=== PATIENT | female | born 1980 | race Caucasian/White ===

== ENCOUNTER 2019-05-17 14:50 | Inpatient (IN) | payer OTHER ==
[2019-05-17] MEDS ORDERED: SODIUM CHLORIDE 0.9% 1,000 ML IV STA ×2 (15:38)
[2019-05-17] MEDS ORDERED: LORazepam 2 MG/ML INJ IV STA (15:39)
--- NOTE | 2019-05-17 15:59 | ED ---
General Adult HPI <Francisco Sotelo - Last Filed: 05/17/19 19:35> - General Source: patient, RN notes reviewed, old records reviewed Mode of arrival: ambulatory Limitations: no limitations <Claudia Sargentily - Last Filed: 05/17/19 19:48> - General Chief complaint: Chest Pain Stated complaint: Chest pain & pressure Time Seen by Provider: 05/17/19 15:26 - History of Present Illness Initial comments: 39-year-old female presents today for evaluation for concern for chest discomfort. Symptoms starting last night. She felt a sharp ball-like symptom in her chest, complaining of tightness feeling. She states that her heart rate seems to be high and fluttering. Patient states that she's been having symptoms off and on for a few months worsewith exertion, She reports it seemed like it would eventually would cause her to come to the hospital. She has not seen a primary care doctor ever been evaluated for this before. He states sometimes she feels dizzy and near syncopal. (Jodie Sargent) - Related Data Home Medications Medication Instructions Recorded Confirmed Calcium Carbonate [Tums] 500 mg PO QID PRN 05/17/19 05/17/19 Allergies Allergy/AdvReac Type Severity Reaction Status Date / Time No Known Allergies Allergy Verified 05/17/19 18:44 Review of Systems ROS Other: All systems not noted in ROS Statement are negative. <Francisco Sotelo - Last Filed: 05/17/19 19:35> ROS Other: All systems not noted in ROS Statement are negative. <Jodie Sargent - Last Filed: 05/17/19 19:48> ROS Statement: Those systems with pertinent positive or pertinent negative responses have been documented in the HPI. Past Medical History Past Medical History: No Reported History History of Any Multi-Drug Resistant Organisms: None Reported Additional Past Surgical History / Comment(s): tubal ligation Past Psychological History: No Psychological Hx Reported Smoking Status: Never smoker Past Alcohol Use History: Occasional Past Drug Use History: None Reported <Jodie Sargent - Last Filed: 05/17/19 19:48> General Exam Limitations: no limitations Head exam: Present: atraumatic, normocephalic, normal inspection Eye exam: Present: normal appearance, PERRL, EOMI. Absent: scleral icterus, conjunctival injection, periorbital swelling ENT exam: Present: normal exam, mucous membranes moist Neck exam: Present: normal inspection. Absent: tenderness, meningismus, lymphadenopathy Respiratory exam: Present: normal lung sounds bilaterally. Absent: respiratory distress, wheezes, rales, rhonchi, stridor Cardiovascular Exam: Present: normal rhythm, tachycardia (120 bpm), normal heart sounds. Absent: regular rate, systolic murmur, diastolic murmur, rubs, gallop, clicks GI/Abdominal exam: Present: soft, normal bowel sounds. Absent: distended, tenderness, guarding, rebound, rigid Back exam: Present: normal inspection Neurological exam: Present: alert, oriented X3, CN II-XII intact Psychiatric exam: Present: normal affect, normal mood <Jodie Sargent - Last Filed: 05/17/19 19:48> - General Exam Comments Initial Comments: 1-year-old female. Alert and oriented 3 (Jodie Sargent) Course Vital Signs 05/17/19 05/17/19 05/17/19 14:54 15:25 15:27 Temperature 99 F Pulse Rate 127 H Pulse Rate [ 120 H Tromper ] Respiratory 16 43 H Rate Blood Pressure 158/125 O2 Sat by Pulse 98 Oximetry 05/17/19 05/17/19 05/17/19 15:30 16:00 16:30 Temperature Pulse Rate 128 H 104 H 104 H Pulse Rate [ Tromper ] Respiratory 20 16 16 Rate Blood Pressure 164/132 160/119 144/107 O2 Sat by Pulse Oximetry 05/17/19 05/17/19 05/17/19 17:00 17:30 18:00 Temperature Pulse Rate 100 100 100 Pulse Rate [ Tromper ] Respiratory 19 16 18 Rate Blood Pressure 133/93 134/107 136/99 O2 Sat by Pulse Oximetry 05/17/19 19:08 Temperature Pulse Rate Pulse Rate [ Tromper ] Respiratory Rate Blood Pressure 132/93 O2 Sat by Pulse Oximetry Medical Decision Making - Lab Data Result diagrams: 05/17/19 15:30 05/17/19 15:30 <Francisco Sotelo - Last Filed: 05/17/19 19:35> - Lab Data Result diagrams: 05/17/19 15:30 05/17/19 15:30 <Jodie Sargent - Last Filed: 05/17/19 19:48> - Medical Decision Making 39-year-old female presents today for evaluation for concerns for chest pain. S ubsternal nature. Some near syncopal episodes. No significant history. She reports she's been having some history of palpitations. She arrived with heart rates in 1:30 but sinus tachycardia. She states it feels that there is a pressure on her chest. Patient's initial troponin was negative. Patient's vital signs have improved after Ativan, was still complains of some chest pressure reading in a 6 out of 10. Morphine and aspirin were given. Patient that at this time for serial troponins. Discussed case with Dr. Leal. (Jodie Sargent) - Lab Data Lab Results 05/17/19 05/17/19 05/17/19 Range/Units 15:30 15:30 15:30 WBC 8.7 (3.8-10.6) k/uL RBC 4.73 (3.80-5.40) m/uL Hgb 15.5 (11.4-16.0) gm/dL Hct 47.3 H (34.0-46.0) % MCV 99.9 (80.0-100.0) fL MCH 32.7 (25.0-35.0) pg MCHC 32.7 (31.0-37.0) g/dL RDW 12.3 (11.5-15.5) % Plt Count 338 (150-450) k/uL Neutrophils % 73 % Lymphocytes % 16 % Monocytes % 5 % Eosinophils % 1 % Basophils % 2 % Neutrophils # 6.4 (1.3-7.7) k/uL Lymphocytes # 1.4 (1.0-4.8) k/uL Monocytes # 0.4 (0-1.0) k/uL Eosinophils # 0.1 (0-0.7) k/uL Basophils # 0.2 (0-0.2) k/uL PT 10.1 (9.0-12.0) sec INR 0.9 (<1.2) APTT 21.9 L (22.0-30.0) sec D-Dimer 0.38 (<0.60) mg/L FEU Sodium 138 (137-145) mmol/L Potassium 4.3 (3.5-5.1) mmol/L Chloride 103 (98-107) mmol/L Carbon Dioxide 20 L (22-30) mmol/L Anion Gap 15 mmol/L BUN 10 (7-17) mg/dL Creatinine 0.82 (0.52-1.04) mg/dL Est GFR (CKD-EPI)AfAm >90 (>60 ml/min/1.73 sqM) Est GFR (CKD-EPI)NonAf 89 (>60 ml/min/1.73 sqM) Glucose 81 (74-99) mg/dL Calcium 10.7 H (8.4-10.2) mg/dL Magnesium 1.7 (1.6-2.3) mg/dL Total Bilirubin 1.2 (0.2-1.3) mg/dL AST 119 H (14-36) U/L ALT 130 H (4-34) U/L Alkaline Phosphatase 118 (38-126) U/L Troponin I (0.000-0.034) ng/mL NT-Pro-B Natriuret Pep pg/mL Total Protein 8.4 H (6.3-8.2) g/dL Albumin 5.1 H (3.5-5.0) g/dL Amylase 43 (30-110) U/L Lipase 86 (23-300) U/L 05/17/19 05/17/19 05/17/19 Range/Units 15:30 15:30 19:08 WBC (3.8-10.6) k/uL RBC (3.80-5.40) m/uL Hgb (11.4-16.0) gm/dL Hct (34.0-46.0) % MCV (80.0-100.0) fL MCH (25.0-35.0) pg MCHC (31.0-37.0) g/dL RDW (11.5-15.5) % Plt Count (150-450) k/uL Neutrophils % % Lymphocytes % % Monocytes % % Eosinophils % % Basophils % % Neutrophils # (1.3-7.7) k/uL Lymphocytes # (1.0-4.8) k/uL Monocytes # (0-1.0) k/uL Eosinophils # (0-0.7) k/uL Basophils # (0-0.2) k/uL PT (9.0-12.0) sec INR (<1.2) APTT (22.0-30.0) sec D-Dimer (<0.60) mg/L FEU Sodium (137-145) mmol/L Potassium (3.5-5.1) mmol/L Chloride (98-107) mmol/L Carbon Dioxide (22-30) mmol/L Anion Gap mmol/L BUN (7-17) mg/dL Creatinine (0.52-1.04) mg/dL Est GFR (CKD-EPI)AfAm (>60 ml/min/1.73 sqM) Est GFR (CKD-EPI)NonAf (>60 ml/min/1.73 sqM) Glucose (74-99) mg/dL Calcium (8.4-10.2) mg/dL Magnesium (1.6-2.3) mg/dL Total Bilirubin (0.2-1.3) mg/dL AST (14-36) U/L ALT (4-34) U/L Alkaline Phosphatase (38-126) U/L Troponin I <0.012 <0.012 (0.000-0.034) ng/mL NT-Pro-B Natriuret Pep 156 pg/mL Total Protein (6.3-8.2) g/dL Albumin (3.5-5.0) g/dL Amylase (30-110) U/L Lipase (23-300) U/L Disposition <Francisco Sotelo - Last Filed: 05/17/19 19:35> Time of Disposition: 19:48 <Jodie Sargent - Last Filed: 05/17/19 19:48> Clinical Impression: Atypical chest pain, Chest pain Disposition: [facility] Condition: Undetermined Instructions (If sedation given, give patient instructions): Chest Pain (ED) Referrals: None,Stated [Primary Care Provider] - 1-2 days
[2019-05-17 16:13] LABS: Basophils # (A) 0.2 k/uL (0-0.2); Basophils % (A) 2 %; Eosinophils # (A) 0.1 k/uL (0-0.7); Eosinophils % (A) 1 %; HCT 47.3 % (34.0-46.0); HGB 15.5 gm/dL (11.4-16.0); Lymphocytes # (A) 1.4 k/uL (1.0-4.8); Lymphocytes % (A) 16 %; MCH 32.7 pg (25.0-35.0); MCHC 32.7 g/dL (31.0-37.0); MCV 99.9 fL (80.0-100.0); Mean Platelet Volume 8.3; Monocytes # (A) 0.4 k/uL (0-1.0); Monocytes % (A) 5 %; Neutrophils # (A) 6.4 k/uL (1.3-7.7); Neutrophils % (A) 73 %; Platelet Count 338 k/uL (150-450); RBC 4.73 m/uL (3.80-5.40); RDW 12.3 % (11.5-15.5); WBC 8.7 k/uL (3.8-10.6)
[2019-05-17 16:25] LABS: ALT 130 U/L (4-34); AST 119 U/L (14-36); African American GFR (CKD) >90 (>60 ml/min/1.73 sqM); Albumin 5.1 g/dL (3.5-5.0); Alkaline Phosphatase 118 U/L (38-126); Amylase 43 U/L (30-110); Anion Gap 15 mmol/L; Blood Urea Nitrogen 10 mg/dL (7-17); Calcium 10.7 mg/dL (8.4-10.2); Carbon Dioxide 20 mmol/L (22-30); Chloride 103 mmol/L (98-107); Glucose 81 mg/dL (74-99); Magnesium 1.7 mg/dL (1.6-2.3); Non-African American GFR(CKD) 89 (>60 ml/min/1.73 sqM); Potassium 4.3 mmol/L (3.5-5.1); Sodium 138 mmol/L (137-145); Total Bilirubin 1.2 mg/dL (0.2-1.3); Total Protein 8.4 g/dL (6.3-8.2)
--- NOTE | 2019-05-17 16:28 | XR ---
EXAMINATION TYPE: XR chest 2V DATE OF EXAM: 05/17/2019 COMPARISON: None INDICATION: Chest pain TECHNIQUE: Frontal and lateral views of the chest are obtained. FINDINGS: The heart size is normal. The pulmonary vasculature is normal. The lungs are clear. IMPRESSION: 1. No acute pulmonary process.
[2019-05-17 16:42] LABS: D-Dimer 0.38 mg/L FEU (<0.60); INR 0.9 (<1.2); Prothrombin Time 10.1 sec (9.0-12.0)
[2019-05-17 16:58] LABS: Partial Thromboplastin Time 21.9 sec (22.0-30.0)
[2019-05-17] MEDS ORDERED: MORPHINE SULFATE 4 MG/ML SYRINGE IVP STA (17:30)
[2019-05-17] MEDS ORDERED: ASPIRIN 325 MG TAB PO STA (17:30)
[2019-05-17] MEDS ORDERED: NITROGLYCERIN SL TABS 0.4 MG TAB SUBLINGUAL PRN (19:34)
[2019-05-17] MEDS ORDERED: ACETAMINOPHEN TAB 325 MG TAB PO PRN (19:37)
[2019-05-17] MEDS ORDERED: MAG HYDROX/AL HYDROX/SIMETH 30 ML, HYOSCYAMINE ELIXIR 10 ML, LIDOCAINE VISCOUS 2% 10 ML PO ONE ×3 (20:22)
--- NOTE | 2019-05-17 20:48 | P.HPIM ---
History of Present Illness H&P Date: 05/17/19 Chief Complaint: Epigastric pain The patient is a 39-year-old female with a past medical history of acid reflux on Tums who presents to the ER with chief complaint of epigastric pain. Apparently the patient has been having intermittent episodes of midepigastric pain was associated nausea. The patient complains of feeling like food is stuck in her throat and describes a golf ball sensation, she also reports episodes of ongoing burning, belching and bloating and early satiety after eating, she reports decreased by mouth intake since Thursday. She denies any radiation, she denies any alcohol use. She does state that she has been taking NSAIDs specifically ibuprofen over the last few weeks every other day secondary to toothache. She reports episodes of palpitations lightheadedness since Thursday, she denies any history of hypertension, she denies any focal weakness or slurred speech. She denies any history of smoking, denies any premature heart disease in her family. In the ER the patient had a comprehensive workup her CBC was within normal limits, d-dimer negative at 0.38, serum bicarb 20, calcium 10.7, AST ALT 119/130, troponin was less than 0.012, chest x-ray showed no acute pulmonary process. On presentation the patient was apparently tachycardic 130 antihypertensive diastolically up to 103. The patient is recommended for admission to rule out ACS Review of Systems Pertinent positives per HPI all other review of systems are otherwise negative Past Medical History Past Medical History: No Reported History History of Any Multi-Drug Resistant Organisms: None Reported Additional Past Surgical History / Comment(s): tubal ligation Past Psychological History: No Psychological Hx Reported Smoking Status: Never smoker Past Alcohol Use History: Occasional Past Drug Use History: None Reported Medications and Allergies Home Medications Medication Instructions Recorded Confirmed Type Calcium Carbonate [Tums] 500 mg PO QID PRN 05/17/19 05/17/19 History Allergies Allergy/AdvReac Type Severity Reaction Status Date / Time No Known Allergies Allergy Verified 05/17/19 18:44 Physical Exam Vitals: Vital Signs Temp Pulse Pulse Resp BP Pulse Ox 05/17/19 20:16 99.9 F H 95 15 141/103 96 05/17/19 19:08 132/93 05/17/19 18:00 100 18 136/99 05/17/19 17:30 100 16 134/107 05/17/19 17:00 100 19 133/93 05/17/19 16:30 104 H 16 144/107 05/17/19 16:00 104 H 16 160/119 05/17/19 15:30 128 H 20 164/132 05/17/19 15:27 120 H 05/17/19 15:25 43 H 05/17/19 14:54 99 F 127 H 16 158/125 98 Intake and Output 05/17/19 05/17/19 05/17/19 06:59 14:59 22:59 Other: Weight 88.178 kg Constitutional: No acute distress, conversant, pleasant Eyes: Anicteric sclerae, moist conjunctiva, no lid-lag, PERRLA ENMT: NC/AT,Oropharynx clear, no erythema, exudates Neck:Supple, FROM, no masses, or JVD, No carotid bruits; No thyromegaly Lungs: Clear to auscultation, Clear to percussion, Normal respiratory effort, no accessory muscle use Cardiovascular: Heart regular in rate and rhythm, No murmurs, gallops, or rubs no peripheral edema Abdominal: Soft Nontender, nom distended, no guarding, no rebound or rigidity, Normoactive bowel sounds No hepatomegaly, No splenomegaly, No palpable mass No abdominal wall hernia noted Skin: Normal temperature, tone, texture, turgor, No induration No subcutaneous nodules, No rash, lesions, No ulcers Extremities:No digital cyanosis No clubbing, Pedal pulses intact and symmetrical Radial pulses intact and symmetrical Normal gait and station, No calf tenderness Psychiatric: Alert and oriented to person, place and time, Appropriate affect Intact judgement Neuro: Muscles Strength 5/5 in all 4 extremities, Sensation to light touch grossly present throughout, Cranial nerves II-XII grossly intact. No focal sensory deficits Results CBC & Chem 7: 05/17/19 15:30 05/17/19 15:30 Labs: Abnormal Lab Results - Last 24 Hours (Table) 05/17/19 05/17/19 05/17/19 Range/Units 15:30 15:30 15:30 Hct 47.3 H (34.0-46.0) % APTT 21.9 L (22.0-30.0) sec Carbon Dioxide 20 L (22-30) mmol/L Calcium 10.7 H (8.4-10.2) mg/dL AST 119 H (14-36) U/L ALT 130 H (4-34) U/L Total Protein 8.4 H (6.3-8.2) g/dL Albumin 5.1 H (3.5-5.0) g/dL Assessment and Plan Assessment: Atypical chest pain Midepigastric pain Transaminitis Elevated blood pressure without diagnosis of hypertension GERD Plan: The patient is placed in observation anticipated less than 2 midnight stay with atypical chest pain/mid epigastric discomfort with need to rule out ACS. Her history the patient's symptoms appear to be more GI related secondary to reflux versus peptic ulcer disease given history of ibuprofen use and low likelihood of cardiac etiology. We'll however continue to trend her troponins and order echocardiogram. We'll order a GI cocktail and institute PPI therapy with GI consultation to evaluate for dysphagia, will order right upper quadrant ultrasound Evaluate her transaminitis, of note her lipase level was negative AT 86. We'll continue to follow the patient's clinical course and follow-up consultants recommendations CODE STATUS: Full code Discussed plan of care with: Patient and her Anticipated discharge place: Home Prophylaxis: PPIs SCDs and heparin
[2019-05-17] MEDS: METOPROLOL TARTRATE 25 MG TAB PO SCH (21:13)
--- NOTE | 2019-05-17 21:24 | US ---
EXAMINATION TYPE: US abdomen limited DATE OF EXAM: 05/17/2019 COMPARISON: CT 2009 CLINICAL HISTORY: transaminitis. Transaminitis. EXAM MEASUREMENTS: Liver Length: 14.6 cm Gallbladder Wall: 0.14 cm CBD: Not visualized Right Kidney: 9.1 x 5.0 x 5.4 cm *Limited due to body habitus and gas. Pancreas: Not well visualized Liver: Appears to have an increased echogenicity. Limited. Gallbladder: Artifact vs. minimal internal echoes seen posteriorly. Evidence for sonographic Syed's sign: No CBD: Not visualized Right Kidney: No hydronephrosis or masses seen IMPRESSION: No gallstones or dilated ducts. There is probably some fatty infiltration of the liver.
[2019-05-18] MEDS: HEPARIN SODIUM,PORCINE 5,000 UNIT/ML 1 ML VIAL SQ SCH ×4 (02:23→23:45)
[2019-05-18 03:36] LABS: Cholesterol 211 mg/dL (<200); HDL Cholesterol 97 mg/dL (40-60); LDL Cholesterol,Calculated 98 mg/dL (0-99); Triglycerides 79 mg/dL (<150)
[2019-05-18] MEDS ORDERED: PANTOPRAZOLE 40 MG TABLET PO SCH (07:30)
[2019-05-18] MEDS: METOPROLOL TARTRATE 25 MG TAB PO SCH ×2 (10:44→19:44)
[2019-05-18] MEDS: ASPIRIN 325 MG TAB PO SCH (10:44)
[2019-05-18] MEDS: PANTOPRAZOLE 40 MG TABLET PO SCH ×2 (10:44→17:31)
[2019-05-18] MEDS: ATORVASTATIN 80 MG TAB PO SCH (10:44)
--- NOTE | 2019-05-18 12:52 | ECHOF ---
Referral Reason:chest pain MEASUREMENTS -------- HEIGHT: 165.1 cm WEIGHT: 88.0 kg BP: RVIDd: 2.4 cm (< 3.3) IVSd: 1.0 cm (0.6 - 1.1) LVIDd: 3.8 cm (3.9 - 5.3) LVPWd: 1.2 cm (0.6 - 1.1) IVSs: 1.5 cm LVIDs: 2.1 cm LVPWs: 2.1 cm LAESV Index (A-L): 25.80 ml/m Ao Diam: 3.3 cm (2.0 - 3.7) AV Cusp: 2.4 cm (1.5 - 2.6) LA Diam: 2.6 cm (2.7 - 3.8) MV EXCURSION: 15.271 mm (> 18.000) MV EF SLOPE: 113 mm/s (70 - 150) EPSS: 0.7 cm MV E Guillermo: 0.56 m/s MV DecT: 165 ms MV A Guillermo: 0.61 m/s MV E/A Ratio: 0.92 RAP: 5.00 mmHg RVSP: 24.14 mmHg FINDINGS -------- Sinus rhythm. This was a technically difficult study with suboptimal views. The left ventricular size is normal. There is borderline concentric left ventricular hypertrophy. Overall left ventricular systolic function is normal with, an EF between 55 - 60 %. The diastolic filling pattern is normal for the age of the patient 6.40. The right ventricle is normal in size. The left atrial size is normal. Normal LA size by volume 22+/-6 ml/m2. The right atrial size is normal. 5.0mg of Lumason was utilized for enhancement of images The aortic valve is trileaflet and appears structurally normal. Normal appearing mitral valve. The mitral valve is normal. There is trace mitral regurgitation. The tricuspid valve appears structurally normal. Trace tricuspid regurgitation present. Right dio tricular systolic pressure is normal at < 35 mmHg. There is no pulmonic regurgitation present. The aortic root size is normal. Normal inferior vena cava with normal inspiratory collapse consistent with estimated right atrial pre ssure of 5 mmHg. IVC Not well visulized. There is no pericardial effusion. CONCLUSIONS -------- 1. Sinus rhythm. 2. This was a technically difficult study with suboptimal views. 3. The left ventricular size is normal. 4. There is borderline concentric left ventricular hypertrophy. 5. Overall left ventricular systolic function is normal with, an EF between 55 - 60 %. 6. The diastolic filling pattern is normal for the age of the patient 6.40 7. The right ventricle is normal in size. 8. The left atrial size is normal. 9. Normal LA size by volume 22+/-6 ml/m2. 10. The right atrial size is normal. 11. 5.0mg of Lumason was utilized for enhancement of images 12. The aortic valve is trileaflet and appears structurally normal. 13. Normal appearing mitral valve. 14. The mitral valve is normal. 15. There is trace mitral regurgitation. 16. The tricuspid valve appears structurally normal. 17. Trace tricuspid regurgitation present. 18. Right ventricular systolic pressure is normal at < 35 mmHg. 19. There is no pulmonic regurgitation present. 20. The aortic root size is normal. 21. Normal inferior vena cava with normal inspiratory collapse consistent with estimated right atrial pressure of 5 mmHg. 22. IVC Not well visulized. 23. There is no pericardial effusion. TELETYPESETTER MONITOR: Rosetta Gutierrez RDCS
[2019-05-18] MEDS ORDERED: INFLUENZA VACCINE (6 MOS+) 60 MCG/0.5 ML SYRINGE IM ONE (13:40)
[2019-05-18] MEDS ORDERED: MELATONIN 5 MG TABLET PO PRN (18:25)
--- NOTE | 2019-05-18 23:52 | CONS ---
CONSULTATION DATE OF DICTATION: 05/18/2019 REASON FOR CONSULTATION: Dysphagia and epigastric pain. HISTORY OF PRESENT ILLNESS: The patient is a 39-year-old pleasant white female with history of gastroesophageal reflux disease, on no maintenance medications, who presented to the emergency room complaining of severe epigastric pain and chest pain that started yesterday evening. The pain is mostly in the epigastric area and in the mid sternal area. She has been having severe dysphagia. She has a globus-like sensation in her throat area and also a fullness feeling in the mid sternal area; in fact, to an extent that she has not eaten any solid food since yesterday. She has some nausea but no emesis. She never had these symptoms in the past. She also was complaining of some palpitations and chest pain and was evaluated by Cardiology. Troponins were normal. In the emergency room, she was noted to have elevated LFTs with AST of 119 and ALT of 130, normal T-bilirubin and alkaline phosphatase. She did have an ultrasound of the gallbladder done that did not show any evidence of gallstones. She had a similar episode about 3 months ago that lasted for a few hours and then subsided. PAST MEDICAL HISTORY: GERD. PAST SURGICAL HISTORY: Tubal ligation. MEDICATIONS AT HOME: Occasional Tums. ALLERGIES: NO KNOWN DRUG ALLERGIES. SOCIAL HISTORY: No smoking. No alcohol use. FAMILY HISTORY: Unremarkable. REVIEW OF SYSTEMS: CARDIOPULMONARY: No chest pain or shortness of breath. GENITOURINARY: No dysuria or hematuria. MUSCULOSKELETAL: Unremarkable. SKIN: Unremarkable. ENDOCRINE: Unremarkable. PSYCHIATRIC: Unremarkable. NEUROLOGY: Unremarkable. ENT/VISION: Unremarkable. CONSTITUTIONAL: No recent weight loss. No fever, chills, night sweats. PHYSICAL EXAMINATION: She appears comfortable. No apparent distress. Vital signs are stable. Blood pressure is 145/88, pulse rate 101, temperature 97.8. HEENT examination unremarkable. Conjunctivae pink. Sclerae anicteric. Oral cavity no lesions. NECK: No JVD or lymph node enlargement. CHEST: Clear to auscultation. HEART: Regular rate and rhythm. ABDOMEN: Soft. There was very minimal tenderness in the epigastric area. Bowel sounds are positive. No organomegaly. EXTREMITIES: No pedal edema. SKIN: No rashes. NEUROLOGIC: Alert and oriented x3. No focal deficits. LABS/IMAGING: Labs done at the time of admission to the hospital showed WBC 8.7, hemoglobin 15.5. Platelets are normal. Basic metabolic panel is within normal limits. AST 119, ALT 130. T-bilirubin and alkaline phosphatase are within normal. Amylase and lipase are normal. Ultrasound of the abdomen done in the ER showed no evidence of gallstones or biliary ductal dilation. Evidence of fatty liver noted. IMPRESSION: 1. This is a patient who presented to the hospital with epigastric pain and midsternal chest pain associated with severe dysphagia and some painful swallowing that started yesterday evening. She was noted to have mild elevation of serum transaminases, but ultrasound of the abdomen did not show any evidence of gallstones. Some of her symptoms could be explained on the basis of severe gastroesophageal reflux disease, but possibility of peptic ulcer disease needs to be excluded. 2. Elevated liver function tests. Ultrasound of the abdomen did not show any evidence of gallstones. With an acute onset of abdominal pain, the possibility of CBD stone cannot be entirely excluded, though unlikely, given the normal bilirubin and alkaline phosphatase. RECOMMENDATIONS: 1. Clear liquid diet. 2. IV Protonix. 3. Will proceed with an upper endoscopy tomorrow. 4. Repeat LFTs in the morning. 5. If the LFTs continue to increase, will consider proceeding with an MRCP also. Thank you for this consultation. The plan was discussed with the patient. She is agreeable to it. MMODL / IJN: [id number] /
[2019-05-19 06:26] LABS: ALT 95 U/L (4-34); AST 86 U/L (14-36); African American GFR (CKD) >90 (>60 ml/min/1.73 sqM); Albumin 3.6 g/dL (3.5-5.0); Alkaline Phosphatase 69 U/L (38-126); Anion Gap 5 mmol/L; Blood Urea Nitrogen 7 mg/dL (7-17); Calcium 8.9 mg/dL (8.4-10.2); Carbon Dioxide 27 mmol/L (22-30); Chloride 107 mmol/L (98-107); Glucose 85 mg/dL (74-99); Non-African American GFR(CKD) 82 (>60 ml/min/1.73 sqM); Potassium 4.5 mmol/L (3.5-5.1); Sodium 139 mmol/L (137-145); Total Bilirubin 0.7 mg/dL (0.2-1.3); Total Protein 6.4 g/dL (6.3-8.2)
[2019-05-19 08:09] VITALS: RESP 16
[2019-05-19] MEDS: METOPROLOL TARTRATE 25 MG TAB PO SCH (08:41)
[2019-05-19] MEDS: PANTOPRAZOLE 40 MG TABLET PO SCH (08:41)
[2019-05-19] MEDS: HEPARIN SODIUM,PORCINE 5,000 UNIT/ML 1 ML VIAL SQ SCH (08:41)
[2019-05-19] MEDS: ASPIRIN 325 MG TAB PO SCH (08:41)
[2019-05-19] MEDS: ATORVASTATIN 80 MG TAB PO SCH (08:41)
[2019-05-19] MEDS ORDERED: PROPOFOL 10 MG/ML 20 ML VIAL IV ONE (11:31)
[2019-05-19] MEDS ORDERED: LIDOCAINE 1% INJ 10MG/ML (20 ML MDV) ONE (11:31)
[2019-05-19] MEDS ORDERED: MIDAZOLAM 2 MG/2 ML VIAL ONE (11:31)
[2019-05-19] MEDS ORDERED: LACTATED RINGERS 1,000 ML IV ONE (11:35)
--- NOTE | 2019-05-19 11:57 | P.PCN ---
Date of Procedure: 05/19/19 Description of Procedure: BRIEF HISTORY: 39-year-old female who presents to the hospital with complaints of epigastric pain and midsternal chest pain associated with severe dysphagia and some painful swallowing. Symptoms started 2 days ago. She was also noted to have mild elevation in serum transaminases but ultrasound of the abdomen did not show any gallstones. Plan is for EGD for further evaluation. PROCEDURE PERFORMED: Esophagogastroduodenoscopy with biopsy. PREOPERATIVE DIAGNOSIS: Esophageal dysphagia, GERD. ESTIMATED BLOOD LOSS: Minimal. IV sedation per anesthesia. PROCEDURE: After informed consent was obtained, the patient was brought into the endoscopy unit. IV sedation was administered by Anesthesia under continuous monitoring. Initially the Olympus GIF-190 video endoscope was inserted into the mouth. Esophagus intubated without any difficulty. It was gradually advanced into the stomach and duodenum and carefully examined. The bulb and the second part of the duodenum appeared normal, with biopsies taken. The scope at this time was withdrawn to the stomach, adequately insufflated with air, and upon careful examination, mucosa of the antrum, body, cardia and the fundus appeared normal, except for some mild erythema in a linear fashion in the antrum and body suggestive of gastritis with biopsies of antrum and body taken. The scope was then withdrawn into the esophagus. The GE junction was located at 37 cm from the incisors. The esophagus appeared grossly normal except for some erythema and superficial erosions in the distal esophagus consistent with LA grade C esophagitis with biopsies of the distal esophagus taken. The patient tolerated the procedure well. IMPRESSION: 1. Mild gastritis antrum and body, biopsied. 2. LA grade B distal esophagitis, biopsied. 3. Duodenal biopsies. RECOMMENDATIONS: The findings of this examination were discussed with the patient and her ex- . Okay to resume diet. Okay to resume medications. Would recommend continuing Protonix 40 mg twice daily for symptomatic relief of heartburn. Aw ait pathology from biopsies. Okay for discharge from GI standpoint.
[2019-05-19 12:08] VITALS: TEMP 98.8
[2019-05-19 12:49] VITALS: BP 124/94; PULSE 91
--- NOTE | 2019-05-19 12:53 | P.PN ---
Subjective Progress Note Date: 05/18/19 Patient is a 39-year-old female with a PMH of GERD who presented to the Ed w/ complaints of epigastric pain with nausea. The patient endorsed dysphagia along with episodes of burning, belching, and often early satiety. The patient denied SOB, palpitations, diaphoresis, or dizziness. The patient reported using NSAIDs recently due to a tooth ache. The patient also denied history of premature CAD in her family. She underwent an extensive evaluation in the ED w/ EKG showing sinus tachycardia @ 115 bpm with Troponin < 0.012, AST 119, ALT 130. She was admitted for further management. She underwent an echocardiogram which was unremarkable. Troponins were negative x 3. GI was consulted and recommended EGD which the patient is scheduled for on 05/19. She was seen at the bedside on 05/18. She was in good spirits and noted that her pain had resolved. She denied chest pain, epigastric pain, SOB, nausea, vomiting, diarrhea, palpitations, or dizziness. She endorsed continued dsphagia. Objective - Vital Signs Vital signs: Vital Signs Temp 98.3 F 05/18/19 15:23 Pulse 92 05/18/19 16:00 Resp 18 05/18/19 16:00 BP 156/108 05/18/19 15:23 Pulse Ox 98 05/18/19 15:23 Intake & Output 05/17/19 05/18/19 05/18/19 18:59 06:59 18:59 Weight 88.178 kg 88.178 kg Other: Voiding Method Toilet - Exam General: Non-toxic, in no acute distress, appears stated age, normal weight HEENT: NC/AT, anicteric sclerae, moist conjunctiva, no lid-lag, PERRLA Cardiovascular: S1/S2 wnl, no murmurs, rubs, or gallops Lungs: Clear to auscultation, normal respiratory effort, no accessory muscle use Abdominal: Soft, mild epigastric tenderness, non-distended, no guarding, rebound, or rigidity Skin: Warm, dry Extremities: No edema or contractures Psychiatric: Alert and oriented to person, place and time, appropriate affect Neuro: CN II-XII grossly intact, Strength 5/5 in all 4 extremities, Speech intact, Sensation to light touch grossly intact throughout - Labs CBC & Chem 7: 05/17/19 15:30 05/19/19 05:45 Labs: Abnormal Lab Results - Last 24 Hours (Table) 05/18/19 Range/Units 03:11 Cholesterol 211 H (<200) mg/dL HDL Cholesterol 97 H (40-60) mg/dL Assessment and Plan Plan: Epigastric abdominal pain, likely GERD -ACS ruled out, troponin neg x 3 -Echocardiogram unremarkable -Scheduled for EGD on 05/19 Abnormal LFTs -Monitor for now Elevated blood pressure, without diagnoses of HTN -Monitor for now -May start antihypertensives as warranted
--- NOTE | 2019-05-19 13:44 | P.DS ---
Providers Date of admission: 05/19/19 09:32 Expected date of discharge: 05/19/19 Attending physician: Prince Honeycutt MD Consults: 05/17/19 20:36 Consult Physician Routine Consulting Provider: Gerard Rodrigues Consult Reason/Comments: dysphagia Do you want consulting provider notified?: Yes Primary care physician: Stated None Hospital Course: Patient is a 39-year-old female with a PMH of GERD who presented to the ED w/ complaints of epigastric pain with nausea. The patient endorsed dysphagia along with episodes of burning, belching, and often early satiety. The patient denied SOB, palpitations, diaphoresis, or dizziness. The patient reported using NSAIDs recently due to a tooth ache. The patient also denied history of premature CAD in her family. She underwent an extensive evaluation in the ED w/ EKG showing sinus tachycardia @ 115 bpm with Troponin < 0.012, AST 119, ALT 130. She was admitted for further management. She underwent an echocardiogram which was unremarkable. Troponins were negative x 3. GI was consulted and recommended EGD which the patient underwent on 05/19, revealing mild gastritis and esophagitis. The patient was advised to continue taking Protonix 40 mg twice daily for symptomatic control. She was seen and evaluated at the bedside on 05/19. She reported feeling well and denied active complaints. Noted that she felt back to her baseline, though continued having mild dysphagia. Denied chest pain, SOB, nausea, vomiting, diaphoresis, palpitations, or dizziness. She was advised to continue with the protonix and follow-up with Dr Ayala and her PCP. Physical Examination General: Non-toxic, in no acute distress, appears stated age, normal weight HEENT: NC/AT, anicteric sclerae, moist conjunctiva, no lid-lag, PERRLA Cardiovascular: S1/S2 wnl, no murmurs, rubs, or gallops Lungs: Clear to auscultation, normal respiratory effort, no accessory muscle use Abdominal: Soft, non-tender, non-distended, no guarding, rebound, or rigidity Skin: Warm, dry Extremities: No edema or contractures Psychiatric: Alert and oriented to person, place and time, appropriate affect Neuro: CN II-XII grossly intact, Strength 5/5 in all 4 extremities, Speech intact, Sensation to light touch grossly intact throughout Discharge diagnosis:Gastritis; esophagitis; Abnormal LFTs; mild fatty inf iltration of liver A total of 40 minutes of time were spent preparing this complex discharge summary. Patient Condition at Discharge: Stable Plan - Discharge Summary Discharge Rx Participant: No New Discharge Prescriptions: New Pantoprazole [Protonix] 40 mg PO AC-BID #60 tablet. Continue Calcium Carbonate [Tums] 500 mg PO QID PRN PRN Reason: Gi Upset Discharge Medication List Calcium Carbonate [Tums] 500 mg PO QID PRN 05/17/19 [History] Pantoprazole [Protonix] 40 mg PO AC-BID #60 tablet. 05/19/19 [Rx] Follow up Appointment(s)/Referral(s): Libby Ayala MD [STAFF PHYSICIAN] - 06/13/19 10:00 am (Call office before appointment. Take drivers license, medication list and insurance cards to appointment.) None,Stated [Primary Care Provider] - 1-2 days Patient Instructions/Handouts: Chest Pain (ED), Gastritis (DC), Esophagitis (DC) Discharge Disposition: HOME SELF-CARE
== END 2019-05-19 13:46 | disposition home or self-care (01) | DRG 392 ==
LOC: EC 14:50 → 1SOBS 19:34 → OBSVTOIN 05-19 09:32
PROVIDERS: ADMIT Family Medicine; ATTEND Family Medicine
PROC: 0DB78ZX Excision of Stomach, Pylorus, Via Natural or Artificial Opening Endoscopic, Diagnostic (ICD-10-PCS; principal; 2019-05-19 07:50)
PROC: 0DB58ZX Excision of Esophagus, Via Natural or Artificial Opening Endoscopic, Diagnostic (ICD-10-PCS; principal; 2019-05-19 07:50)
DX: K29.70 Gastritis, unspecified, without bleeding (principal); K21.0 Gastro-esophageal reflux disease with esophagitis; K76.0 Fatty (change of) liver, not elsewhere classified; R13.14 Dysphagia, pharyngoesophageal phase; Z98.51 Tubal ligation status
CPT/HCPCS: 36415; 43239; 71046; 76705; 80053; 80061; 81025; 82150; 83690; 83735; 83880; 84484; 85025; 85379; 85610; 85730; 88305; 88342; 90686; 93005; 93306; 96361; 96372; 96374; 96375; 99285

== ENCOUNTER 2020-01-19 13:40 | Emergency (ER) | payer OTHER ==
[2020-01-19 13:49] VITALS: RESP 18; TEMP 98.7
--- NOTE | 2020-01-19 14:04 | ED ---
General Adult HPI - General Chief complaint: Recheck/Abnormal Lab/Rx Stated complaint: High BP Time Seen by Provider: 01/19/20 13:50 Source: patient, RN notes reviewed Mode of arrival: wheelchair Limitations: no limitations - History of Present Illness Initial comments: This is a 39-year-old female with a necessity benign history other than a workup for chest pain the past who presents today with complaints of tachycardia and elevated blood pressure. She states she was somewhat feeling anxious to her children starting school again she took her blood pressure at a neighbor's house today numbers were 184/118, 171/113, and 160/118. She feels somewhat anxious and shaky has some dizziness. This didn't feel right all day. She denies any fevers chills nausea vomiting sweats no other symptoms reported at this time. No other modifying factors there is a family history of thyroid disease but no known history of hypertension at this time. Patient states she does not take any caffeinated products. No drugs or alcohol. - Related Data Home Medications Medication Instructions Recorded Confirmed Omeprazole Magnesium [PriLOSEC OTC] 20 mg PO DAILY 01/19/20 01/19/20 Previous Rx's Medication Instructions Recorded Magnesium 200 mg PO AC-BID #14 tablet 01/19/20 chlordiazePOXIDE HCl [Librium] 5 mg PO TID 3 Days #9 cap 01/19/20 chlordiazePOXIDE HCl [Librium] 10 mg PO TID 3 Days #9 capsule 01/19/20 chlordiazePOXIDE HCl [Librium] 20 mg PO TID 3 Days #18 capsule 01/19/20 chlordiazePOXIDE HCl [Librium] 25 mg PO TID 3 Days #9 capsule 01/19/20 cloNIDine HCL [Catapres] 0.1 mg PO BID #14 tab 01/19/20 Allergies Allergy/AdvReac Type Severity Reaction Status Date / Time No Known Allergies Allergy Verified 01/19/20 14:59 Review of Systems ROS Statement: Those systems with pertinent positive or pertinent negative responses have been documented in the HPI. ROS Other: All systems not noted in ROS Statement are negative. Past Medical History Past Medical History: Hypertension History of Any Multi-Drug Resistant Organisms: None Reported Past Surgical History: Tubal Ligation Additional Past Surgical History / Comment(s): tubal ligation Past Anesthesia/Blood Transfusion Reactions: No Reported Reaction Past Psychological History: No Psychological Hx Reported Smoking Status: Former smoker Past Alcohol Use History: Occasional Past Drug Use History: None Reported - Past Family History Father Family Medical History: Cancer Additional Family Medical History / Comment(s): Father of lung cancer. He was a [place] . Mother Family Medical History: No Reported History Additional Family Medical History / Comment(s): Mother is healthy General Exam - General Exam Comments Initial Comments: This is a well-developed well-nourished awake alert oriented 3 female Limitations: no limitations General appearance: alert, anxious Head exam: Present: atraumatic, normocephalic, normal inspection Eye exam: Present: normal appearance, PERRL, EOMI. Absent: scleral icterus, conjunctival injection, periorbital swelling ENT exam: Present: normal exam, mucous membranes moist Neck exam: Present: normal inspection, full ROM, other. Absent: tenderness, meningismus, lymphadenopathy Respiratory exam: Present: normal lung sounds bilaterally. Absent: respiratory distress, wheezes, rales, rhonchi, stridor Cardiovascular Exam: Present: normal rhythm, tachycardia, normal heart sounds. Absent: systolic murmur, diastolic murmur, rubs, gallop, clicks GI/Abdominal exam: Present: soft, normal bowel sounds. Absent: distended, tenderness, guarding, rebound, rigid Extremities exam: Present: normal inspection, full ROM, normal capillary refill. Absent: tenderness, pedal edema, joint swelling, calf tenderness Back exam: Present: normal inspection Neurological exam: Present: alert, oriented X3, CN II-XII intact Psychiatric exam: Present: normal affect, normal mood Skin exam: Present: warm, dry, intact, normal color. Absent: rash Course Vital Signs 01/19/20 01/19/20 01/19/20 13:45 14:30 15:00 Temperature 98.7 F Pulse Rate 111 H Respiratory 18 18 Rate Blood Pressure 184/143 149/127 142/108 O2 Sat by Pulse 97 96 Oximetry 01/19/20 01/19/20 01/19/20 15:30 16:00 16:30 Temperature Pulse Rate 114 H 108 H Respiratory 18 18 Rate Blood Pressure 148/117 158/123 151/106 O2 Sat by Pulse 97 96 Oximetry 01/19/20 17:00 Temperature Pulse Rate Respiratory Rate Blood Pressure 149/110 O2 Sat by Pulse 97 Oximetry - Reevaluation(s) Reevaluation #1: 01/19/20 18:39 I did reevaluate patient several occasions she continued to be tachycardic with elevated blood pressure she did respond to IV fluids IV magnesium and later to benzodiazepine. She did later admit that she's been drinking up to a pint of vodka per day. She has voices desire to stop. EKG Findings - EKG Results: EKG: interpreted by KATYA, sinus rhythm (Normal sinus rhythm a 102 NJ interval 1:30 QRS duration 84 QT since QTC 352/458 tachycardia noted no definite acute ST-T wave changes.) Medical Decision Making - Medical Decision Making I did a long discussion with the patient and her regarding the findings patient presented initially with complaints of elevated blood pressure. She was noted be tachycardic was later learned that she had been drinking as much the plane of vodka per day. She clinically appear to be in some withdrawal. Not having hallucinations no nausea no vomiting. I do long discussion patient like to be discharged she is agreed to outpatient medication she does have a follow- up with her family doctor on the of this month which I did suggest she call earlier. She will be discharged she does have prescriptions she will be given. She is return if any problems. The patient will be placed on Catapres 0.1 mg twice a day for a week he Librium taper addition to this magnesium s upplementation. Patient was instructed not to operate machinery or drive motor vehicles while on the medication. - Lab Data Result diagrams: 01/19/20 14:53 01/19/20 14:53 Lab Results 01/19/20 01/19/20 01/19/20 Range/Units 14:53 14:53 14:53 WBC 10.5 (3.8-10.6) k/uL RBC 4.16 (3.80-5.40) m/uL Hgb 13.8 (11.4-16.0) gm/dL Hct 42.6 (34.0-46.0) % MCV 102.3 H (80.0-100.0) fL MCH 33.2 (25.0-35.0) pg MCHC 32.4 (31.0-37.0) g/dL RDW 13.0 (11.5-15.5) % Plt Count 283 (150-450) k/uL Neutrophils % 89 % Lymphocytes % 6 % Monocytes % 3 % Eosinophils % 0 % Basophils % 1 % Neutrophils # 9.3 H (1.3-7.7) k/uL Lymphocytes # 0.6 L (1.0-4.8) k/uL Monocytes # 0.3 (0-1.0) k/uL Eosinophils # 0.0 (0-0.7) k/uL Basophils # 0.1 (0-0.2) k/uL Macrocytosis Slight D-Dimer 1.21 H (<0.60) mg/L FEU Sodium 139 (137-145) mmol/L Potassium 3.9 (3.5-5.1) mmol/L Chloride 104 (98-107) mmol/L Carbon Dioxide 19 L (22-30) mmol/L Anion Gap 16 mmol/L BUN 9 (7-17) mg/dL Creatinine 0.76 (0.52-1.04) mg/dL Est GFR (CKD-EPI)AfAm >90 (>60 ml/min/1.73 sqM) Est GFR (CKD-EPI)NonAf >90 (>60 ml/min/1.73 sqM) Glucose 89 (74-99) mg/dL Calcium 9.4 (8.4-10.2) mg/dL Magnesium 1.4 L (1.6-2.3) mg/dL Total Bilirubin 0.8 (0.2-1.3) mg/dL AST 297 H (14-36) U/L ALT 137 H (4-34) U/L Alkaline Phosphatase 93 (38-126) U/L Creatine Kinase 96 (30-135) U/L Troponin I (0.000-0.034) ng/mL Total Protein 7.5 (6.3-8.2) g/dL Albumin 4.5 (3.5-5.0) g/dL TSH 0.628 (0.465-4.680) mIU/L Urine Color Urine Appearance (Clear) Urine pH (5.0-8.0) Ur Specific Goessel (1.001-1.035) Urine Protein (Negative) Urine Glucose (UA) (Negative) Urine Ketones (Negative) Urine Blood (Negative) Urine Nitrite (Negative) Urine Bilirubin (Negative) Urine Urobilinogen (<2.0) mg/dL Ur Leukocyte Esterase (Negative) Urine RBC (0-5) /hpf Ur Squamous Epith Cells (0-4) /hpf Urine Mucus (None) /hpf Urine HCG, Qual (Not Detectd) 01/19/20 01/19/20 01/19/20 Range/Units 14:53 14:53 14:53 WBC (3.8-10.6) k/uL RBC (3.80-5.40) m/uL Hgb (11.4-16.0) gm/dL Hct (34.0-46.0) % MCV (80.0-100.0) fL MCH (25.0-35.0) pg MCHC (31.0-37.0) g/dL RDW (11.5-15.5) % Plt Count (150-450) k/uL Neutrophils % % Lymphocytes % % Monocytes % % Eosinophils % % Basophils % % Neutrophils # (1.3-7.7) k/uL Lymphocytes # (1.0-4.8) k/uL Monocytes # (0-1.0) k/uL Eosinophils # (0-0.7) k/uL Basophils # (0-0.2) k/uL Macrocytosis D-Dimer (<0.60) mg/L FEU Sodium (137-145) mmol/L Potassium (3.5-5.1) mmol/L Chloride (98-107) mmol/L Carbon Dioxide (22-30) mmol/L Anion Gap mmol/L BUN (7-17) mg/dL Creatinine (0.52-1.04) mg/dL Est GFR (CKD-EPI)AfAm (>60 ml/min/1.73 sqM) Est GFR (CKD-EPI)NonAf (>60 ml/min/1.73 sqM) Glucose (74-99) mg/dL Calcium (8.4-10.2) mg/dL Magnesium (1.6-2.3) mg/dL Total Bilirubin (0.2-1.3) mg/dL AST (14-36) U/L ALT (4-34) U/L Alkaline Phosphatase (38-126) U/L Creatine Kinase (30-135) U/L Troponin I <0.012 (0.000-0.034) ng/mL Total Protein (6.3-8.2) g/dL Albumin (3.5-5.0) g/dL TSH (0.465-4.680) mIU/L Urine Color Yellow Urine Appearance Clear (Clear) Urine pH 5.5 (5.0-8.0) Ur Specific Goessel 1.023 (1.001-1.035) Urine Protein 1+ H (Negative) Urine Glucose (UA) Negative (Negative) Urine Ketones 2+ H (Negative) Urine Blood Negative (Negative) Urine Nitrite Negative (Negative) Urine Bilirubin Negative (Negative) Urine Urobilinogen <2.0 (<2.0) mg/dL Ur Leukocyte Esterase Negative (Negative) Urine RBC 1 (0-5) /hpf Ur Squamous Epith Cells 1 (0-4) /hpf Urine Mucus Few H (None) /hpf Urine HCG, Qual Not Detected (Not Detectd) - Radiology Data Radiology results: report reviewed (I did review the imaging and report no acute findings.), image reviewed Disposition Clinical Impression: Hypertension, Hypomagnesemia, Alcohol abuse, Alcohol withdrawal, Dehydration Disposition: HOME SELF-CARE Condition: Good Instructions (If sedation given, give patient instructions): Heart Healthy Diet (ED), Hypertension (ED), Hypomagnesemia (ED), Alcohol Withdrawal (ED), Dehydration (ED) Prescriptions: cloNIDine HCL [Catapres] 0.1 mg PO BID #14 tab chlordiazePOXIDE HCl [Librium] 20 mg PO TID 3 Days #18 capsule chlordiazePOXIDE HCl [Librium] 10 mg PO TID 3 Days #9 capsule chlordiazePOXIDE HCl [Librium] 25 mg PO TID 3 Days #9 capsule chlordiazePOXIDE HCl [Librium] 5 mg PO TID 3 Days #9 cap Magnesium 200 mg PO AC-BID #14 tablet Is patient prescribed a controlled substance at d/c from ED?: Yes When asked, does pt state using other controlled substances?: No If prescribed controlled substance>3 days was MAPS reviewed?: No Referrals: Woo Lee MD [Primary Care Provider] - 1-2 days
[2020-01-19 15:16] LABS: Basophils # (A) 0.1 k/uL (0-0.2); Basophils % (A) 1 %; Eosinophils % (A) 0 %; HCT 42.6 % (34.0-46.0); HGB 13.8 gm/dL (11.4-16.0); Lymphocytes # (A) 0.6 k/uL (1.0-4.8); Lymphocytes % (A) 6 %; MCH 33.2 pg (25.0-35.0); MCHC 32.4 g/dL (31.0-37.0); MCV 102.3 fL (80.0-100.0); Macrocytosis Slight; Mean Platelet Volume 8.6; Monocytes # (A) 0.3 k/uL (0-1.0); Monocytes % (A) 3 %; Neutrophils # (A) 9.3 k/uL (1.3-7.7); Neutrophils % (A) 89 %; Platelet Count 283 k/uL (150-450); RBC 4.16 m/uL (3.80-5.40); WBC 10.5 k/uL (3.8-10.6)
[2020-01-19 15:17] LABS: Appearance,Urine Clear (Clear); Bilirubin,Urine Negative (Negative); Blood,Urine Negative (Negative); Color,Urine Yellow; Glucose,Urine (UA) Negative (Negative); Ketones,Urine 2+ (Negative); Leukocyte Esterase,Urine Negative (Negative); Mucus,Urine Few /hpf; Nitrite,Urine Negative (Negative); PH, Urine 5.5 (5.0-8.0); Protein,Urine 1+ (Negative); RBC,Urine 1 /hpf (0-5); Specific Gravity,Urine 1.023 (1.001-1.035); Squamous Epithelial Cell,Urine 1 /hpf (0-4); Urobilinogen,Urine <2.0 mg/dL (<2.0)
[2020-01-19 15:27] LABS: ALT 137 U/L (4-34); AST 297 U/L (14-36); African American GFR (CKD) >90 (>60 ml/min/1.73 sqM); Albumin 4.5 g/dL (3.5-5.0); Alkaline Phosphatase 93 U/L (38-126); Anion Gap 16 mmol/L; Blood Urea Nitrogen 9 mg/dL (7-17); Calcium 9.4 mg/dL (8.4-10.2); Carbon Dioxide 19 mmol/L (22-30); Chloride 104 mmol/L (98-107); Creatine Kinase 96 U/L (30-135); Glucose 89 mg/dL (74-99); Magnesium 1.4 mg/dL (1.6-2.3); Non-African American GFR(CKD) >90 (>60 ml/min/1.73 sqM); Potassium 3.9 mmol/L (3.5-5.1); Sodium 139 mmol/L (137-145); Total Bilirubin 0.8 mg/dL (0.2-1.3); Total Protein 7.5 g/dL (6.3-8.2)
--- NOTE | 2020-01-19 15:30 | XR ---
EXAMINATION TYPE: XR chest 2V DATE OF EXAM: 01/19/2020 COMPARISON: Chest x-ray May 17, 2019. HISTORY: History of hypertension presents with tachycardia. TECHNIQUE: Frontal and lateral views of the chest are obtained. FINDINGS: Overlying EKG leads redemonstrated. There is no suspicious new focal air space opacity, pl eural effusion, or pneumothorax seen. The cardiac silhouette size remains within normal limits. Th e osseous structures are intact. IMPRESSION: No acute cardiopulmonary process. No significant change from prior.
[2020-01-19] MEDS ORDERED: MAGNESIUM SULFATE-D5W PMX 1 GM in DEXTROSE/WATER 1 100ML.BAG IVPB ONE (15:34)
[2020-01-19] MEDS ORDERED: SODIUM CHLORIDE 0.9% 1,000 ML IV STA (15:34)
[2020-01-19] MEDS ORDERED: hydrALAZINE HCL 20 MG/ML 1 ML VIAL IVP STA (15:47)
[2020-01-19 17:20] VITALS: PULSE 108
--- NOTE | 2020-01-19 17:32 | CT ---
EXAMINATION TYPE: CT angio chest DATE OF EXAM: 01/19/2020 COMPARISON: None HISTORY: high blood pressure, elevated d-dimer CT DLP: 507.3 mGycm Automated exposure control for dose reduction was used. CONTRAST: Performed with IV Contrast, patient injected with 100 mL of Isovue 370. There are 3-D post processed images. There is some fatty infiltration of the liver. Upper abdominal soft tissues are intact. There is no p leural effusion. There is no pericardial effusion. Heart size is fairly normal. There are no hilar ma sses. There is no mediastinal adenopathy. Thoracic aorta is intact. There is no aneurysm or dissectio n. The lungs are clear of consolidation. There is no evidence of a pulmonary mass. There is normal contrast opacification of the pulmonary arteries. There are no filling defects. The b stephany thorax is intact. IMPRESSION: No evidence of pulmonary embolism. Fatty infiltration of the liver.
[2020-01-19] MEDS ORDERED: LORazepam 2 MG/ML INJ IV STA (17:45)
[2020-01-19] MEDS ORDERED: LORazepam 1 MG TAB PO STA (19:05)
[2020-01-19 19:18] VITALS: BP 140/96
== END 2020-01-19 19:19 | disposition home or self-care (01) ==
LOC: EC 13:40
DX: I10 Essential (primary) hypertension (principal); E83.42 Hypomagnesemia; F10.239 Alcohol dependence with withdrawal, unspecified; E86.0 Dehydration; Z79.899 Other long term (current) drug therapy; Z87.891 Personal history of nicotine dependence
CPT/HCPCS: 36415; 93005; 85379; 80053; 84443; 82550; 83735; 84484; 85025; 81001; 81025; 71046; 71275; 99284; 96365; 96366; 96375 ×2; J2060; J0360; J3475; Q9967

== ENCOUNTER → 2020-04-18 | Outpatient (CLI) | payer OTHER ==
--- NOTE | 2020-04-18 12:49 | P.STRESS ---
- Stress Test Note Stress Test Results/Findings: Exam Performed: stress test Exam Date: 04/18/20 Reason for Exam: PALPITATIONS Height: 5 ft 4 in Weight: 77.111 kg Protocol: MATEO Stage: III Duration of Exercise: 8:22 Resting Heart Rate: 104 Resting Blood Pressure: 129/106 Maximum Achieved Heart Rate: 175 Maximum Achieved Blood Pressure: 160/104 85% PMHR: 151 100% PMHR: 178 METS: 10.1 Technologist Comment: Stress Test Results/Findings: Patient underwent exercise stress EKG with a Mateo protocol treadmill stress test. Patient exercised into Stage 3 for a total of 8 minutes 22 seconds reaching a total of 10.1 METS. Patient's maximum heart rate was 175 which represented 98 % age-predicted maximum heart rate. Stress EKG findings: At baseline patient's EKG showed normal sinus rhythm, normal axis, no significant ST or T wave abnormalities. At peak exercise, EKG showed no significant change from baseline with 1 isolated PVC. Conclusions: 1. Normal EKG response to exercise without evidence of inducible ischemia. 2. Good exercise capacity.
--- NOTE | 2020-04-18 13:00 | ECHOF ---
Referral Reason:Palpitations R00.2 MEASUREMENTS -------- HEIGHT: 162.6 cm WEIGHT: 77.1 kg BP: RVIDd: 2.8 cm (< 3.3) IVSd: 1.0 cm (0.6 - 1.1) LVIDd: 4.1 cm (3.9 - 5.3) LVPWd: 1.0 cm (0.6 - 1.1) IVSs: 1.6 cm LVIDs: 2.6 cm LVPWs: 1.7 cm LA Diam: 3.3 cm (2.7 - 3.8) LAESV Index (A-L): 12.11 ml/m Ao Diam: 3.3 cm (2.0 - 3.7) AV Cusp: 2.2 cm (1.5 - 2.6) MV EXCURSION: 12.451 mm (> 18.000) MV EF SLOPE: 108 mm/s (70 - 150) EPSS: 0.7 cm MV E Guillermo: 0.52 m/s MV DecT: 110 ms MV A Guillermo: 0.77 m/s MV E/A Ratio: 0.68 RAP: 5.00 mmHg RVSP: 21.98 mmHg FINDINGS -------- Sinus rhythm. This was a technically adequate study. The left ventricular size is normal. Left ventricular wall thickness is normal. Overall left vent ricular systolic function is normal with, an EF between 60 - 65 %. The right ventricle is normal in size. Normal LA size by volume 22+/-6 ml/m2. The right atrium is normal in size. Interatrial and interventricular septum intact. The aortic valve is trileaflet and appears structurally normal. There is trace mitral regurgitation. Trace tricuspid regurgitation present. Right ventricular systolic pressure is normal at < 35 mmHg. Trace/mild (physiologic) pulmonic regurgitation. The aortic root size is normal. Normal inferior vena cava with normal inspiratory collapse consistent with estimated right atrial pre ssure of 5 mmHg. There is no pericardial effusion. CONCLUSIONS -------- 1. The left ventricular size is normal. 2. Left ventricular wall thickness is normal. 3. Overall left ventricular systolic function is normal with, an EF between 60 - 65 %. 4. There is trace mitral regurgitation. 5. Trace tricuspid regurgitation present. 6. Trace/mild (physiologic) pulmonic regurgitation. 7. There is no pericardial effusion. ANSWERER: Raegan Sol RDCS
== END | disposition home or self-care (01) ==
LOC: RADNMMAIN 08:32
PROVIDERS: ATTEND Family Medicine
DX: I37.1 Nonrheumatic pulmonary valve insufficiency (principal); R00.2 Palpitations
CPT/HCPCS: 93017; 93306

== ENCOUNTER 2021-03-25 12:20 | Emergency (ER) | payer OTHER ==
[2021-03-25 12:34] VITALS: TEMP 98.9
[2021-03-25 13:06] LABS: Basophils % (A) 1 %; Eosinophils # (A) 0.1 k/uL (0-0.7); Eosinophils % (A) 1 %; HCT 39.5 % (34.0-46.0); HGB 12.9 gm/dL (11.4-16.0); Lymphocytes # (A) 0.8 k/uL (1.0-4.8); Lymphocytes % (A) 17 %; MCH 35.1 pg (25.0-35.0); MCHC 32.7 g/dL (31.0-37.0); MCV 107.5 fL (80.0-100.0); Macrocytosis Moderate; Monocytes # (A) 0.3 k/uL (0-1.0); Monocytes % (A) 7 %; Neutrophils # (A) 3.4 k/uL (1.3-7.7); Neutrophils % (A) 71 %; Platelet Count 188 k/uL (150-450); RBC 3.67 m/uL (3.80-5.40); RDW 14.4 % (11.5-15.5); WBC 4.8 k/uL (3.8-10.6)
[2021-03-25 13:25] LABS: Prothrombin Time 10.5 sec (9.0-12.0)
[2021-03-25 13:26] LABS: ALT 132 U/L (4-34); AST 184 U/L (14-36); African American GFR (CKD) >90 (>60 ml/min/1.73 sqM); Albumin 4.5 g/dL (3.5-5.0); Alkaline Phosphatase 67 U/L (38-126); Anion Gap 14 mmol/L; Blood Urea Nitrogen 8 mg/dL (7-17); Calcium 9.7 mg/dL (8.4-10.2); Carbon Dioxide 20 mmol/L (22-30); Chloride 101 mmol/L (98-107); Glucose 109 mg/dL (74-99); Magnesium 1.5 mg/dL (1.6-2.3); Non-African American GFR(CKD) >90 (>60 ml/min/1.73 sqM); Potassium 4.5 mmol/L (3.5-5.1); Sodium 135 mmol/L (137-145); Total Bilirubin 1.2 mg/dL (0.2-1.3); Total Protein 7.3 g/dL (6.3-8.2)
[2021-03-25 13:27] LABS: Partial Thromboplastin Time 21.5 sec (22.0-30.0)
--- NOTE | 2021-03-25 14:43 | XR ---
EXAMINATION TYPE: XR chest 2V DATE OF EXAM: 03/25/2021 COMPARISON: NONE TECHNIQUE: PA and lateral views submitted. HISTORY: Pain FINDINGS: The lungs are clear and there is no pneumothorax, pleural effusion, or focal pneumonia. Hypertrophi c and degenerative change of the spine. Heart size normal with no overt failure. IMPRESSION: 1. No acute process.
[2021-03-25 16:45] VITALS: RESP 16
[2021-03-25] MEDS ORDERED: MAGNESIUM OXIDE 400 MG TAB PO STA (18:27)
--- NOTE | 2021-03-25 18:29 | ED ---
Chest Pain HPI - General Chief Complaint: Chest Pain Stated Complaint: States high BP and chest pain Time Seen by Provider: 03/25/21 16:15 Source: patient, family Mode of arrival: wheelchair Limitations: no limitations - History of Present Illness Initial Comments: Patient complains of chest pain and paresthesias in the extremities. She has no shortness of breath. She has no nausea or vomiting. She has no lightheadedness or dizziness. Her symptoms began yesterday. Nothing makes her symptoms better or worse. She has taken no medicines for this. She wasn't doing anything when it began. She has no palpitations. She has no lightheadedness. She has no focal weakness. - Related Data Home Medications Medication Instructions Recorded Confirmed Omeprazole Magnesium [PriLOSEC OTC] 20 mg PO DAILY 01/19/20 03/25/21 ALPRAZolam [Xanax] 0.5 mg PO BID PRN 03/25/21 03/25/21 Cholecalciferol [Vitamin D3 (25 50 mcg PO DAILY 03/25/21 03/25/21 Mcg = 1000 Iu)] Magnesium 250 mg PO DAILY 03/25/21 03/25/21 Propranolol HCl [Inderal Xl] 80 mg PO DAILY 03/25/21 03/25/21 Vitamin B Complex 1 tab PO DAILY 03/25/21 03/25/21 Allergies Allergy/AdvReac Type Severity Reaction Status Date / Time No Known Allergies Allergy Verified 03/25/21 17:19 Review of Systems ROS Statement: Those systems with pertinent positive or pertinent negative responses have been documented in the HPI. ROS Other: All systems not noted in ROS Statement are negative. EKG Findings - EKG Comments: EKG Findings:: Twelve-lead EKG shows ventricular rate 70 bpm, normal VA interval and QRS complexes, no ST elevation or depression, interpreted by me as normal sinus rhythm. Past Medical History Past Medical History: Hypertension History of Any Multi-Drug Resistant Organisms: None Reported Past Surgical History: Tubal Ligation Additional Past Surgical History / Comment(s): tubal ligation Past Anesthesia/Blood Transfusion Reactions: No Reported Reaction Past Psychological History: No Psychological Hx Reported Smoking Status: Former smoker Past Alcohol Use History: Occasional Past Drug Use History: None Reported - Past Family History Father Family Medical History: Cancer Additional Family Medical History / Comment(s): Father of lung cancer. He was a [place] . Mother Family Medical History: No Reported History Additional Family Medical History / Comment(s): Mother is healthy General Exam Limitations: no limitations Course Vital Signs 03/25/21 03/25/21 12:31 16:42 Temperature 98.9 F Pulse Rate 77 65 Respiratory 18 16 Rate Blood Pressure 154/111 153/107 O2 Sat by Pulse 96 97 Oximetry Chest Pain MDM - Core Measures AMI Core Measures Followed: Yes - MDM Patient presents with chest pain and paresthesias. Her magnesium is a little low, and transaminases are elevated, however there is no evidence of any acute emergency requiring hospital admission. I gave her an oral dose of magnesium. She feels better and is stable for discharge. Disposition Clinical Impression: Chest pain, Hypomagnesemia Disposition: HOME SELF-CARE Condition: Good Instructions (If sedation given, give patient instructions): Chest Pain (ED) Is patient prescribed a controlled substance at d/c from ED?: No Referrals: Alex Lee MD [Primary Care Provider] - 1-2 days
[2021-03-25 19:03] VITALS: BP 156/114; PULSE 72
== END 2021-03-25 19:07 | disposition home or self-care (01) ==
LOC: EC 12:20
DX: R07.9 Chest pain, unspecified (principal); E83.42 Hypomagnesemia; I10 Essential (primary) hypertension; Z98.51 Tubal ligation status; Z87.891 Personal history of nicotine dependence
CPT/HCPCS: 36415; 71046; 80053; 83735; 84484; 85025; 85610; 85730; 93005; 99285

== ENCOUNTER → 2021-07-26 | Outpatient (CLI) | payer OTHER ==
--- NOTE | 2021-07-26 09:12 | US ---
EXAMINATION TYPE: US abdomen complete DATE OF EXAM: 07/26/2021 COMPARISON: Limited abdominal ultrasound May 17, 2019 CLINICAL HISTORY: R74.01 Elevated liver enzy mes. Abnormal labs. EXAM MEASUREMENTS: Liver Length: 17.3 cm Gallbladder Wall: 0.2 cm CBD: 0.5 cm Spleen: 8.3 x 3.3 cm Right Kidney: 9.7 x 5.9 x 6.1 cm Left Kidney: 8.1 x 4.7 x 5.4 cm Pancreas: Tail obscured by overlying bowel gas Liver: Increased attenuation, decreased visualization of vessels suggestive of fatty infiltrate Gallbladder: Internal echoes seen with gallbladder neck. Evidence for sonographic Syed's sign: No CBD: wnl Spleen: wnl Right Kidney: No hydronephrosis or masses seen Left Kidney: No hydronephrosis or masses seen Upper IVC: wnl Abd Aorta: wnl Probable fatty infiltration of liver, and sludge seen in gallbladder neck. The visualized liver redemonstrated heterogeneously hyperechoic. Evaluation for focal masses suboptim al due to the heterogeneity. No new surrounding ascites. The intrahepatic portion of the IVC and visu alized abdominal aorta are within normal limits. There is no evidence of cholelithiasis. Common ami e duct is unremarkable. The visualized portions of the pancreas are homogenous. The spleen is unrem arkable. Kidneys are symmetric and free of hydronephrosis. No renal lesions are seen. IMPRESSION: Heterogeneous hyperechoic appearance of liver favors diffuse fatty infiltration. Products of underlying hepatocellular disease is not excluded. No significant change from prior ultrasound.
== END | disposition home or self-care (01) ==
LOC: RADUSWWP 07:35
PROVIDERS: ATTEND Internal Medicine Gastroenterology
DX: K76.89 Other specified diseases of liver (principal)
CPT/HCPCS: 76700

== ENCOUNTER → 2021-08-01 | Outpatient (CLI) | payer OTHER ==
[2021-08-01 23:25] LABS: Albumin 4.1 g/dL (3.8-4.9); Albumin/Globulin Ratio 1.86 (1.60-3.17); Bilirubin, Conjugated 0.24 mg/dL (0.20-0.40); Bilirubin,Unconjugated 0.25 mg/dL (0.20-1.00); Globulin 2.2 g/dL (1.6-3.3); Total Bilirubin 0.5 mg/dL (0.30-1.20); Total Protein 6.3 g/dL (6.2-8.2)
[2021-08-01 23:34] LABS: Protein, Total 6.3 g/dL (6.2-8.2)
[2021-08-01 23:41] LABS: Ceruloplasmin 28.3 mg/dL (20.0-60.0); Hepatitis C IgG Antibody Nonreactive (Nonreactive)
[2021-08-01 23:47] LABS: Hepatitis B Surface AB- Quant 3.5 mIU/mL; Hepatitis B Surface Antibody Nonreactive (Nonreactive)
[2021-08-02 13:02] LABS: Albumin 3.73 g/dL (3.80-4.90)
== END | disposition home or self-care (01) ==
LOC: LABWHC1 13:33
PROVIDERS: ATTEND Nurse Practitioner Family
DX: R74.01 Elevation of levels of liver transaminase levels (principal)
CPT/HCPCS: 36415; 80076; 82103; 82390; 83516; 84165; 86038; 86706; 86803

== ENCOUNTER 2022-05-09 15:08 | Inpatient (IN) | payer OTHER ==
[2022-05-09] MEDS ORDERED: SODIUM CHLORIDE 0.9% 1,000 ML IV STA (16:05)
[2022-05-09] MEDS ORDERED: LORazepam 0.5 MG TAB PO PRN (16:29)
[2022-05-09] MEDS ORDERED: LORazepam 1 MG TAB PO PRN (16:29)
[2022-05-09] MEDS ORDERED: 1: MVI, ADULT NO.4 WITH VIT K 10 ML, THIAMINE 100 MG, FOLIC ACID 1 MG in SODIUM CHLORIDE IV SCH ×4 (16:30)
[2022-05-09] MEDS ORDERED: ONDANSETRON 4 MG/2 ML VIAL IVP STA (16:32)
[2022-05-09] MEDS ORDERED: cloNIDine HCL 0.1 MG TAB PO STA (16:32)
[2022-05-09] MEDS ORDERED: SODIUM CHLORIDE 0.9% 1,000 ML with THIAMINE 100 MG, FOLIC ACID 1 MG IV ONE ×3 (17:00)
[2022-05-09] MEDS: LORazepam 1 MG TAB PO PRN ×2 (17:49→20:04)
[2022-05-09 18:11] LABS: ALT 56 U/L (4-34); AST 150 U/L (14-36); African American GFR (CKD) >90 (>60 ml/min/1.73 sqM); Albumin 3.5 g/dL (3.5-5.0); Alcohol <10 mg/dL; Alkaline Phosphatase 72 U/L (38-126); Anion Gap 8 mmol/L; Blood Urea Nitrogen 5 mg/dL (7-17); Calcium 8.1 mg/dL (8.4-10.2); Carbon Dioxide 27 mmol/L (22-30); Chloride 101 mmol/L (98-107); Glucose 98 mg/dL (74-99); Non-African American GFR(CKD) >90 (>60 ml/min/1.73 sqM); Potassium 3.5 mmol/L (3.5-5.1); Sodium 136 mmol/L (137-145); Total Bilirubin 1.4 mg/dL (0.2-1.3); Total Protein 6.2 g/dL (6.3-8.2)
[2022-05-09] MEDS ORDERED: MAGNESIUM SULFATE-D5W PMX 1 GM in DEXTROSE/WATER 1 100ML.BAG IVPB STA (18:15)
[2022-05-09] MEDS ORDERED: MAGNESIUM SULFATE-D5W PMX 1 GM in DEXTROSE/WATER 1 100ML.BAG IVPB ONE (18:15)
[2022-05-09 18:20] LABS: Basophils % (A) 1 %; Eosinophils % (A) 0 %; HCT 30.6 % (34.0-46.0); HGB 10.7 gm/dL (11.4-16.0); Lymphocytes # (A) 0.9 k/uL (1.0-4.8); Lymphocytes % (A) 20 %; MCH 36.6 pg (25.0-35.0); MCHC 35.1 g/dL (31.0-37.0); MCV 104.2 fL (80.0-100.0); Macrocytosis Slight; Mean Platelet Volume 10.4; Monocytes # (A) 0.3 k/uL (0-1.0); Monocytes % (A) 6 %; Neutrophils # (A) 3.2 k/uL (1.3-7.7); Neutrophils % (A) 70 %; Platelet Count 176 k/uL (150-450); RBC 2.94 m/uL (3.80-5.40); RDW 14.3 % (11.5-15.5); WBC 4.6 k/uL (3.8-10.6)
[2022-05-09] MEDS ORDERED: ASPIRIN 325 MG TAB PO STA (19:12)
[2022-05-09] MEDS ORDERED: NALOXONE 0.4 MG/ML 1 ML VIAL IV PRN (19:16)
[2022-05-09] MEDS ORDERED: FLUTICASONE 50MCG/SPRAY NASAL 16GM EA NOSTRIL PRN (19:17)
[2022-05-09] MEDS ORDERED: busPIRone HCl 5 MG TAB PO PRN (19:17)
--- NOTE | 2022-05-09 19:18 | ED ---
Dizziness HPI - General Chief Complaint: Dizziness Stated Complaint: dizziness Time Seen by Provider: 05/09/22 16:08 Source: EMS Mode of arrival: EMS Limitations: no limitations - History of Present Illness Initial Comments: Patient is a 42-year-old female who presents to the emergency department with a chief complaint of chest pain. Patient states pain started at 10 AM today. Describes it as a consistent pressure and intermittent aching in the middle of her chest. Patient cannot quantify how long these episodes last. They are associated with nausea and dizziness as if patient is going to fall over. She denies fever, chills, shortness of breath, palpitations, abdominal pain, vomiting. Does admit to daily alcohol use for the past 2-3 years including a fifth of liquor a day. Last drink was yesterday. Patient is eager to quit. Feels that she is in alcohol withdrawal. She has never had withdrawal hallucinations or seizures. Patient has history of hypertension. She takes lisinopril daily. She took her medication this morning. Denies family history of cardiac disease. Denies tobacco use however admits to vaping. - Related Data Home Medications Medication Instructions Recorded Confirmed ALPRAZolam [Xanax] 0.5 mg PO BID PRN 03/25/21 05/09/22 Fluticasone Nasal [employer] [Flonase 1 spray EA NOSTRIL DAILY PRN 05/09/22 05/09/22 Nasal [employer]] Omeprazole 20 mg PO DAILY 05/09/22 05/09/22 Propranolol HCl [Propranolol HCl 120 mg PO DAILY 05/09/22 05/09/22 ER] busPIRone HCl [Buspar] 5 mg PO BID PRN 05/09/22 05/09/22 Allergies Allergy/AdvReac Type Severity Reaction Status Date / Time No Known Allergies Allergy Verified 03/25/21 17:19 Review of Systems ROS Statement: Those systems with pertinent positive or pertinent negative responses have been documented in the HPI. ROS Other: All systems not noted in ROS Statement are negative. Past Medical History Past Medical History: Hypertension History of Any Multi-Drug Resistant Organisms: None Reported Past Surgical History: Tubal Ligation Additional Past Surgical History / Comment(s): tubal ligation Past Anesthesia/Blood Transfusion Reactions: No Reported Reaction Past Psychological History: No Psychological Hx Reported Smoking Status: Former smoker Past Alcohol Use History: Occasional Past Drug Use History: None Reported - Past Family History Father Family Medical History: Cancer Additional Family Medical History / Comment(s): Father of lung cancer. He was a [place] . Mother Family Medical History: No Reported History Additional Family Medical History / Comment(s): Mother is healthy General Exam Limitations: no limitations General appearance: alert, in no apparent distress Head exam: Present: atraumatic, normocephalic, normal inspection Eye exam: Present: normal appearance, PERRL, EOMI. Absent: scleral icterus, conjunctival injection, periorbital swelling Respiratory exam: Present: normal lung sounds bilaterally. Absent: respiratory distress, wheezes, rales, rhonchi, stridor Cardiovascular Exam: Present: normal rhythm, bradycardia, normal heart sounds. Absent: regular rate, systolic murmur, diastolic murmur, rubs, gallop, clicks Extremities exam: Present: other (Bilateral hand tremors) Neurological exam: Present: alert, oriented X3, CN II-XII intact Psychiatric exam: Present: normal affect, normal mood Skin exam: Present: warm, dry, intact, normal color. Absent: rash Course Vital Signs 05/09/22 05/09/22 05/09/22 15:58 17:42 19:46 Temperature 99.4 F Pulse Rate 76 84 74 Respiratory 16 20 18 Rate Blood Pressure 158/114 146/105 123/93 O2 Sat by Pulse 99 98 96 Oximetry Medical Decision Making - Medical Decision Making Was pt. sent in by a medical professional or institution? No Did you speak to anyone other than the patient for history? No Did you review nursing and triage notes? Yes, and I agree. Symptoms consistent with nursing and triage notes. Were old charts reviewed? Yes, patient had cardiology evaluation a couple years ago where stress test and echocardiogram were normal. Patient states that this time she was experiencing chest pain that resolved on its own. Differential Diagnosis? Stable Angina, Unstable Angina, STEMI, NSTEMI Aortic Dissection, Pneumothorax, Musculoskeletal, Esophageal Spasm GERD, this is not meant to be an all-inclusive list. EKG interpreted by me (3pts min.)? Yes. Sinus bradycardia, T-wave inversion in lead V3 otherwise no ST segment abnormalities. Ventricular rate 55, MN interval 122, QRS duration 90, QTc 470 X-rays interpreted by me (1pt min.)? Yes, chest x-ray negative for acute cardiopulmonary process. CT interpreted by me (1pt min.)? NA U/S interpreted by me (1pt. min.)? NA What testing was considered but not performed? (CT, X-rays, U/S, labs)? Why? NA What meds were considered but not given? Why? NA Did you discuss the management of the patient with other professionals? Yes, I discussed case with Dr. Goddard. Did you reconcile home meds? Yes Was smoking cessation discussed for >3mins.? I discussed smoking cessation for greater than 3 minutes. The risk of smoking were discussed with the patient including but not limited to risks of cancer, stroke, coronary artery disease and COPD. Also discussed with patient were multiple methods of quitting smoking. Lastly we discussed the financial cost of smoking. Was critical care preformed (if so, how long)? No Were there social determinants of health that impacted care today? How? (Homelessness, low income, unemployed, alcoholism, drug addiction, transportation, low edu. Level, literacy, decrease access to med. care, fci, rehab)? Yes, alcoholism Was there de-escalation of care discussed even if they declined? (Discuss DNR or withdrawal of care, Hospice)? No What co-morbidities impacted this encounter? (DM, HTN, Smoking, COPD, CAD, Cancer, CVA, Hep., AIDS, mental health diagnosis, sleep apnea, morbid obesity)? HTN, alcohol use disorder, smoking Was patient admitted / discharged? This is a 42-year-old female admitted with chest pain. Patient is in alcohol withdrawal.Blood pressure 158/114, pulse 76. Cardiac monitoring and CIWA protocol initiated. EKG shows normal sinus rhythm with new T-wave inversions in V3. Troponin within normal limits. Magnesium very low at 1.0. This was replenished. Banana bag and Ativan given. Blood pressure improved after catapress. Patient to be admitted for serial troponins and alcohol withdrawal. Discussed with Dr. Goddard who accepts admission. Undiagnosed new problem with uncertain prognosis? No Drug Therapy requiring intensive monitoring for toxicity (Heparin, Nitro, Insulin, Cardizem)? No Were any procedures done? No Diagnosis/symptom? Chest pain Acute, or Chronic, or Acute on Chronic? Acute Uncomplicated (without systemic symptoms) or Complicated (systemic symptoms)? NA Side effects of treatment? NA Exacerbation, Progression, or Severe Exacerbation] NA Poses a threat to life or bodily function? Yes Diagnosis/symptom? Alcohol withdrawal Acute, or Chronic, or Acute on Chronic? Acute Uncomplicated (without systemic symptoms) or Complicated (systemic symptoms)? Complicated Side effects of treatment? No Exacerbation, Progression, or Severe Exacerbation] NA Poses a threat to life or bodily function? Yes Dr. Spencer is my attending. - Lab Data Result diagrams: 05/09/22 17:38 05/09/22 17:38 Lab Results 05/09/22 05/09/22 05/09/22 Range/Units 17:38 17:38 17:38 WBC 4.6 (3.8-10.6) k/uL RBC 2.94 L (3.80-5.40) m/uL Hgb 10.7 L (11.4-16.0) gm/dL Hct 30.6 L (34.0-46.0) % MCV 104.2 H (80.0-100.0) fL MCH 36.6 H (25.0-35.0) pg MCHC 35.1 (31.0-37.0) g/dL RDW 14.3 (11.5-15.5) % Plt Count 176 (150-450) k/uL MPV 10.4 Neutrophils % 70 % Lymphocytes % 20 % Monocytes % 6 % Eosinophils % 0 % Basophils % 1 % Neutrophils # 3.2 (1.3-7.7) k/uL Lymphocytes # 0.9 L (1.0-4.8) k/uL Monocytes # 0.3 (0-1.0) k/uL Eosinophils # 0.0 (0-0.7) k/uL Basophils # 0.0 (0-0.2) k/uL Macrocytosis Slight Sodium 136 L (137-145) mmol/L Potassium 3.5 (3.5-5.1) mmol/L Chloride 101 (98-107) mmol/L Carbon Dioxide 27 (22-30) mmol/L Anion Gap 8 mmol/L BUN 5 L (7-17) mg/dL Creatinine 0.54 (0.52-1.04) mg/dL Est GFR (CKD-EPI)AfAm >90 (>60 ml/min/1.73 sqM) Est GFR (CKD-EPI)NonAf >90 (>60 ml/min/1.73 sqM) Glucose 98 (74-99) mg/dL Calcium 8.1 L (8.4-10.2) mg/dL Magnesium 1.0 L (1.6-2.3) mg/dL Total Bilirubin 1.4 H (0.2-1.3) mg/dL AST 150 H (14-36) U/L ALT 56 H (4-34) U/L Alkaline Phosphatase 72 (38-126) U/L Troponin I <0.012 (0.000-0.034) ng/mL Total Protein 6.2 L (6.3-8.2) g/dL Albumin 3.5 (3.5-5.0) g/dL Serum Alcohol <10 mg/dL Disposition Clinical Impression: Alcohol withdrawal, Chest pain Disposition: ADMITTED IP TO THIS HOSP Condition: Stable
[2022-05-09] MEDS: SODIUM CHLORIDE 0.9% 1,000 ML IV SCH (19:57)
[2022-05-09] MEDS: PANTOPRAZOLE 40 MG TABLET PO SCH (19:59)
--- NOTE | 2022-05-09 20:22 | XR ---
EXAMINATION TYPE: XR chest 2V DATE OF EXAM: 05/09/2022 7:38 PM COMPARISON: Chest radiographs from 05/25/2020 TECHNIQUE: XR chest 2V Frontal and lateral views of the chest. CLINICAL INDICATION:Female, 42 years old with history of chest pain; FINDINGS: Lungs/Pleura: There is no evidence of pleural effusion, focal consolidation, or pneumothorax. Pulmonary vascularity: Unremarkable. Heart/mediastinum: Cardiomediastinal silhouette is unremarkable. Musculoskeletal: No acute osseous pathology. IMPRESSION: No acute cardiopulmonary disease/process.
--- NOTE | 2022-05-10 00:39 | P.HPIM ---
History of Present Illness H&P Date: 05/09/22 The patient is a 42-year-old female with a PMH of EtOH abuse who presents to the emergency room with complaints of paresthesias, chest pain, and tremors. Patient reports that shortly after COVID-19 lockdown's, the patient started drinking alcohol heavily. He reports drinking a fifth of vodka daily for the past 2-1/2 years. States that she has been experiencing [id number] numbness and tingling over the past several months and that earlier today she developed substernal pressure-like chest discomfort, 6 out of 10, constant, nonradiating, with no alleviating or exacerbating features, which improved after a few hours spontaneously. Patient was pain-free at the time of interview. The pain was nonpleuritic. The patient denied any history of such pain in the past. States that her last drink was roughly 24 hours ago. Denied history of DTs or alcohol withdrawal seizures. The patient is very interested in seeking further help for alcohol cessation. The case was discussed in detail with the ED provider. Laboratory evaluation in the emergency room was remarkable for troponin less than 0.012, serum alcohol level less than 10, AST 150, ALT 56, magnesium 1.0, hemoglobin 10.7, and MCV 104.2. EKG had revealed sinus bradycardia at 55 bpm with T-wave inversion in precordial leads V1 to V3 as reviewed by me. Chest x- ray was unremarkable. Review of systems: Pertinent positives and negatives as discussed in HPI, a complete review of systems was performed and all other systems are negative. Physical examination: General: non toxic, no distress, appears at stated age, normal weight Derm: no unusual rashes/lesions, warm Head: atraumatic, normocephalic, symmetric Eyes: EOMI, no lid lag, anicteric sclera, pupils equal round reactive to light ENT: Nose and ears atraumatic Neck: No cervical lymphadenopathy, trachea midline, supple Mouth: no lip lesion, mucus membranes moist Cardiovascular: S1S2 reg, no murmur, positive dorsalis pedis pulse bilateral, no edema Lungs: CTA bilateral, no rhonchi, no rales, no accessory muscle use Abdominal: soft, nontender to palpation, no guarding Ext: muscle strength 5 out of 5 in all 4 extremities grossly, no gross muscle atrophy, no contractures, Neuro: CN II-XI grossly intact, no gross focal neuro deficits, mild outstretched hand tremor Psych: Alert, oriented, appropriate affect Assessment/plan Chest pain, rule out ACS -Cardiology consulted -Continue cardiac monitoring -Agree with continuing aspirin -Hold off on Statin in setting of abnormal LFTs -Trend troponin Alcohol abuse, impending withdrawal -Strongly advise patient on importance of cessation -CIWA Protocol -Initiate thiamine -Monitor electrolytes and replace as needed -C/w IVFs Severe hypomagnesemia -Will replace and monitor Macrocytosis -Suspect secondary to ongoing EtOH abuse -Check B12 and folate levels DVT prophylaxis -Heparin subcu The patient is admitted with an anticipated greater than 2 midnight stay for evaluation of chest pain. CODE STATUS: Full Code Discussed with: Patient Anticipated discharge date: 05/11/[address]: Home Past Medical History Past Medical History: Hypertension History of Any Multi-Drug Resistant Organisms: None Reported Past Surgical History: Tubal Ligation Additional Past Surgical History / Comment(s): tubal ligation Past Anesthesia/Blood Transfusion Reactions: No Reported Reaction Past Psychological History: No Psychological Hx Reported Smoking Status: Former smoker Past Alcohol Use History: Occasional Past Drug Use History: None Reported - Past Family History Father Family Medical History: Cancer Additional Family Medical History / Comment(s): Father of lung cancer. He was a [place] . Mother Family Medical History: No Reported History Additional Family Medical History / Comment(s): Mother is healthy Medications and Allergies Home Medications Medication Instructions Recorded Confirmed Type ALPRAZolam [Xanax] 0.5 mg PO BID PRN 03/25/21 05/09/22 History Fluticasone Nasal [employer] [Flonase 1 spray EA NOSTRIL DAILY PRN 05/09/22 05/09/22 History Nasal [employer]] Omeprazole 20 mg PO DAILY 05/09/22 05/09/22 History Propranolol HCl [Propranolol HCl 120 mg PO DAILY 05/09/22 05/09/22 History ER] busPIRone HCl [Buspar] 5 mg PO BID PRN 05/09/22 05/09/22 History Allergies Allergy/AdvReac Type Severity Reaction Status Date / Time No Known Allergies Allergy Verified 03/25/21 17:19 Physical Exam Vitals: Vital Signs Temp Pulse Resp BP Pulse Ox 05/09/22 19:46 74 18 123/93 96 05/09/22 17:42 84 20 146/105 98 05/09/22 15:58 99.4 F 76 16 158/114 99 Intake and Output 05/09/22 05/09/22 05/09/22 06:59 14:59 22:59 Other: Weight 68.039 kg Results CBC & Chem 7: 05/09/22 17:38 05/09/22 17:38 Labs: Abnormal Lab Results - Last 24 Hours (Table) 05/09/22 05/09/22 Range/Units 17:38 17:38 RBC 2.94 L (3.80-5.40) m/uL Hgb 10.7 L (11.4-16.0) gm/dL Hct 30.6 L (34.0-46.0) % MCV 104.2 H (80.0-100.0) fL MCH 36.6 H (25.0-35.0) pg Lymphocytes # 0.9 L (1.0-4.8) k/uL Sodium 136 L (137-145) mmol/L BUN 5 L (7-17) mg/dL Calcium 8.1 L (8.4-10.2) mg/dL Magnesium 1.0 L (1.6-2.3) mg/dL Total Bilirubin 1.4 H (0.2-1.3) mg/dL AST 150 H (14-36) U/L ALT 56 H (4-34) U/L Total Protein 6.2 L (6.3-8.2) g/dL
[2022-05-10] MEDS: LORazepam 1 MG TAB PO PRN ×3 (01:05→20:03)
[2022-05-10 03:00] LABS: Appearance,Urine Clear (Clear); Bilirubin,Urine Negative (Negative); Blood,Urine Small (Negative); Color,Urine Yellow; Glucose,Urine (UA) Negative (Negative); Hyaline Casts,Urine 1 /lpf (0-2); Ketones,Urine 1+ (Negative); Leukocyte Esterase,Urine Negative (Negative); Mucus,Urine Few /hpf; Nitrite,Urine Negative (Negative); Protein,Urine Negative (Negative); RBC,Urine 7 /hpf (0-5); Specific Gravity,Urine 1.013 (1.001-1.035); Squamous Epithelial Cell,Urine <1 /hpf (0-4); WBC,Urine 1 /hpf (0-5)
[2022-05-10 03:06] LABS: Amphetamine Screen,Urine Not Detected (NotDetected); Barbiturate Screen,Urine Not Detected (NotDetected); Benzodiazepines Screen,Urine Detected (NotDetected); Cocaine Screen,Urine Not Detected (NotDetected); Methadone Screen, Urine Not Detected (NotDetected); Opiate Screen,Urine Not Detected (NotDetected); Oxycodone Screen, Urine Not Detected (NotDetected); Phencyclidine Screen,Urine Not Detected (NotDetected); Tricyclic Antidepressant,Urine Not Detected (NotDetected); Urn Cannabinoid Scrn Not Detected (NotDetected)
[2022-05-10] MEDS: PANTOPRAZOLE 40 MG TABLET PO SCH (06:14)
[2022-05-10] MEDS: SODIUM CHLORIDE 0.9% 1,000 ML IV SCH ×3 (06:15→20:32)
[2022-05-10] MEDS: HEPARIN SODIUM,PORCINE/PF 5,000 UNIT/0.5 ML SYRINGE SQ SCH ×3 (08:26→23:33)
[2022-05-10] MEDS: THIAMINE 100 MG TAB PO SCH (08:28)
[2022-05-10] MEDS: PROPRANOLOL LA 60 MG CAP.SA.24H PO SCH (09:58)
[2022-05-10 11:17] LABS: HCT 26.5 % (37.2-46.3); HGB 8.7 g/dL (12.0-15.0); MCH 35.1 pg (27.0-32.0); MCHC 32.8 g/dL (32.0-37.0); MCV 106.9 fL (80.0-97.0); Mean Platelet Volume 11.6 fL (9.5-12.2); NRBC Per 100 WBC 0 /100 WBCS (0.0-0.0); Platelet Count 132 X 10*3/uL (140-440); RBC 2.48 X 10*6/uL (4.10-5.20); RDW 14.2 % (11.5-14.5); WBC 3.66 X 10*3/uL (4.50-10.00)
[2022-05-10 11:27] LABS: African American GFR (CKD) 129.2 (60.0-200.0); Anion Gap 13.3 mmol/L (10.00-18.00); BUN/Creat Ratio 8.36 Ratio (12.00-20.00); Blood Urea Nitrogen 4.9 mg/dL (9.0-27.0); Calcium 7.7 mg/dL (8.7-10.3); Carbon Dioxide 26.7 mmol/L (20.0-27.5); Non-African American GFR(CKD) 111.5 (60.0-200.0); Potassium 3.1 mmol/L (3.5-5.5)
[2022-05-10] MEDS ORDERED: CALCIUM CARBONATE 500 MG CHEWABLE PO PRN (17:32)
--- NOTE | 2022-05-10 18:53 | P.PN ---
Subjective Progress Note Date: 05/10/22 Hospital course: Patient is a very pleasant 42-year-old female with a PMH of EtOH abuse who presents to the emergency room with complaints of paresthesias, chest pain, and tremors. Patient reports that shortly after COVID-19 lockdown's, the patient started drinking alcohol heavily. He reports drinking a fifth of vodka daily for the past 2-1/2 years. States that she has been experiencing [id number]-ilc-vrhq numbness and tingling over the past several months and that earlier today she developed substernal pressure-like chest discomfort, 6 out of 10, constant, nonradiating, with no alleviating or exacerbating features, which improved after a few hours spontaneously. Patient was pain-free at the time of interview. The pain was nonpleuritic. The patient denied any history of such pain in the past. States that her last drink was roughly 24 hours ago. Denied history of DTs or alcohol withdrawal seizures but states she has not had one single day free from drinking alcohol in over 2 years.. The patient is very interested in seeking further help for alcohol cessation and is admitted under our services at this time. Physical exam: Patient was seen and fully evaluated at bedside this morning. She has had a total of 5 mg of Ativan overnight. She currently reports feeling mildly anxious but reports previously reported chest pain has completely subsided. She currently denies having any headache, lightheadedness, dizziness, chest pain, palpitations, shortness of breath, or any other complaints at this time. Morning labs reviewed. Patient with pancytopenia with WBC count 3.66, hemoglobin 8.7, and platelet count of 132. Vital signs reviewed and stable. General: Nontoxic, no distress and appears stated age. Derm: Skin warm and dry, normal coloration for ethnicity. Head: Atraumatic, normocephalic and symmetric. Eyes: EOMs intact, no lid lag, and anicteric sclera Mouth: no lip lesions, mucus membranes moist Cardiovascular: regular rate and rhythm with normal S1S2, no murmur, positive posterior tibial pulses bilaterally, and cap refill < 2 seconds. Lungs: Respirations even, regular, and unlabored on room air. Lungs CTA bilaterally, no rhonchi, no rales, no wheezing, and no accessory muscle usage. Abdominal: soft, nontender to palpation, no guarding, no appreciable organomegaly Ext: ROM intact. No gross muscle atrophy, no edema, no contractures Neuro: Speech clear, face symmetrical and CN II-XII grossly intact with no noted focal neuro deficits Psych: Alert and oriented to person, place, time, and situation. Appropriate and pleasant affect. Assessment and plan of care Chest pain, rule out acute coronary event -Cardiology consult, appreciate further recommendations -Telemetry monitoring -Trend troponins -Cardiac diet -Lipid profile with a.m. labs. Alcohol abuse an active alcoholic Transaminitis with hyperbilirubinemia secondary to alcoholic hepatitis Pancytopenia secondary to chronic alcohol abuse -[facility] Protocol with symptom triggered medication management with benzodiazepines. -Banana bag 1 dose followed by continuous IV hydration. -Thiamine 100 mg twice a day -Multivitamin daily -Folate 1 mg daily -Seizure, fall, aspiration, and elopement precautions in place. -Urine drug screen -Continued close monitoring of electrolytes and replace as needed. -Telemetry monitoring. CODE STATUS: Full code DVT prophylaxis: Heparin Discussed with: Patient and RN Anticipated discharge date: Clinical course to determine Anticipated discharge place: Home A total of 33 minutes was spent on the care of this complex patient more than 50% of the time was spent in counseling and care coordination. Objective - Vital Signs Vital signs: Vital Signs Temp 98.9 F 05/10/22 07:19 Pulse 75 05/10/22 07:19 Resp 16 05/10/22 07:19 BP 110/66 05/10/22 07:19 Pulse Ox 96 05/10/22 07:19 FiO2 Intake & Output 05/09/22 05/10/22 05/10/22 18:59 06:59 18:59 Weight 68.039 kg 68.039 kg Other: # Voids 2 1 - Labs CBC & Chem 7: 05/10/22 06:18 05/10/22 06:18 Labs: Abnormal Lab Results - Last 24 Hours (Table) 05/09/22 05/09/22 05/10/22 Range/Units 17:38 17:38 02:32 RBC 2.94 L (3.80-5.40) m/uL Hgb 10.7 L (11.4-16.0) gm/dL Hct 30.6 L (34.0-46.0) % MCV 104.2 H (80.0-100.0) fL MCH 36.6 H (25.0-35.0) pg Lymphocytes # 0.9 L (1.0-4.8) k/uL Sodium 136 L (137-145) mmol/L BUN 5 L (7-17) mg/dL Calcium 8.1 L (8.4-10.2) mg/dL Magnesium 1.0 L (1.6-2.3) mg/dL Total Bilirubin 1.4 H (0.2-1.3) mg/dL AST 150 H (14-36) U/L ALT 56 H (4-34) U/L Total Protein 6.2 L (6.3-8.2) g/dL Urine Ketones 1+ H (Negative) Urine Blood Small H (Negative) Urine RBC 7 H (0-5) /hpf Urine Mucus Few H (None) /hpf U Benzodiazepines Scrn Detected H (NotDetected)
[2022-05-11] MEDS: LORazepam 1 MG TAB PO PRN ×5 (02:05→12:45)
[2022-05-11] MEDS: SODIUM CHLORIDE 0.9% 1,000 ML IV SCH ×3 (05:55→18:08)
[2022-05-11] MEDS: HEPARIN SODIUM,PORCINE/PF 5,000 UNIT/0.5 ML SYRINGE SQ SCH ×3 (07:38→23:48)
[2022-05-11] MEDS: PANTOPRAZOLE 40 MG TABLET PO SCH (08:17)
[2022-05-11] MEDS: THIAMINE 100 MG TAB PO SCH (08:17)
[2022-05-11] MEDS: PROPRANOLOL LA 60 MG CAP.SA.24H PO SCH (08:18)
[2022-05-11] MEDS ORDERED: HALOPERIDOL LACTATE 5 MG/ML 1 ML VIAL IM PRN (12:35)
[2022-05-11] MEDS ORDERED: diphenhydrAMINE 50 MG/ML 1 ML VIAL IM STA (12:35)
[2022-05-11] MEDS ORDERED: LORazepam 2 MG/ML INJ IM STA (12:35)
[2022-05-11] MEDS ORDERED: LORazepam 2 MG/ML INJ IV PRN (13:13)
[2022-05-11] MEDS: LORazepam 2 MG/ML INJ IV PRN ×4 (14:55→16:33)
[2022-05-11 15:17] LABS: HCT 29.4 % (34.0-46.0); MCH 36.1 pg (25.0-35.0); MCHC 33.9 g/dL (31.0-37.0); MCV 106.4 fL (80.0-100.0); Macrocytosis Moderate; Mean Platelet Volume 10.3; Platelet Count 154 k/uL (150-450); RBC 2.76 m/uL (3.80-5.40); RDW 14.2 % (11.5-15.5); WBC 4.7 k/uL (3.8-10.6)
[2022-05-11 15:27] LABS: ALT 39 U/L (4-34); AST 73 U/L (14-36); African American GFR (CKD) >90 (>60 ml/min/1.73 sqM); Albumin 3.6 g/dL (3.5-5.0); Albumin/Globulin Ratio 1.3; Alkaline Phosphatase 65 U/L (38-126); Anion Gap 5 mmol/L; Blood Urea Nitrogen 3 mg/dL (7-17); Calcium 8.1 mg/dL (8.4-10.2); Carbon Dioxide 28 mmol/L (22-30); Chloride 105 mmol/L (98-107); Globulin 2.7 g/dL; Glucose 109 mg/dL (74-99); Magnesium 1.1 mg/dL (1.6-2.3); Non-African American GFR(CKD) >90 (>60 ml/min/1.73 sqM); Potassium 3.2 mmol/L (3.5-5.1); Sodium 138 mmol/L (137-145); Total Bilirubin 0.8 mg/dL (0.2-1.3); Total Protein 6.3 g/dL (6.3-8.2)
[2022-05-11] MEDS ORDERED: POTASSIUM CHLORIDE ER 20 MEQ TAB.ER PO STA (16:09)
[2022-05-11] MEDS ORDERED: diazePAM 5 MG TAB PO SCH (16:15)
--- NOTE | 2022-05-11 17:10 | P.PN ---
Subjective Progress Note Date: 05/11/22 Hospital course: Patient is a very pleasant 42-year-old female with a PMH of EtOH abuse who presents to the emergency room with complaints of paresthesias, chest pain, and tremors. Patient reports that shortly after COVID-19 lockdown's, the patient started drinking alcohol heavily. He reports drinking a fifth of vodka daily for the past 2-1/2 years. States that she has been experiencing [id number] numbness and tingling over the past several months and that earlier today she developed substernal pressure-like chest discomfort, 6 out of 10, constant, nonradiating, with no alleviating or exacerbating features, which improved after a few hours spontaneously. Patient was pain-free at the time of interview. The pain was nonpleuritic. The patient denied any history of such pain in the past. States that her last drink was roughly 24 hours ago. Denied history of DTs or alcohol withdrawal seizures but states she has not had one single day free from drinking alcohol in over 2 years.. The patient is very interested in seeking further help for alcohol cessation and is admitted under our services at this time. Physical exam: Patient was seen and fully evaluated at bedside this morning. She has had a total of 8 mg of Ativan overnight.this morning patient appears more agitated and requiring additional doses of Ativan. Patient having visual hallucinations and is currently attempting to take pictures of animals that she is seeing outside of her hospital window. Morning labs pending.patient given an additional dose of Haldol/Ativan/Benadryl she is currently very agitated and has pulled out her IV. oral meds to be discontinued and patient being started on IV meds and will place order for scheduled valium. Vital signs reviewed and stable. General: Nontoxic, no distress and appears stated age. Derm: Skin warm and dry, normal coloration for ethnicity. Head: Atraumatic, normocephalic and symmetric. Eyes: EOMs intact, no lid lag, and anicteric sclera Mouth: no lip lesions, mucus membranes moist Cardiovascular: regular rate and rhythm with normal S1S2, no murmur, positive posterior tibial pulses bilaterally, and cap refill < 2 seconds. Lungs: Respirations even, regular, and unlabored on room air. Lungs CTA bilaterally, no rhonchi, no rales, no wheezing, and no accessory muscle usage. Abdominal: soft, nontender to palpation, no guarding, no appreciable organomegaly Ext: ROM intact. No gross muscle atrophy, no edema, no contractures Neuro: Speech clear, face symmetrical and CN II-XII grossly intact with no noted focal neuro deficits Psych: Alert and oriented to person, place, time, and situation. Appropriate and pleasant affect. Assessment and plan of care Chest pain, rule out acute coronary event -Cardiology consult, appreciate further recommendations -Telemetry monitoring -Trend troponins -Cardiac diet -Lipid profile with a.m. labs. Alcohol abuse an active alcoholic Transaminitis with hyperbilirubinemia secondary to alcoholic hepatitis Pancytopenia secondary to chronic alcohol abuse Hypomagnesemia Hypokalemia -CIWA Protocol with symptom triggered medication management with benzodiazepines. -Banana bag 1 dose followed by continuous IV hydration. -Thiamine 100 mg twice a day -Multivitamin daily -Folate 1 mg daily -Seizure, fall, aspiration, and elopement precautions in place. -Urine drug screen -Continued close monitoring of electrolytes and replace as needed. -Telemetry monitoring. CODE STATUS: Full code DVT prophylaxis: Heparin Discussed with: Patient and RN Anticipated discharge date: Clinical course to determine Anticipated discharge place: Home A total of 33 minutes was spent on the care of this complex patient more than 50% of the time was spent in counseling and care coordination. Patient seen and examined at bedside. Currently resting comfortably. She required multiple doses of Ativan throughout the day due to worsening CIWA, agitation, hallucinations. She also received Haldol and Benadryl. Case discussed with Dr. Mg. She will be moving to the ICU. Likely would benefit from Precedex drip if she becomes agitated again. Objective - Vital Signs Vital signs: Vital Signs Temp 98.1 F 05/11/22 09:08 Pulse 71 05/11/22 09:08 Resp 17 05/11/22 09:08 BP 146/93 05/11/22 09:08 Pulse Ox 97 05/11/22 09:08 FiO2 Intake & Output 05/10/22 05/11/22 05/11/22 18:59 06:59 18:59 Intake Total 1000 Balance 1000 Intake: Oral 1000 Other: # Voids 3 5 - Labs CBC & Chem 7: 05/11/22 15:01 05/11/22 15:01 Labs: Abnormal Lab Results - Last 24 Hours (Table) 12/31/22 12/31/22 Range/Units 06:18 06:18 WBC 3.66 L (4.50-10.00) X 10*3/uL RBC 2.48 L (4.10-5.20) X 10*6/uL Hgb 8.7 L (12.0-15.0) g/dL Hct 26.5 L (37.2-46.3) % MCV 106.9 H (80.0-97.0) fL MCH 35.1 H (27.0-32.0) pg Plt Count 132 L (140-440) X 10*3/uL Potassium 3.1 L (3.5-5.5) mmol/L BUN 4.9 L (9.0-27.0) mg/dL BUN/Creatinine Ratio 8.36 L (12.00-20.00) Ratio Calcium 7.7 L (8.7-10.3) mg/dL
--- NOTE | 2022-05-11 17:15 | P.PN ---
Progress Note - Text Progress Note Date: 05/11/22 Despite multiple attempts of reorienting patient in controlling alcohol withdrawal with current CIWA protocol along with additional medications, this is not successful. Nursing staff reports patient continues to be agitated. Patient was placed in medical restraints to maintain her safety. Sitter remains at bedside. PT has had a total of 18 mg of Ativan over a 10 hour period and RN reporting CIWA score only increasing. Called and discussed case with Dr. Mg, pt being transferred to ICU at this time. Current CIWA 25.
[2022-05-11 17:51] LABS: Glucose,Whole Blood 98 mg/dL (70-110)
[2022-05-11] MEDS: MAGNESIUM SULFATE-D5W PMX 1 GM in DEXTROSE/WATER 1 100ML.BAG IVPB SCH ×4 (18:07→22:30)
[2022-05-11] MEDS: DEXMEDETOMIDINE/0.9% NACL(PMX) 400 MCG in EMPTY BAG 1 BAG IV SCH (18:31)
[2022-05-11] MEDS ORDERED: Potassium Replacement Protocol 1 EACH MISC MISCELLANE PRN (19:28)
[2022-05-11] MEDS: POTASSIUM CHLORIDE 10 MEQ in WATER FOR INJECTION 1 100ML.BAG IVPB SCH ×3 (21:50→23:51)
[2022-05-12] MEDS: POTASSIUM CHLORIDE 10 MEQ in WATER FOR INJECTION 1 100ML.BAG IVPB SCH (00:55)
[2022-05-12 04:27] LABS: ALT 35 U/L (4-34); AST 64 U/L (14-36); African American GFR (CKD) >90 (>60 ml/min/1.73 sqM); Albumin 2.8 g/dL (3.5-5.0); Alkaline Phosphatase 49 U/L (38-126); Anion Gap 3 mmol/L; Blood Urea Nitrogen <2 mg/dL (7-17); Calcium 7.2 mg/dL (8.4-10.2); Carbon Dioxide 27 mmol/L (22-30); Chloride 105 mmol/L (98-107); Glucose 82 mg/dL (74-99); Magnesium 2.4 mg/dL (1.6-2.3); Non-African American GFR(CKD) >90 (>60 ml/min/1.73 sqM); Sodium 135 mmol/L (137-145); Total Bilirubin 0.6 mg/dL (0.2-1.3); Total Protein 5.1 g/dL (6.3-8.2)
[2022-05-12 04:37] LABS: Basophils % (A) 0 %; Eosinophils # (A) 0.1 k/uL (0-0.7); Eosinophils % (A) 3 %; HCT 27.3 % (34.0-46.0); HGB 9.1 gm/dL (11.4-16.0); Hypochromasia Slight; Lymphocytes # (A) 0.9 k/uL (1.0-4.8); Lymphocytes % (A) 25 %; MCH 36.4 pg (25.0-35.0); MCHC 33.5 g/dL (31.0-37.0); MCV 108.8 fL (80.0-100.0); Macrocytosis Marked; Monocytes # (A) 0.3 k/uL (0-1.0); Monocytes % (A) 8 %; Neutrophils # (A) 2.3 k/uL (1.3-7.7); Neutrophils % (A) 61 %; Platelet Count 131 k/uL (150-450); RBC 2.51 m/uL (3.80-5.40); RDW 13.6 % (11.5-15.5); WBC 3.8 k/uL (3.8-10.6)
[2022-05-12 04:43] LABS: Potassium 2.7 mmol/L (3.5-5.1)
[2022-05-12] MEDS: POTASSIUM BICARBONATE/CIT AC 20 MEQ TABLET.EFF NG-TUBE SCH ×5 (05:11→16:20)
[2022-05-12] MEDS: SODIUM CHLORIDE 0.9% 1,000 ML IV SCH ×3 (05:12→23:36)
[2022-05-12] MEDS: PANTOPRAZOLE 40 MG TABLET PO SCH (07:00)
[2022-05-12] MEDS: HEPARIN SODIUM,PORCINE/PF 5,000 UNIT/0.5 ML SYRINGE SQ SCH ×3 (09:26→23:04)
[2022-05-12] MEDS: FOLIC ACID 1 MG TAB PO SCH (09:26)
[2022-05-12] MEDS: THIAMINE 100 MG TAB PO SCH (09:26)
--- NOTE | 2022-05-12 12:33 | P.CNPUL ---
History of Present Illness Consult date: 05/12/22 Requesting physician: Mamie Amor Reason for consult: other (ICU management) Chief complaint: altered mental status; ETOH withdrawal History of present illness: I'm seeing this patient today on 05/12/22 in the ICU. Patient was originally admitted on 05/09/2022 to general medical floor with a chief complaint of nonradiating chest pressure, tremors, and paresthesias. She is a daily alcohol user of 1/5 of vodka per day for the last 2-3 years. Her last drink was 05/08/2022. She denies hallucinations, seizures, further chest pain. Her only known medical history is primary hypertension which is being treated with lisinopril. the patient was transferred to the ICU yesterday with recurring CIWAs greater than 30. Patient did receive 17 mg of Ativan per CIWA protocol, with Valium 10 mg by mouth 3 times a day, and when necessary Haldol injections. Patient required 4- point restraints to prevent self harming behaviors.currently, however, she is laying comfortably in bed on a Precedex infusion of 0.2 mcgs/kg/hour. she is also receiving vitamin B1. And folic acid supplementation. her mentation appears to be back to baseline, we'll work on weaning off the Precedex. vital signs are stable on 2 L nasal cannula. she has some slight sinus bradycardia with a heart rate in the high 50s. CBC from today was stable with a WBC count 3.8, hemoglobin 9.1, hematocrit 27.3, platelets 131,000. her anemia was microcytic. BMP showed some hypokalemia, that was supplemented per protocol. BMP showed a sodium 135, potassium of 2.7, chloride of 105, serum CO2 27, BUN less than 2, creatinine 0.44, glucose 82. Vitamin B12 was 332.chest x-ray from 05/09/2022 showed no acute pulmonary process. Review of Systems REVIEW OF SYSTEMS: CONSTITUTIONAL: Denies any recent significant weight loss or weight gain. admits tremors. denies hallucinations, deliriums, seizures EYES: Denies change in vision. EARS, NOSE, MOUTH, THROAT: Denies headaches, denies sore throat. CARDIOVASCULAR: Denies chest pain, palpitations or syncopal episodes. RESPIRATORY: Denies shortness of breath, cough, congestion or hemoptysis. GASTROINTESTINAL: Denies change in appetite, denies abdominal pain GENITOURINARY: Denies hematuria, denies infections. MUSKULOSKELETAL: Denies pain, denies swelling. INTEGUMENTARY: Denies rash, denies eczema. NEUROLOGICAL: Denies recent memory loss, no recent seizure activity. PSYCHIATRIC: Denies anxiety, denies depression. HEMATOLOGIC/LYMPHATIC: Denies anemia, denies enlarged lymph nodes. Past Medical History Past Medical History: Hypertension History of Any Multi-Drug Resistant Organisms: None Reported Past Surgical History: Tubal Ligation Additional Past Surgical History / Comment(s): tubal ligation Past Anesthesia/Blood Transfusion Reactions: No Reported Reaction Past Psychological History: No Psychological Hx Reported Smoking Status: Former smoker Past Alcohol Use History: Occasional Past Drug Use History: None Reported - Past Family History Father Family Medical History: Cancer Additional Family Medical History / Comment(s): Father of lung cancer. He was a [place] . Mother Family Medical History: No Reported History Additional Family Medical History / Comment(s): Mother is healthy Medications and Allergies Home Medications Medication Instructions Recorded Confirmed Type ALPRAZolam [Xanax] 0.5 mg PO BID PRN 03/25/21 05/09/22 History Fluticasone Nasal [place] [Flonase 1 spray EA NOSTRIL DAILY PRN 05/09/22 05/09/22 History Nasal [place]] Omeprazole 20 mg PO DAILY 05/09/22 05/09/22 History Propranolol HCl [Propranolol HCl 120 mg PO DAILY 05/09/22 05/09/22 History ER] busPIRone HCl [Buspar] 5 mg PO BID PRN 05/09/22 05/09/22 History Allergies Allergy/AdvReac Type Severity Reaction Status Date / Time No Known Allergies Allergy Verified 03/25/21 17:19 Physical Exam Vitals: Vital Signs Temp Pulse Pulse Resp BP BP Pulse Ox 05/12/22 11:00 59 L 12 114/69 97 05/12/22 10:00 53 L 13 125/70 99 05/12/22 09:00 53 L 13 121/91 99 05/12/22 08:30 57 L 16 123/87 100 05/12/22 08:00 97.8 F 58 L 14 119/85 99 05/12/22 07:30 56 L 13 122/94 98 05/12/22 07:00 65 12 130/94 100 05/12/22 06:30 56 L 10 L 120/88 99 05/12/22 06:00 57 L 8 L 118/80 99 05/12/22 05:30 59 L 9 L 119/82 99 05/12/22 05:00 56 L 12 118/70 99 05/12/22 04:30 56 L 15 118/84 99 05/12/22 04:00 97.7 F 66 12 116/85 99 05/12/22 03:30 56 L 15 124/86 99 05/12/22 03:00 56 L 14 124/87 100 05/12/22 02:30 57 L 15 120/80 99 05/12/22 02:00 59 L 12 121/89 99 05/12/22 01:30 63 15 117/85 99 05/12/22 01:00 61 15 111/86 99 05/12/22 00:30 56 L 9 L 117/82 98 05/12/22 00:00 98 F 59 L 16 118/87 98 05/11/22 23:30 61 15 112/80 98 05/11/22 23:00 64 16 108/76 98 05/11/22 22:30 68 17 115/82 95 05/11/22 22:00 61 16 115/92 96 05/11/22 21:30 68 17 111/80 98 05/11/22 21:00 61 21 114/80 97 05/11/22 20:30 67 16 108/84 97 05/11/22 20:00 98.2 F 64 17 108/84 97 05/11/22 19:30 65 20 112/77 95 05/11/22 19:00 97.8 F 77 10 L 112/77 94 L 05/11/22 18:30 82 05/11/22 18:08 79 05/11/22 14:00 98.8 F 75 18 105/66 95 Intake and Output 05/11/22 05/12/22 05/12/22 22:59 06:59 14:59 Intake Total 500 1340 706.076 Output Total 400 950 Balance 500 940 -243.924 Intake: IV 500 1340 650 Magnesium Sulfate-D5w Pmx 400 1 gm In Dextrose/Water 1 100ml.bag @ 100 mls/hr IVPB Q1H [facility] Rx#: [id number] Potassium Chloride 10 meq 100 300 In Water For Injection 1 100ml.bag @ 100 mls/hr IVPB Q1HR [facility] Rx#: [id number] Sodium Chloride 0.9% 1, 1040 650 000 ml @ 130 mls/hr IV . Q7H42M [facility] Rx#:[id number] Intake, IV Titration 56.076 Amount Dexmedetomidine/0.9% NaCl 56.076 (Pmx) 400 mcg In Empty Bag 1 bag @ 0.2 MCG/KG/HR 3.402 mls/hr IV .Q24H [facility] Rx#:[id number] Output: Urine 400 950 Other: Voiding Method Diaper Bedside Commode # Voids 1 1 Weight 71 kg GENERAL EXAM: Alert, laying in bed, comfortable in no apparent distress. HEAD: Normocephalic. EYES: Normal reaction of pupils, equal size. NOSE: Clear with pink turbinates. THROAT: No erythema or exudates. NECK: No masses, no JVD. CHEST: No chest wall deformity. LUNGS: Equal air entry with no crackles, wheeze, rhonchi or dullness. .on 2 L nasal cannula CVS: S1 and S2 normal with no audible murmur, regular rhythm.sinus bradycardia heart rate 57 bpm ABDOMEN: No hepatosplenomegaly, normal bowel sounds, no guarding or rigidity. SPINE: No scoliosis or deformity SKIN: No rashes CENTRAL NERVOUS SYSTEM: No focal deficits, tone is normal in all 4 extremities.there are some tremors with extension. EXTREMITIES: There is no peripheral edema. No clubbing, no cyanosis. Peripheral pulses are intact. Results - Laboratory Findings CBC and BMP: 05/12/22 03:59 05/12/22 08:48 Abnormal lab findings: Abnormal Labs 05/09/22 05/09/22 05/10/22 17:38 17:38 02:32 WBC RBC 2.94 L Hgb 10.7 L Hct 30.6 L MCV 104.2 H MCH 36.6 H Plt Count Lymphocytes # 0.9 L Macrocytosis Sodium 136 L Potassium BUN 5 L Creatinine BUN/Creatinine Ratio Glucose Calcium 8.1 L Magnesium 1.0 L Total Bilirubin 1.4 H AST 150 H ALT 56 H Total Protein 6.2 L Albumin Urine Ketones 1+ H Urine Blood Small H Urine RBC 7 H Urine Mucus Few H U Benzodiazepines Scrn Detected H 05/10/22 05/10/22 05/11/22 06:18 06:18 15:01 WBC 3.66 L RBC 2.48 L 2.76 L Hgb 8.7 L 10.0 L Hct 26.5 L 29.4 L MCV 106.9 H 106.4 H MCH 35.1 H 36.1 H Plt Count 132 L Lymphocytes # Macrocytosis Sodium Potassium 3.1 L BUN 4.9 L Creatinine BUN/Creatinine Ratio 8.36 L Glucose Calcium 7.7 L Magnesium Total Bilirubin AST ALT Total Protein Albumin Urine Ketones Urine Blood Urine RBC Urine Mucus U Benzodiazepines Scrn 05/11/22 05/12/22 05/12/22 15:01 03:59 03:59 WBC RBC 2.51 L Hgb 9.1 L Hct 27.3 L MCV 108.8 H MCH 36.4 H Plt Count 131 L Lymphocytes # 0.9 L Macrocytosis Marked A Sodium 135 L Potassium 3.2 L 2.7 L* BUN 3 L <2 L Creatinine 0.44 L BUN/Creatinine Ratio Glucose 109 H Calcium 8.1 L 7.2 L Magnesium 1.1 L 2.4 H Total Bilirubin AST 73 H 64 H ALT 39 H 35 H Total Protein 5.1 L Albumin 2.8 L Urine Ketones Urine Blood Urine RBC Urine Mucus U Benzodiazepines Scrn - Diagnostic Findings Chest x-ray: image reviewed Assessment and Plan Assessment: chronic alcoholism Acute alcohol withdrawa lwith delirium tremors Hypokalemia Macrocytic anemia without acute blood loss primary hypertension Plan: patient's medications, labs, x-ray were reviewed continue Precedex infusion, may wean as tolerated Continue CIWA protocol seizure precautions Continue supplemental oxygen to maintain oxygen saturation greater than 92% Replace potassium per protocol we'll continue to follow in ICU I have personally seen and examined the patient, performed the documentation and the assessment and plan as written. Number of minutes spent on the visit: [ 20]. Time with Patient: Greater than 30
[2022-05-12] MEDS ORDERED: Potassium Replacement Protocol 1 EACH MISC MISCELLANE PRN ×2 (12:37→13:38)
[2022-05-12] MEDS ORDERED: POTASSIUM CHLORIDE ER 20 MEQ TAB.ER PO SCH (13:00)
[2022-05-12] MEDS: ACETAMINOPHEN TAB 325 MG TAB PO PRN (13:07)
[2022-05-12] MEDS: PROPRANOLOL LA 60 MG CAP.SA.24H PO SCH (14:37)
--- NOTE | 2022-05-12 15:11 | P.PN ---
Subjective Progress Note Date: 05/12/22 Patient is a very pleasant 42-year-old female with a PMH of EtOH abuse who presents to the emergency room with complaints of paresthesias, chest pain, and tremors. Patient reports that shortly after COVID-19 lockdown's, the patient started drinking alcohol heavily. He reports drinking a fifth of vodka daily for the past 2-1/2 years. States that she has been experiencing [id number] numbness and tingling over the past several months and that earlier today she developed substernal pressure-like chest discomfort, 6 out of 10, constant, nonradiating, with no alleviating or exacerbating features, which improved after a few hours spontaneously. Patient was pain-free at the time of interview. The pain was nonpleuritic. The patient denied any history of such pain in the past. States that her last drink was roughly 24 hours ago. Denied history of DTs or alcohol withdrawal seizures but states she has not had one single day free from drinking alcohol in over 2 years.. The patient is very interested in seeking further help for alcohol cessation and is admitted under our services at this time. Patient was transferred to ICU for worsening withdrawal symptoms and started on a Precedex drip. Patient was seen and examined this morning. No acute events overnight. Patient reports seeing to bees around her drink. She denies any chest pain, shortness breath or palpitations. No nausea or vomiting. No fever or chills. Precedex drip discontinued. Vital signs reviewed and stable. General: Nontoxic, no distress and appears stated age. Derm: Skin warm and dry, normal coloration for ethnicity. Head: Atraumatic, normocephalic and symmetric. Eyes: EOMs intact, no lid lag, and anicteric sclera Mouth: no lip lesions, mucus membranes moist Cardiovascular: regular rate and rhythm with normal S1S2, no murmur Lungs: Lungs CTA bilaterally, no rhonchi, no rales, no wheezing, and no acce ssory muscle usage. Ext: ROM intact. No gross muscle atrophy, no edema, no contractures Neuro: Speech clear, face symmetrical Psych: Alert and oriented to person, place, time, and situation. Appropriate and pleasant affect. #Alcohol abuse an active alcoholic #Transaminitis with hyperbilirubinemia secondary to alcoholic hepatitis #Pancytopenia secondary to chronic alcohol abuse Most recent CIWA 5 CIWA Protocol with symptom triggered medication management with benzodiazepines. Thiamine 100 mg twice a day Multivitamin daily Folate 1 mg daily Seizure, fall, aspiration, and elopement precautions in place Continued close monitoring of electrolytes and replace as needed Telemetry monitoring #Chest pain, rule out acute coronary event Troponins trended ACS ruled out. Likely related to EtOH withdrawal. #Hypokalemia Replaced. Repeat BMP tomorrow morning. Objective - Vital Signs Vital signs: Vital Signs Temp 97.8 F 05/12/22 08:00 Pulse 71 05/12/22 13:00 Resp 18 05/12/22 13:00 BP 113/87 05/12/22 13:00 Pulse Ox 100 05/12/22 13:00 FiO2 Intake & Output 05/11/22 05/12/22 05/12/22 18:59 06:59 18:59 Intake Total 1840 968.202 Output Total 400 950 Balance 1440 18.202 Weight 71 kg Intake: IV 1840 910 Magnesium Sulfate-D5w Pmx 400 1 gm In Dextrose/Water 1 100ml.bag @ 100 mls/hr IVPB Q1H [facility] Rx#: [id number] Potassium Chloride 10 meq 400 In Water For Injection 1 100ml.bag @ 100 mls/hr IVPB Q1HR [facility] Rx#: [id number] Sodium Chloride 0.9% 1, 1040 910 000 ml @ 130 mls/hr IV . Q7H42M [facility] Rx#:[id number] Intake, IV Titration 58.202 Amount Dexmedetomidine/0.9% NaCl 58.202 (Pmx) 400 mcg In Empty Bag 1 bag @ 0.2 MCG/KG/HR 3.402 mls/hr IV .Q24H [facility] Rx#:[id number] Output: Urine 400 950 Other: Voiding Method Bedside Commode # Voids 1 1 - Labs CBC & Chem 7: 05/12/22 03:59 05/12/22 08:48 Labs: Abnormal Lab Results - Last 24 Hours (Table) 05/11/22 05/11/22 05/12/22 Range/Units 15:01 15:01 03:59 RBC 2.76 L 2.51 L (3.80-5.40) m/uL Hgb 10.0 L 9.1 L (11.4-16.0) gm/dL Hct 29.4 L 27.3 L (34.0-46.0) % MCV 106.4 H 108.8 H (80.0-100.0) fL MCH 36.1 H 36.4 H (25.0-35.0) pg Plt Count 131 L (150-450) k/uL Lymphocytes # 0.9 L (1.0-4.8) k/uL Macrocytosis Marked A Sodium (137-145) mmol/L Potassium 3.2 L (3.5-5.1) mmol/L BUN 3 L (7-17) mg/dL Creatinine (0.52-1.04) mg/dL Glucose 109 H (74-99) mg/dL Calcium 8.1 L (8.4-10.2) mg/dL Magnesium 1.1 L (1.6-2.3) mg/dL AST 73 H (14-36) U/L ALT 39 H (4-34) U/L Total Protein (6.3-8.2) g/dL Albumin (3.5-5.0) g/dL 05/12/22 Range/Units 03:59 RBC (3.80-5.40) m/uL Hgb (11.4-16.0) gm/dL Hct (34.0-46.0) % MCV (80.0-100.0) fL MCH (25.0-35.0) pg Plt Count (150-450) k/uL Lymphocytes # (1.0-4.8) k/uL Macrocytosis Sodium 135 L (137-145) mmol/L Potassium 2.7 L* (3.5-5.1) mmol/L BUN <2 L (7-17) mg/dL Creatinine 0.44 L (0.52-1.04) mg/dL Glucose (74-99) mg/dL Calcium 7.2 L (8.4-10.2) mg/dL Magnesium 2.4 H (1.6-2.3) mg/dL AST 64 H (14-36) U/L ALT 35 H (4-34) U/L Total Protein 5.1 L (6.3-8.2) g/dL Albumin 2.8 L (3.5-5.0) g/dL
[2022-05-12] MEDS: LORazepam 2 MG/ML INJ IV PRN (16:17)
[2022-05-12] MEDS: DEXMEDETOMIDINE/0.9% NACL(PMX) 400 MCG in EMPTY BAG 1 BAG IV SCH (21:29)
[2022-05-13] MEDS ORDERED: MELATONIN 5 MG TABLET PO SCH (01:30)
[2022-05-13] MEDS: PANTOPRAZOLE 40 MG TABLET PO SCH (06:44)
[2022-05-13] MEDS: ACETAMINOPHEN TAB 325 MG TAB PO PRN (06:44)
[2022-05-13 07:14] LABS: Basophils % (A) 0 %; Eosinophils # (A) 0.1 k/uL (0-0.7); Eosinophils % (A) 2 %; HCT 27.7 % (34.0-46.0); HGB 9.1 gm/dL (11.4-16.0); Lymphocytes # (A) 1.1 k/uL (1.0-4.8); Lymphocytes % (A) 30 %; MCH 35.8 pg (25.0-35.0); MCHC 32.8 g/dL (31.0-37.0); Macrocytosis Marked; Mean Platelet Volume 10.4; Monocytes # (A) 0.3 k/uL (0-1.0); Monocytes % (A) 8 %; Neutrophils # (A) 2.1 k/uL (1.3-7.7); Neutrophils % (A) 56 %; Platelet Count 160 k/uL (150-450); RBC 2.54 m/uL (3.80-5.40); RDW 14.3 % (11.5-15.5); WBC 3.7 k/uL (3.8-10.6)
[2022-05-13 07:16] LABS: African American GFR (CKD) >90 (>60 ml/min/1.73 sqM); Anion Gap 2 mmol/L; Blood Urea Nitrogen <2 mg/dL (7-17); Calcium 7.5 mg/dL (8.4-10.2); Carbon Dioxide 30 mmol/L (22-30); Chloride 105 mmol/L (98-107); Glucose 78 mg/dL (74-99); Non-African American GFR(CKD) >90 (>60 ml/min/1.73 sqM); Potassium 3.4 mmol/L (3.5-5.1); Sodium 137 mmol/L (137-145)
[2022-05-13] MEDS ORDERED: POTASSIUM CHLORIDE ER 20 MEQ TAB.ER PO SCH ×2 (08:00)
[2022-05-13] MEDS: FOLIC ACID 1 MG TAB PO SCH (08:04)
[2022-05-13] MEDS: HEPARIN SODIUM,PORCINE/PF 5,000 UNIT/0.5 ML SYRINGE SQ SCH (08:04)
[2022-05-13] MEDS: THIAMINE 100 MG TAB PO SCH (08:04)
[2022-05-13] MEDS: PROPRANOLOL LA 60 MG CAP.SA.24H PO SCH (08:04)
[2022-05-13] MEDS ORDERED: POTASSIUM BICARBONATE/CIT AC 20 MEQ TABLET.EFF PO ONE (08:08)
[2022-05-13 08:19] VITALS: TEMP 97.4
[2022-05-13 10:14] VITALS: PULSE 80
--- NOTE | 2022-05-13 12:11 | P.PN ---
Subjective Progress Note Date: 05/13/22 Principal diagnosis: ETOH withdrawal I'm seeing this patient today on 05/12/22 in the ICU. Patient was originally admitted on 05/09/2022 to general medical floor with a chief complaint of nonradiating chest pressure, tremors, and paresthesias. She is a daily alcohol user of 1/5 of vodka per day for the last 2-3 years. Her last drink was 05/08/2022. She denies hallucinations, seizures, further chest pain. Her only known medical history is primary hypertension which is being treated with lisinopril. the patient was transferred to the ICU yesterday with recurring CIWAs greater than 30. Patient did receive 17 mg of Ativan per CIWA protocol, with Valium 10 mg by mouth 3 times a day, and when necessary Haldol injections. Patient required 4- point restraints to prevent self harming behaviors.currently, however, she is laying comfortably in bed on a Precedex infusion of 0.2 mcgs/kg/hour. she is also receiving vitamin B1. And folic acid supplementation. her mentation appears to be back to baseline, we'll work on weaning off the Precedex. vital signs are stable on 2 L nasal cannula. she has some slight sinus bradycardia with a heart rate in the high 50s. CBC from today was stable with a WBC count 3.8, hemoglobin 9.1, hematocrit 27.3, platelets 131,000. her anemia was microcytic. BMP showed some hypokalemia, that was supplemented per protocol. BMP showed a sodium 135, potassium of 2.7, chloride of 105, serum CO2 27, BUN less than 2, creatinine 0.44, glucose 82. Vitamin B12 was 332.chest x-ray from 05/09/2022 showed no acute pulmonary process. I'm reevaluating this patient today on 05/13/2022 in ICU. Patient is resting comfortably in bed, in no acute distress, on room air. Her mentation appears to be back to baseline, and she is only received 2 mg of Ativan in the last 24 hours. Last charted CIWA was 4. She remains on Precedex. No new Chest x-ray to review today. CBC from today continues to show a macrocytic anemia with a hemoglobin of 9.1, hematocrit 27.7, WBC count of 3.7, platelets 160,000. Patient's BMP is stable with a sodium 137 potassium of 3.4, chloride 105, serum CO2 of 30, BUN of 2, creatinine 0.53, glucose of 78.. Patient's potassium is being supplemented per protocol. No IV maintenance fluids infusing. Vital signs remain stable. Objective - Vital Signs Vital signs: Vital Signs Temp 97.4 F L 05/13/22 08:00 Pulse 80 05/13/22 10:00 Resp 20 05/13/22 10:00 BP 147/110 05/13/22 10:00 Pulse Ox 98 05/13/22 09:00 FiO2 Intake & Output 05/12/22 05/13/22 05/13/22 18:59 06:59 18:59 Intake Total 2438.202 500 Output Total 950 500 Balance 1488.202 0 Weight 73.7 kg Intake: IV 1300 Sodium Chloride 0.9% 1, 1300 000 ml @ 130 mls/hr IV . Q7H42M [facility] Rx#:[id number] Intake, IV Titration 58.202 Amount Dexmedetomidine/0.9% NaCl 58.202 (Pmx) 400 mcg In Empty Bag 1 bag @ 0.2 MCG/KG/HR 3.402 mls/hr IV .Q24H [facility] Rx#:[id number] Oral 1080 500 Output: Urine 950 500 Other: Voiding Method Bedside Commode Bedside Commode # Voids 1 1 1 # Bowel Movements 1 - Exam GENERAL EXAM: Alert, laying in bed, comfortable in no apparent distress. HEAD: Normocephalic. EYES: Normal reaction of pupils, equal size. NOSE: Clear with pink turbinates. THROAT: No erythema or exudates. NECK: No masses, no JVD. CHEST: No chest wall deformity. LUNGS: Equal air entry with no crackles, wheeze, rhonchi or dullness. .on room air CVS: S1 and S2 normal with no audible murmur, regular rhythm. normal sinus rhythm with a heart rate of 80 bpm ABDOMEN: No hepatosplenomegaly, normal bowel sounds, no guarding or rigidity. SPINE: No scoliosis or deformity SKIN: No rashes CENTRAL NERVOUS SYSTEM: No focal deficits, tone is normal in all 4 extremities. No tremors at rest. EXTREMITIES: There is no peripheral edema. No clubbing, no cyanosis. Peripheral pulses are intact. - Labs CBC & Chem 7: 05/13/22 06:25 05/13/22 06:25 Labs: Abnormal Lab Results - Last 24 Hours (Table) 05/13/22 05/13/22 Range/Units 06:25 06:25 WBC 3.7 L (3.8-10.6) k/uL RBC 2.54 L (3.80-5.40) m/uL Hgb 9.1 L (11.4-16.0) gm/dL Hct 27.7 L (34.0-46.0) % MCV 109.0 H (80.0-100.0) fL MCH 35.8 H (25.0-35.0) pg Macrocytosis Marked A Potassium 3.4 L (3.5-5.1) mmol/L BUN <2 L (7-17) mg/dL Calcium 7.5 L (8.4-10.2) mg/dL Assessment and Plan Assessment: chronic alcoholism Acute alcohol withdrawal with delirium tremors. Improving Hypokalemia. Being replaced per protocol Macrocytic anemia primary hypertension Plan: patient's medications, labs, x-ray were reviewed Continue CIWA protocol seizure precautions Replace potassium per protocol Patient is agreeable to continued ETOH cessation on discharge May transfer patient to general medical floor with telemetry I have personally seen and examined the patient, performed the documentation and the assessment and plan as written. Number of minutes spent on the visit: [ 10]. Time with Patient: Less than 30
[2022-05-13] MEDS: DEXMEDETOMIDINE/0.9% NACL(PMX) 400 MCG in EMPTY BAG 1 BAG IV SCH (12:18)
[2022-05-13 13:58] VITALS: RESP 16
[2022-05-13] MEDS ORDERED: amLODIPine 5 MG TAB PO SCH (14:00)
[2022-05-13 15:33] VITALS: BP 147/127
--- NOTE | 2022-05-13 15:36 | P.DS ---
Providers Date of admission: 05/09/22 19:17 Expected date of discharge: 05/13/22 Attending physician: Kristin Goddard MD Consults: 05/11/22 18:00 Consult Physician Routine Consulting Provider: Blair Mg Reason/Comments: ICU management Do you want consulting provider notified?: Yes, Notify in am Primary care physician: Alxe Antony [facility] Course: Patient is a very pleasant 42-year-old female with a PMH of EtOH abuse who presents to the emergency room with complaints of paresthesias, chest pain, and tremors. Patient reports that shortly after COVID-19 lockdown's, the patient started drinking alcohol heavily. He reports drinking a fifth of vodka daily for the past 2-1/2 years. States that she has been experiencing [id number] numbness and tingling over the past several months and that earlier today she developed substernal pressure-like chest discomfort, 6 out of 10, constant, nonradiating, with no alleviating or exacerbating features, which improved after a few hours spontaneously. Patient was pain-free at the time of interview. The pain was nonpleuritic. The patient denied any history of such pain in the past. States that her last drink was roughly 24 hours ago. Denied history of DTs or alcohol withdrawal seizures but states she has not had one single day free from drinking alcohol in over 2 years.. The patient is very interested in seeking further help for alcohol cessation and is admitted under our services at this time. Patient was transferred to ICU for worsening withdrawal symptoms and started on a Precedex drip. Precedex drip was discontinued on 05/12/2022. Her mentation considerably improved. Patient seen and examined on 05/13/2021. Patient reported no auditory or visual hallucinations. Patient had no complaints and is requesting to be discharged home. The last time Ativan was given was on May 12 at 5:43 PM. Patient is advised to refrain from drinking alcohol. She would like to follow- up with her PCP for referral to outpatient detox. Her blood pressure is 148/111. Patient reports well-controlled blood pressure at home. She'll be given 5 mg of amlodipine prior to discharge. Patient advised to keep a log of her blood pressure at home and to follow up with her PCP for further titration of medication. Pertinent studies include chest x-ray. Vital signs reviewed and stable. General: Nontoxic, no distress and appears stated age. Derm: Skin warm and dry, normal coloration for ethnicity. Head: Atraumatic, normocephalic and symmetric. Eyes: EOMs intact, no lid lag, and anicteric sclera Mouth: no lip lesions, mucus membranes moist Cardiovascular: regular rate and rhythm with normal S1S2, no murmur Lungs: Lungs CTA bilaterally, no rhonchi, no rales, no wheezing, and no accessory muscle usage. Ext: ROM intact. No gross muscle atrophy, no edema, no contractures Neuro: Speech clear, face symmetrical Psych: Alert and oriented to person, place, time, and situation. Appropriate and pleasant affect. Discharge Diagnosis: #Alcohol abuse an active alcoholic #Transaminitis with hyperbilirubinemia secondary to alcoholic hepatitis #Pancytopenia secondary to chronic alcohol abuse #Hypertension #Chest pain, rule out acute coronary event #Hypokalemia This complex discharge took 35 minutes complete. Patient Condition at Discharge: Stable Plan - Discharge Summary Discharge Rx Participant: Yes New Discharge Prescriptions: New Thiamine [Vitamin B-1] 100 mg PO DAILY tab amLODIPine [Norvasc] 5 mg PO DAILY #30 tab Folic Acid 1 mg PO DAILY tab Continue busPIRone HCl [Buspar] 5 mg PO BID PRN PRN Reason: Anxiety Propranolol HCl [Propranolol HCl ER] 120 mg PO DAILY Omeprazole 20 mg PO DAILY ALPRAZolam [Xanax] 0.5 mg PO BID PRN PRN Reason: Anxiety Fluticasone Nasal [place] [Flonase Nasal [place]] 1 spray EA NOSTRIL DAILY PRN PRN Reason: Allergy Symptoms Discharge Medication List ALPRAZolam [Xanax] 0.5 mg PO BID PRN 03/25/21 [History] Fluticasone Nasal [place] [Flonase Nasal [place]] 1 spray EA NOSTRIL DAILY PRN 05/09/22 [History] Omeprazole 20 mg PO DAILY 05/09/22 [History] Propranolol HCl [Propranolol HCl ER] 120 mg PO DAILY 05/09/22 [History] busPIRone HCl [Buspar] 5 mg PO BID PRN 05/09/22 [History] Folic Acid 1 mg PO DAILY tab 05/13/22 [Rx] Thiamine [Vitamin B-1] 100 mg PO DAILY tab 05/13/22 [Rx] amLODIPine [Norvasc] 5 mg PO DAILY #30 tab 05/13/22 [Rx] Follow up Appointment(s)/Referral(s): Alex Lee MD [Primary Care Provider] - 1-2 days Activity/Diet/Wound Care/Special Instructions: Please refrain from drinking alcohol. Discharge/Stand Alone Forms: AA Meetings [place], [facility], Outpatient Counseling, In Substance Abuse Facilities Discharge Disposition: HOME SELF-CARE
== END 2022-05-13 15:40 | disposition home or self-care (01) | DRG 897 ==
LOC: EC 15:08 → 4SSUR 19:17 → 2SICU 05-11 17:46
PROVIDERS: ADMIT Internal Medicine; ATTEND Internal Medicine
DX: F10.131 Alcohol abuse with withdrawal delirium (principal); D61.818 Other pancytopenia; E80.6 Other disorders of bilirubin metabolism; K70.10 Alcoholic hepatitis without ascites; R74.01 Elevation of levels of liver transaminase levels; I10 Essential (primary) hypertension; F17.290 Nicotine dependence, other tobacco product, uncomplicated; D50.9 Iron deficiency anemia, unspecified; D53.9 Nutritional anemia, unspecified; E87.6 Hypokalemia; R20.0 Anesthesia of skin; R20.2 Paresthesia of skin; R07.89 Other chest pain; R00.1 Bradycardia, unspecified; E83.42 Hypomagnesemia; D75.89 Other specified diseases of blood and blood-forming organs; Z71.41 Alcohol abuse counseling and surveillance of alcoholic; Z79.899 Other long term (current) drug therapy; Z78.1 Physical restraint status; Z71.6 Tobacco abuse counseling; Z28.310 Unvaccinated for COVID-19
CPT/HCPCS: 36415; 71046; 80048; 80053; 80306; 80320; 81001; 82607; 82747; 83735; 84132; 84484; 85025; 85027; 93005; 96365; 96366; 96368; 96375; 99285; 99406

== ENCOUNTER 2022-12-13 11:41 | Inpatient (IN) | payer OTHER ==
--- NOTE | 2022-12-13 12:39 | ED ---
General Adult HPI - General Chief complaint: Back Pain/Injury Stated complaint: back/hip pain Time Seen by Provider: 12/13/22 12:13 Source: patient, RN notes reviewed Mode of arrival: EMS Limitations: physical limitation - History of Present Illness Initial comments: 42-year-old female presents to the emergency department with chief complaint left-sided buttock pain x4 days. She states that her pulled on her leg and she has had pain in her hip since then. She states that it is worse with walking. She is unable to bear weight on the left leg. She was brought in by EMS and was given morphine on the way in. She reports some tingling down the left leg. Denies loss of bowel or bladder function, saddle anesthesia, fever. - Related Data Home Medications Medication Instructions Recorded Confirmed ALPRAZolam [Xanax] 0.5 mg PO BID PRN 03/25/21 12/13/22 Fluticasone Nasal [place] [Flonase 1 spray EA NOSTRIL DAILY PRN 05/09/22 12/13/22 Nasal [place]] Omeprazole 20 mg PO DAILY 05/09/22 12/13/22 Propranolol HCl [Propranolol HCl 120 mg PO DAILY 05/09/22 12/13/22 ER] Cholecalciferol [Vitamin D3 (25 50 mcg PO DAILY 12/13/22 12/13/22 Mcg = 1000 Iu)] Diclofenac Sodium [Voltaren] 25 mg PO BID PRN 12/13/22 12/13/22 Ferrous Sulfate [Feosol] 325 mg PO DAILY 12/13/22 12/13/22 Super B Complex 1 tab PO DAILY 12/13/22 12/13/22 methocarbamoL [Methocarbamol] 750 mg PO Q4H PRN 12/13/22 12/13/22 methylPREDNISolone Dose Pack See Taper PO DIRECTED 12/13/22 12/13/22 [Medrol Dose Pack] Previous Rx's Medication Instructions Recorded amLODIPine [Norvasc] 5 mg PO DAILY #30 tab 05/13/22 Allergies Allergy/AdvReac Type Severity Reaction Status Date / Time No Known Allergies Allergy Verified 12/13/22 17:21 Review of Systems ROS Statement: Those systems with pertinent positive or pertinent negative responses have been documented in the HPI. ROS Other: All systems not noted in ROS Statement are negative. Past Medical History Past Medical History: Hypertension History of Any Multi-Drug Resistant Organisms: None Reported Past Surgical History: Tubal Ligation Additional Past Surgical History / Comment(s): tubal ligation, D and C a blation(2022) Past Anesthesia/Blood Transfusion Reactions: No Reported Reaction Past Psychological History: No Psychological Hx Reported Smoking Status: Former smoker Past Alcohol Use History: None Reported Past Drug Use History: None Reported - Past Family History Father Family Medical History: Cancer Additional Family Medical History / Comment(s): Father of lung cancer. He was a [place] . Mother Family Medical History: No Reported History Additional Family Medical History / Comment(s): Mother is healthy General Exam Limitations: physical limitation General appearance: alert, in no apparent distress Head exam: Present: atraumatic, normocephalic, normal inspection Eye exam: Present: normal appearance, PERRL, EOMI. Absent: scleral icterus, conjunctival injection, periorbital swelling ENT exam: Present: normal exam, mucous membranes moist Neck exam: Present: normal inspection. Absent: tenderness, meningismus, lymphadenopathy Respiratory exam: Present: normal lung sounds bilaterally. Absent: respiratory distress, wheezes, rales, rhonchi, stridor Cardiovascular Exam: Present: regular rate, normal rhythm, normal heart sounds. Absent: systolic murmur, diastolic murmur, rubs, gallop, clicks GI/Abdominal exam: Present: soft, normal bowel sounds. Absent: distended, tend erness, guarding, rebound, rigid Extremities exam: Present: tenderness (left sided pelvis), normal capillary refill. Absent: calf tenderness Back exam: Present: normal inspection Neurological exam: Present: alert, oriented X3 Psychiatric exam: Present: normal affect, normal mood Skin exam: Present: warm, dry, intact, normal color. Absent: rash Course Vital Signs 12/13/22 12/13/22 12/13/22 12:01 13:43 15:29 Temperature 98.1 F Pulse Rate 62 52 L 57 L Respiratory 18 20 18 Rate Blood Pressure 102/69 108/74 97/62 O2 Sat by Pulse 98 100 96 Oximetry 12/13/22 12/13/22 17:28 18:21 Temperature 97.9 F Pulse Rate 64 53 L Respiratory 18 16 Rate Blood Pressure 125/90 105/78 O2 Sat by Pulse 97 95 Oximetry Medical Decision Making - Medical Decision Making Was pt. sent in by a medical professional or institution ([facility], [facility]P, urgent care, hospital, or halfway...) When possible be specific @ -No Did you speak to anyone other than the patient for history (EMS, parent, family, police, friend...)? What history was obtained from this source @ -No Did you review nursing and triage notes (agree or disagree)? Why? @ -I reviewed and agree with nursing and triage notes Were old charts reviewed (outside hosp., previous admission, EMS record, old EKG, old radiological studies, urgent care reports/EKG's, halfway records)? Report findings @ -No old charts were reviewed Differential Diagnosis (chest pain, altered mental status, abdominal pain women, abdominal pain men, vaginal bleeding, weakness, fever, dyspnea, syncope, headache, dizziness, GI bleed, back pain, seizure, CVA, palpatations, mental health, musculoskeletal)? @ -Differential Back Pain: Strain, zoster, cauda equina syndrome, epidural abscess, vertebral oste omyelitis, discitis, fracture, subluxation, disc herniation, DJD, spinal stenosis, dissection, AAA, pancreatitis, peptic ulcer disease, pyelonephritis, kidney stone, this is not meant to be an all-inclusive list. EKG interpreted by me (3pts min.). @ -none X-rays interpreted by me (1pt min.). @ -None done CT interpreted by me (1pt min.). @ -CT pelvis and lumbar spine show no acute fracture U/S interpreted by me (1pt. min.). @ -None done What testing was considered but not performed or refused? (CT, X-rays, U/S, labs)? Why? @ -None What meds were considered but not given or refused? Why? @ -None Did you discuss the management of the patient with other professionals (professionals i.e. [facility], [facility] RE[facility], lab, RT, psych nurse, secondary social studies teacher, gunstock spray unit adjuster, teacher, chief financial officer, behavioral health case manager)? Give summary @ -Management discussed with Dr. Kam with [facility] who is accepting of the admission. Was smoking cessation discussed for >3mins.? @ -No Was critical care preformed (if so, how long)? @ -No Were there social determinants of health that impacted care today? How? (Homelessness, low income, unemployed, alcoholism, drug addiction, knapp sportation, low edu. Level, literacy, decrease access to med. care, prison, rehab)? @ -No Was there de-escalation of care discussed even if they declined (Discuss DNR or withdrawal of care, Hospice)? DNR status @ -No What co-morbidities impacted this encounter? (DM, HTN, Smoking, COPD, CAD, Cancer, CVA, ARF, Chemo, Hep., AIDS, mental health diagnosis, sleep apnea, morbid obesity)? @ -None Was patient admitted / discharged? Hospital course, mention meds given and route, prescriptions, significant lab abnormalities, going to OR and other pertinent info. @ -admitted patient presented to the emergency department for chief complaint of left hip/back pain that started thursday and she was evaluated at urgent care. She has since been on a Medrol Dosepak and muscle relaxers but she states that the feeling is continuing to worsen. CT lumbar spine obtained which showed bulging discs. CT pelvis showed no acute fracture. She received morphine on the ambulance. Patient was given dilaudid and a lidocaine patch. She reported temporary relief. Pain returned and she is unable to bear weight on left leg. Patient will be admitted for pain management and orthopedics evaluation. Case discussed with Dr. Kam who is accepting of the admission. Patient stable at time of admission. Case discussed with my attending, Dr. Porter . Undiagnosed new problem with uncertain prognosis? @ -No Drug Therapy requiring intensive monitoring for toxicity (Heparin, Nitro, Insulin, Cardizem)? @ -No Were any procedures done? @ -No Diagnosis/symptom? @ -back pain Acute, or Chronic, or Acute on Chronic? @ -acute Uncomplicated (without systemic symptoms) or Complicated (systemic symptoms)? @ -uncomplicated Side effects of treatment? @ -No Exacerbation, Progression, or Severe Exacerbation? @ -No Poses a threat to life or bodily function? How? (Chest pain, [place], [place], pneumonia, PE, COPD, DKA, ARF, appy, cholecystitis, CVA, Diverticulitis, Homicidal, Shi icidal, threat to staff... and all critical care pts) @ -No - Lab Data Result diagrams: 12/14/22 05:53 12/14/22 05:53 Lab Results 12/13/22 Range/Units 03:25 Sodium 137 (137-145) mmol/L Potassium 3.9 (3.5-5.1) mmol/L Chloride 105 (98-107) mmol/L Carbon Dioxide 26 (22-30) mmol/L Anion Gap 6 mmol/L BUN 13 (7-17) mg/dL Creatinine 0.59 (0.52-1.04) mg/dL Est GFR (CKD-EPI)AfAm >90 (>60 ml/min/1.73 sqM) Est GFR (CKD-EPI)NonAf >90 (>60 ml/min/1.73 sqM) Glucose 83 (74-99) mg/dL Calcium 8.9 (8.4-10.2) mg/dL Disposition Clinical Impression: Sciatica, Back pain Disposition: ADMITTED IP TO THIS [facility] Condition: Stable
[2022-12-13] MEDS ORDERED: LIDOCAINE 5% PATCH TOPICAL STA (13:40)
[2022-12-13] MEDS ORDERED: HYDROmorphone 0.5 MG/0.5 ML SYRINGE IVP STA ×2 (13:43→16:56)
--- NOTE | 2022-12-13 14:58 | CT ---
EXAMINATION TYPE: CT lumbar spine wo con DATE OF EXAM: 12/13/2022 COMPARISON: None HISTORY: pulling injury, pain. CT DLP: 786.6 mGycm CONTRAST: None TECHNIQUE: CT of the lumbar spine is performed on a spiral scan at 3 mm thick sections. Reconstructed images are performed in the coronal and sagittal planes. FINDINGS: T12-L1: No focal disc herniation or significant disc bulge is evident. No spinal canal stenosis or neural foraminal stenosis is present. L1-L2: No focal disc herniation or significant disc bulge is evident. No spinal canal stenosis or n eural foraminal stenosis is present L2-L3: Mild disc bulge is present with anterior thecal sac contact. No AP spinal canal stenosis is pr esent. Neural foramen are patent. L3-L4: Broad-based disc bulge has moderate anterior thecal sac compression. No AP spinal canal stenos is present. Neural foramen are patent. L4-L5: Broad-based disc bulge has moderate to large degree of anterior thecal sac compression. There is narrowing of the AP spinal canal. Ligamentum flavum laxity and facet hypertrophy contribute to yoan e spinal canal stenosis. Severe right and moderate left foraminal stenosis is present. L5-S1: Broad-based disc bulge has mild to moderate anterior thecal sac compression. Severe right and moderate left foraminal stenosis present. Vertebral alignment appears normal. Disc heights appear preserved. Vertebral body heights are preser emily. IMPRESSION: 1. Disc bulge with facet hypertrophy and ligamentum flavum laxity L4-5 contributing to spinal canal s tenosis. Severe right foraminal stenosis is present. 2. Broad-based disc bulge and mild to moderate anterior thecal sac compression L5-S1. Severe right an d moderate left foraminal stenosis is present. 3. Broad-based disc bulge with moderate anterior thecal sac compression at L3-4. Severe right and mod erate left
--- NOTE | 2022-12-13 16:21 | CT ---
EXAMINATION TYPE: CT pelvis wo con DATE OF EXAM: 12/13/2022 COMPARISON: None HISTORY: pulling injury, pain. CT DLP: 240.5 mGycm Automated exposure control for dose reduction was used. Contrast: None Technique: Axial images 3 mm thick sections. Obstructive images technique coronal and sagittal planes . FINDINGS: Sacroiliac joints appear normal. Femoral heads articulate with the acetabulum. Symphysis pubis appear s normal. No acute osseous abnormalities. Muscular findings appear normal. No inguinal hernias are e vident. The bowel within the abdomen appear normal. The appendix is visualized is normal. Uterus contains an IUD. Adnexal regions are normal. Bladder is unremarkable. No free fluid is within the pelvis. There is a fecal bolus at the level of r ectum. Correlate for fecal impaction. IMPRESSION: 1. CLINICAL CORRELATION RECOMMENDED FOR FECAL IMPACTION OR RETENTION AT THE RECTUM. 2. PELVIS OTHERWISE APPEARS UNREMARKABLE.
[2022-12-13] MEDS ORDERED: ACETAMINOPHEN TAB 500 MG TAB PO STA (16:56)
[2022-12-13] MEDS ORDERED: KETOROLAC 15 MG/ML 1 ML VIAL IVP STA (16:56)
[2022-12-13] MEDS ORDERED: KETOROLAC 15 MG/ML 1 ML VIAL IVP PRN (17:00)
[2022-12-13] MEDS ORDERED: NALOXONE 0.4 MG/ML 1 ML VIAL IV PRN (17:00)
[2022-12-13] MEDS ORDERED: ACETAMINOPHEN TAB 325 MG TAB PO PRN (17:00)
[2022-12-13 17:19] LABS: Basophils % (A) 0 %; Eosinophils # (A) 0.3 k/uL (0-0.7); Eosinophils % (A) 3 %; HCT 40.7 % (34.0-46.0); HGB 14.1 gm/dL (11.4-16.0); Lymphocytes % (A) 22 %; MCH 32.6 pg (25.0-35.0); MCHC 34.7 g/dL (31.0-37.0); MCV 93.8 fL (80.0-100.0); Mean Platelet Volume 8.1; Monocytes # (A) 0.7 k/uL (0-1.0); Monocytes % (A) 5 %; Neutrophils # (A) 9.3 k/uL (1.3-7.7); Neutrophils % (A) 69 %; Platelet Count 295 k/uL (150-450); RBC 4.34 m/uL (3.80-5.40); RDW 12.9 % (11.5-15.5); WBC 13.4 k/uL (3.8-10.6)
[2022-12-13] MEDS: SODIUM CHLORIDE 0.9% 1,000 ML IV SCH (17:19)
[2022-12-13] MEDS ORDERED: MELATONIN 3 MG TABLET PO PRN (17:38)
[2022-12-13 17:46] LABS: African American GFR (CKD) >90 (>60 ml/min/1.73 sqM); Anion Gap 6 mmol/L; Blood Urea Nitrogen 13 mg/dL (7-17); Calcium 8.9 mg/dL (8.4-10.2); Carbon Dioxide 26 mmol/L (22-30); Chloride 105 mmol/L (98-107); Glucose 83 mg/dL (74-99); Non-African American GFR(CKD) >90 (>60 ml/min/1.73 sqM); Potassium 3.9 mmol/L (3.5-5.1); Sodium 137 mmol/L (137-145)
[2022-12-13] MEDS: ONDANSETRON 4 MG/2 ML VIAL IVP PRN (17:55)
--- NOTE | 2022-12-13 18:19 | P.HPIM ---
History of Present Illness H&P Date: 12/13/22 Patient is a 42-year-old female with PMH of hypertension, GERD presents the ED for back pain. She reports that her pulled on her leg in the bedroom 4 days ago which initiated the pain. Pain has been progressively getting worse since then. Pain is left-sided which starts at the buttocks and radiates down the leg. Pain is 10/10 in severity described at knife like. Pain is worsened with ambulation. She denies any bladder or bowel incontinence. She denies any saddle anesthesia. This prompted her to come to the ED. In the ED, her vital signs were stable, briefly bradycardic with heart rate as low as 52. BMP was pending at the time of this note. CT L-spine was done which showed disc bulge L4-L5 contributing to spinal canal stenosis, disc bulge L5-S1 with mild to moderate anterior thecal sac compression, disc bulge L3-L4 with moderate anterior thecal sac compression along with severe foraminal stenosis in those areas. Pelvic CT showed stool impaction. Patient is admitted for intractable back pain with orthopedic surgery on consultation. Pertinent positives and negatives as discussed in HPI, a complete review of systems was performed and all other systems are negative. General: no distress, appears at stated age Derm: warm, dry Head: atraumatic, normocephalic, symmetric Eyes: EOMI, no lid lag, anicteric sclera Cardiovascular: S1S2 reg, no murmur Lungs: CTA bilateral, no rhonchi, no rales , no accessory muscle use Ext: no gross muscle atrophy, no edema, no contractures Neuro: no focal neuro deficits Psych: Alert, oriented, appropriate affect Intractable back pain Sciatica Spinal canal stenosis L4-L5 Foraminal stenosis L4-L5, L5-S1, L3-L4 Stool impaction Chronic conditions: Hypertension, GERD Based on my assessment of this patient, this patient meets a high complexity level of care. Patient has an acute diagnosis of intractable back pain requiring IV narcotics that poses a threat to life or bodily function. Intractable back pain: [place] 5 Q4H PRN and Dilaudid 0.5 mg IV Q3H PRN for pain. Fall precautions. Orthopedic surgery consult. We will hold off on MRI until Orthopedic evaluation. Spinal canal stenosis L4-L5 Foraminal stenosis L4-L5, L5-S1, L3-L4 Stool impaction: Aggressive bowel regimen. Significant other is the decision maker if she can't make decisions for herself. FULL CODE. SCDs for DVT prophylaxis. I have reviewed the following beverage sales consultant notes: I have reviewed the results of the following tests: CT L Spine. Pelvic CT. I have ordered the following tests: CBC and BMP. I have discussed the care of this patient with the following independent historian: I have independently interpreted the following test below: I have discussed the management of this patient with the following physician: Case discussed with the ED provider in detail. Past Medical History Past Medical History: Hypertension History of Any Multi-Drug Resistant Organisms: None Reported Past Surgical History: Tubal Ligation Additional Past Surgical History / Comment(s): tubal ligation, D and C ablation(2022) Past Anesthesia/Blood Transfusion Reactions: No Reported Reaction Past Psychological History: No Psychological Hx Reported Smoking Status: Former smoker Past Alcohol Use History: None Reported Past Drug Use History: None Reported - Past Family History Father Family Medical History: Cancer Additional Family Medical History / Comment(s): Father of lung cancer. He was a [place] . Mother Family Medical History: No Reported History Additional Family Medical History / Comment(s): Mother is healthy Medications and Allergies Home Medications Medication Instructions Recorded Confirmed Type ALPRAZolam [Xanax] 0.5 mg PO BID PRN 03/25/21 12/13/22 History Fluticasone Nasal [place] [Flonase 1 spray EA NOSTRIL DAILY PRN 05/09/22 12/13/22 History Nasal [place]] Omeprazole 20 mg PO DAILY 05/09/22 12/13/22 History Propranolol HCl [Propranolol HCl 120 mg PO DAILY 05/09/22 12/13/22 History ER] amLODIPine [Norvasc] 5 mg PO DAILY #30 tab 05/13/22 12/13/22 Rx Cholecalciferol [Vitamin D3 (25 50 mcg PO DAILY 12/13/22 12/13/22 History Mcg = 1000 Iu)] Diclofenac Sodium [Voltaren] 25 mg PO BID PRN 12/13/22 12/13/22 History Ferrous Sulfate [Feosol] 325 mg PO DAILY 12/13/22 12/13/22 History Super B Complex 1 tab PO DAILY 12/13/22 12/13/22 History methocarbamoL [Methocarbamol] 750 mg PO Q4H PRN 12/13/22 12/13/22 History methylPREDNISolone Dose Pack See Taper PO DIRECTED 12/13/22 12/13/22 History [Medrol Dose Pack] Allergies Allergy/AdvReac Type Severity Reaction Status Date / Time No Known Allergies Allergy Verified 12/13/22 17:21 Physical Exam Vitals: Vital Signs Temp Pulse Resp BP Pulse Ox 12/13/22 17:28 64 18 125/90 97 12/13/22 15:29 57 L 18 97/62 96 12/13/22 13:43 52 L 20 108/74 100 12/13/22 12:01 98.1 F 62 18 102/69 98 Intake and Output 12/13/22 12/13/22 12/13/22 06:59 14:59 22:59 Other: Weight 68.039 kg Results CBC & Chem 7: 12/13/22 17:12 12/13/22 03:25 Labs: Abnormal Lab Results - Last 24 Hours (Table) 12/13/22 Range/Units 17:12 WBC 13.4 H (3.8-10.6) k/uL Neutrophils # 9.3 H (1.3-7.7) k/uL
[2022-12-13] MEDS: methylPREDNISolone SOD SUCCI 40 MG/ML 1 ML VIAL IV SCH (18:36)
[2022-12-13] MEDS: HYDROmorphone 0.5 MG/0.5 ML SYRINGE IVP PRN (21:32)
[2022-12-13] MEDS: HYDROcodone/APAP 5-325MG 1 EACH TAB PO PRN (22:42)
[2022-12-14] MEDS: methylPREDNISolone SOD SUCCI 40 MG/ML 1 ML VIAL IV SCH ×3 (00:06→15:33)
[2022-12-14] MEDS: HYDROcodone/APAP 5-325MG 1 EACH TAB PO PRN ×5 (02:48→22:47)
[2022-12-14] MEDS: SODIUM CHLORIDE 0.9% 1,000 ML IV SCH (06:13)
[2022-12-14] MEDS: PANTOPRAZOLE 40 MG TABLET PO SCH (09:02)
[2022-12-14] MEDS: amLODIPine 5 MG TAB PO SCH (09:03)
[2022-12-14] MEDS: PROPRANOLOL LA 60 MG CAP.SA.24H PO SCH (09:03)
[2022-12-14 09:04] LABS: Basophils # (A) 0.01 X 10*3/uL (0.00-0.10); Basophils % (A) 0.1 %; Eosinophils # (A) 0 X 10*3/uL (0.04-0.35); Eosinophils % (A) 0 %; HGB 13.4 d/dL (12.0-15.0); Lymphocytes # (A) 0.71 X 10*3/uL (0.90-5.00); Lymphocytes % (A) 7.4 %; MCH 30.9 pg (27.0-32.0); MCHC 32.7 d/dL (32.0-37.0); MCV 94.7 FL (80.0-97.0); Mean Platelet Volume 9.8 FL (9.5-12.2); Monocytes # (A) 0.11 X 10*3/uL (0.20-1.00); Monocytes % (A) 1.2 %; NRBC Per 100 WBC 0 X 10*3/uL (0.00-0.01); Neutrophils # (A) 8.68 X 10*3/uL (1.80-7.70); Platelet Count 351 X 10*3/uL (140-440); RBC 4.33 X 10*6/uL (4.10-5.20); RDW 12.4 % (11.5-14.5); WBC 9.54 X 10*3/uL (4.50-10.00)
[2022-12-14 09:14] LABS: Blood Urea Nitrogen 11.9 mg/dL (9.0-27.0); Calcium 9.5 mg/dL (8.7-10.3); Carbon Dioxide 26.2 mmol/L (21.6-31.8); Chloride 104 mmol/L (96-109); Glucose 137 mg/dL (70-110); Potassium 4.7 mmol/L (3.5-5.5); Sodium 139 mmol/L (135-145)
--- NOTE | 2022-12-14 10:01 | P.CNOR ---
History of Present Illness - [facility] Consult date: 12/14/22 Consult reason: low back pain History of present illness: 42-year-old female presents for low back and left lower extremity pain. She states that two days ago she was with her and she asked him to pull on her leg a little bit and this caused more excruciating pain in her but I can down her left lower extremity to her toes. She went to the urgent care at the time who treated her with muscle relaxers and steroids, but her symptoms got worse so she went to the emergency department. Upon evaluation in the emergency department she was having severe low back and LLE extremity pain, unrelenting, and all the way down to her toes. She denies any perineall numbness or tingling or difficulty with urinating or going to the bathroom. She has not had a bowel movement in a couple days but she has also been taking opioids and is in a lot of pain. She denies any fevers, chills, source of breath or chest pain. Any other symptoms at this time. She has had back pain in the past. This is much different than worse. Review of Systems Constitutional: Reports as per HPI Past Medical History Past Medical History: Hypertension History of Any Multi-Drug Resistant Organisms: None Reported Past Surgical History: Tubal Ligation Additional Past Surgical History / Comment(s): tubal ligation, D and C ablation(2022) Past Anesthesia/Blood Transfusion Reactions: No Reported Reaction Smoking Status: Former smoker - Past Family History Father Family Medical History: Cancer Additional Family Medical History / Comment(s): Father of lung cancer. He was a [place] . Mother Family Medical History: No Reported History Additional Family Medical History / Comment(s): Mother is healthy Medications and Allergies Home Medications Medication Instructions Recorded Confirmed Type ALPRAZolam [Xanax] 0.5 mg PO BID PRN 03/25/21 12/13/22 History Fluticasone Nasal [place] [Flonase 1 spray EA NOSTRIL DAILY PRN 05/09/22 12/13/22 History Nasal [place]] Omeprazole 20 mg PO DAILY 05/09/22 12/13/22 History Propranolol HCl [Propranolol HCl 120 mg PO DAILY 05/09/22 12/13/22 History ER] amLODIPine [Norvasc] 5 mg PO DAILY #30 tab 05/13/22 12/13/22 Rx Cholecalciferol [Vitamin D3 (25 50 mcg PO DAILY 12/13/22 12/13/22 History Mcg = 1000 Iu)] Diclofenac Sodium [Voltaren] 25 mg PO BID PRN 12/13/22 12/13/22 History Ferrous Sulfate [Feosol] 325 mg PO DAILY 12/13/22 12/13/22 History Super B Complex 1 tab PO DAILY 12/13/22 12/13/22 History methocarbamoL [Methocarbamol] 750 mg PO Q4H PRN 12/13/22 12/13/22 History methylPREDNISolone Dose Pack See Taper PO DIRECTED 12/13/22 12/13/22 History [Medrol Dose Pack] Allergies Allergy/AdvReac Type Severity Reaction Status Date / Time No Known Allergies Allergy Verified 12/13/22 17:21 Physical Examination Osteopathic Statement: *. No significant issues noted on an osteopathic structural exam other than those noted in the History and Physical/Consult. - Lumbar Spine Back pain: sudden onset Pain modifiers: with flexion, with extension, with rotation right, with rotation left, with bilateral rotation, with lateral flexion right, with lateral flexion left, with bilateral lateral flexion, throughout ROM Nerve symptoms: tingling of leg or foot: left, burning pain in leg or foot: left, buttock pain radiating to inside of leg: left, buttock pain radiating to outside of leg: left, buttock pain radiating to front of leg: left, leg or foot weakness: left Previous treatment: traction: not effective, previous hospitalization: not effective, heat: not effective, ice: not effective, NSAIDs: not effective, pain medication: somewhat effective, muscle relaxant: not effective, surgery: somewhat effective, exercise: not effective Tenderness with palpation: L/S junction, buttock Appearance: normal - L Spine: dermatomal strength & reflexes bilateral Strength: hip flexion: 5/5 Strength: hip extension: 5/5 Strength: knee flexion: 5/5 Strength: knee extension: 5/5 Strength: ankle dorsiflexion: 4/5 Strength: ankle plantar flexion: 4/5 Strength: ankle inversion: 5/5 Strength: ankle eversion: 5/5 Strength: great toe flexion: 5/5 Strength: great toe extension: 5/5 Reflexes: knee reflex: grade 2, ankle reflex: grade 2 Other reflexes: Babinski's: negative, clonus: negative Nerve sensory abnormalities: buttocks/perianal (S3, S4, S5): no, entire leg: no, medial upper thigh: no, inguinal (L1): no, proximal thigh (L2): no, distal thigh (L3): no, knee (L4): yes, lateral leg and first dorsal webspace (L5): yes, posterior leg and plantar foot (S1): yes, posterior thigh (S2): no Nerve tests: straight leg raising tests: positive (all testing causes extreme pain), contralateral straight leg raising tests: positive Results CT of the lumbar spine without contrast is reviewed. This demonstrates some spo ndylosis of L4 through S1. This is worse at L5 S1. There's minor disc bulge at L5 S1. There's question of disc herniation at L4 L5, which is poorly seen on the CT scan and MRI would be a better visualization of this. Symptoms better as well. No fractures dislocations alignment is stable. - Labs Labs: Abnormal Lab Results - Last 24 Hours (Table) 12/13/22 12/14/22 12/14/22 Range/Units 17:12 05:53 05:53 WBC 13.4 H (3.8-10.6) k/uL Neutrophils # 9.3 H 8.68 H (1.3-7.7) k/uL Lymphocytes # 0.71 L (0.90-5.00) X 10*3/uL Monocytes # 0.11 L (0.20-1.00) X 10*3/uL Eosinophils # 0 L (0.04-0.35) X 10*3/uL Glucose 137 H (70-110) mg/dL H & H 12/13/22 12/14/22 Range/Units 17:12 05:53 Hgb 14.1 13.4 (11.4-16.0) gm/dL Hct 40.7 41.0 (34.0-46.0) % Result Diagrams: 12/14/22 05:53 12/14/22 05:53 Assessment and Plan Assessment: 42 yo female low back pain with LLE radiculopathy Left SIJ pain Plan: MRI w/o Lumbar spine recommend pain meds, trial steroids, antiinflammatories, trial Gabapentin for Sx control PT Further recan lending MRI
[2022-12-14] MEDS: KETOROLAC 15 MG/ML 1 ML VIAL IVP SCH ×3 (10:03→19:46)
--- NOTE | 2022-12-14 12:33 | P.PN ---
Subjective Progress Note Date: 12/14/22 Patient is a 42-year-old female with PMH of hypertension, GERD presents the ED for back pain. She reports that her pulled on her leg in the bedroom 4 days ago which initiated the pain. Pain has been progressively getting worse since then. Pain is left-sided which starts at the buttocks and radiates down the leg. Pain is 10/10 in severity described at knife like. Pain is worsened with ambulation. She denies any bladder or bowel incontinence. She denies any saddle anesthesia. This prompted her to come to the ED. In the ED, her vital signs were stable, briefly bradycardic with heart rate as low as 52. BMP was pending at the time of this note. CT L-spine was done which showed disc bulge L4-L5 contributing to spinal canal stenosis, disc bulge L5-S1 with mild to moderate anterior thecal sac compression, disc bulge L3-L4 with moderate anterior thecal sac compression along with severe foraminal stenosis in those areas. Pelvic CT showed stool impaction. Patient is admitted for intractable back pain with orthopedic surgery on consultation. 12/14 Patient was seen and examined. No acute events overnight. She continues to report 10/10 severity back pain with ambulation. Denies any other complaints. Dr. Woodson request MRI lumbar spine. CBC and BMP is unremarkable. General: no distress, appears at stated age Derm: warm, dry Head: atraumatic, normocephalic, symmetric Eyes: EOMI, no lid lag, anicteric sclera Cardiovascular: S1S2 reg, no murmur Lungs: CTA bilateral, no rhonchi, no rales , no accessory muscle use Ext: no gross muscle atrophy, no edema, no contractures Neuro: no focal neuro deficits Psych: Alert, oriented, appropriate affect Intractable back pain Sciatica Spinal canal stenosis L4-L5 Foraminal stenosis L4-L5, L5-S1, L3-L4 Stool impaction Chronic conditions: Hypertension, GERD Based on my assessment of this patient, this patient meets a high complexity level of care. Patient has an acute diagnosis of intractable back pain requiring IV narcotics that poses a threat to life or bodily function. Intractable back pain: [place] 5 Q4H PRN and Dilaudid 0.5 mg IV Q3H PRN for pain. Fall precautions. Orthopedic surgery on board. MRI L spine ordered. Kris layne consulted. Spinal canal stenosis L4-L5 Foraminal stenosis L4-L5, L5-S1, L3-L4 Stool impaction: Aggressive bowel regimen. Significant other is the decision maker if she can't make decisions for herself. FULL CODE. SCDs for DVT prophylaxis. I have reviewed the following microsoft bi consultant notes: Orthopedic surgery note. I have reviewed the results of the following tests: CBC, BMP. I have ordered the following tests: I have discussed the care of this patient with the following independent his demi: I have independently interpreted the following test below: I have discussed the management of this patient with the following physician: Objective - Vital Signs Vital signs: Vital Signs Temp 98.0 F 12/14/22 07:00 Pulse 60 12/14/22 07:00 Resp 16 12/14/22 07:00 BP 93/62 12/14/22 07:00 Pulse Ox 95 12/14/22 07:00 FiO2 Intake & Output 12/13/22 12/14/22 12/14/22 18:59 06:59 18:59 Weight 68.039 kg 68.039 kg Other: Voiding Method Bedside Commode Bedside Commode # Voids 3 - Labs CBC & Chem 7: 12/14/22 05:53 12/14/22 05:53 Labs: Abnormal Lab Results - Last 24 Hours (Table) 12/13/22 12/14/22 12/14/22 Range/Units 17:12 05:53 05:53 WBC 13.4 H (3.8-10.6) k/uL Neutrophils # 9.3 H 8.68 H (1.3-7.7) k/uL Lymphocytes # 0.71 L (0.90-5.00) X 10*3/uL Monocytes # 0.11 L (0.20-1.00) X 10*3/uL Eosinophils # 0 L (0.04-0.35) X 10*3/uL Glucose 137 H (70-110) mg/dL
[2022-12-14] MEDS: HYDROmorphone 0.5 MG/0.5 ML SYRINGE IVP PRN ×2 (19:43→22:18)
[2022-12-14] MEDS: ONDANSETRON 4 MG/2 ML VIAL IVP PRN (19:46)
[2022-12-14] MEDS: ALPRAZolam 0.5 MG TAB PO PRN (22:48)
[2022-12-15] MEDS: methylPREDNISolone SOD SUCCI 40 MG/ML 1 ML VIAL IV SCH ×4 (01:01→21:40)
[2022-12-15] MEDS: HYDROmorphone 0.5 MG/0.5 ML SYRINGE IVP PRN ×3 (01:01→12:10)
[2022-12-15] MEDS: SODIUM CHLORIDE 0.9% 1,000 ML IV SCH ×3 (01:03→23:42)
[2022-12-15] MEDS: ONDANSETRON 4 MG/2 ML VIAL IVP PRN (03:14)
[2022-12-15] MEDS: KETOROLAC 15 MG/ML 1 ML VIAL IVP SCH ×2 (03:15→07:55)
[2022-12-15] MEDS: HYDROcodone/APAP 5-325MG 1 EACH TAB PO PRN ×5 (03:19→21:40)
[2022-12-15] MEDS: amLODIPine 5 MG TAB PO SCH (07:38)
[2022-12-15] MEDS: PROPRANOLOL LA 60 MG CAP.SA.24H PO SCH (07:38)
[2022-12-15] MEDS: PANTOPRAZOLE 40 MG TABLET PO SCH (07:55)
[2022-12-15] MEDS ORDERED: polyethylene glycoL 3350 17 GM POWD.PACK PO ONE (09:00)
--- NOTE | 2022-12-15 10:00 | P.PN ---
Subjective Progress Note Date: 12/15/22 Principal diagnosis: Low back pain Patient seen and examined this morning. Patient is resting comfortably in bed. She states that her pain is managed on current regimen with IV Dilaudid. Patient does report that she feels like her symptoms are worsening. Patient is scheduled for an MRI of the lumbar spine today at 12:15. She has been transferring herself to bedside [facility]. She states that the pain in the left lower extremity has increased with activity. She is finding relief with ice packs and rest. Patient denies any fevers/chills, nausea/vomiting, or chest pain. Objective - Vital Signs Vital signs: Vital Signs Temp 97.8 F 12/15/22 07:00 Pulse 65 12/15/22 07:00 Resp 16 12/15/22 07:00 BP 94/64 12/15/22 07:00 Pulse Ox 97 12/15/22 07:00 FiO2 Intake & Output 12/14/22 12/15/22 12/15/22 18:59 06:59 18:59 Intake Total 335 Balance 335 Intake: Oral 335 Other: [facility] - Exam Physical Examination General: The patient is awake and alert, in no acute distress Skin: Skin is warm and dry with no obvious rashes or lesions. Eye: Pupils are equal, round and reactive to light, extra-ocular movements are intact; there is normal conjunctiva bilaterally. Neck: The neck is supple, there is no tenderness and ROM intact. Cardiovascular: There is a regular rate and rhythm. No murmur, rub or gallop is appreciated. Respiratory: Lungs are clear to auscultation, respirations are non-labored, titus ath sounds are equal. Gastrointestinal: Soft, non-distended, non-tender abdomen. Back: There is mild tenderness to palpation in the midline region. There is no obvious deformity . Musculoskeletal: ROM limited secondary to pain and stiffness from surgical procedure. Muscle strength in all major muscle groups of bilateral upper extremities 5/5, right lower extremities 5/5, left lower extremity 4+/5 Neurological: CN 2-12 intact. There are no obvious motor or sensory deficits. Movement and coordination equal and intact. Sensory exam to light touch intact C5-T1 and intact from L2-S1. Reflexes 2/4 in bilateral upper and lower extremities. Negative Hoffmans, babinski, and clonus signs. Psychiatric: Cooperative, appropriate mood & affect, normal judgment. - Labs CBC & Chem 7: 12/14/22 05:53 12/14/22 05:53 Labs: Abnormal Lab Results - Last 24 Hours (Table) 12/14/22 12/14/22 Range/Units 05:53 05:53 Neutrophils # 8.68 H (1.80-7.70) X 10*3/uL Lymphocytes # 0.71 L (0.90-5.00) X 10*3/uL Monocytes # 0.11 L (0.20-1.00) X 10*3/uL Eosinophils # 0 L (0.04-0.35) X 10*3/uL Glucose 137 H (70-110) mg/dL Assessment and Plan Assessment: Low back pain Left lower extremity radiculopathy Left SIJ pain Plan: Awaiting results from MRI of the lumbar spine 2. Appreciate medical management 3. Pain management - Continue with New [place], IV dilaudid, Toradol and IV steroids. Patient may benefit from a nerve modulator. 4. GI prophylaxis - senna, miralax 5. DVT prophylaxis - scds 6. PT/OT - weightbearing as tolerated with a walker as needed. 7. Appreciate consult
--- NOTE | 2022-12-15 13:26 | MR ---
EXAMINATION TYPE: MR lumbar spine wo con DATE OF EXAM: 12/15/2022 12:46 PM COMPARISON: CT 12/13/2022. CLINICAL INDICATION: Female, 42 years old with history of acute onset radiculopathy and weakness; PHH , Back pain, acute onset radiculopathy and weakness. TECHNIQUE: Multi planar, multi sequence imaging was performed utilizing: T1-weighted, T2-weighted, a nd turbo inversion recovery imaging of the lumbar spine. IV Contrast: cc . None. FINDINGS: Alignment: The lumbar vertebral bodies have preserved heights and alignment. Cord: The conus medullaris and the distal spinal cord appear unremarkable with regards to their signa l intensity and morphology. Bones/Discs: Multilevel disc degeneration changes. There is scattered disc desiccation disc space xavi rowing worse at L4-L5. Facet arthropathy throughout the spine. T12-L1: No evidence of significant spinal canal stenosis or neural foraminal stenosis. L1-L2: No evidence of significant spinal canal stenosis or neural foraminal stenosis. L2-L3: No evidence of significant spinal canal stenosis or neural foraminal stenosis. L3-L4: Disc bulge and facet joint arthropathy result in mild spinal canal and mild bilateral neural f oraminal stenosis. L4-L5: Disc bulge with Left central and subarticular extrusion extending along the anterior left aspe ct of the thecal sac. Inferior migration up to 16 mm. This results in moderate to severe spinal canal stenosis and moderate to severe bilateral neural foraminal stenosis. L5-S1: The disc is rounded posterior morphology without significant spinal canal stenosis. Facet join t arthropathy with moderate to severe bilateral neural foraminal stenosis. No significant spinal canal or neural foraminal stenosis in the remainder of the visualized levels. Other findings: None. IMPRESSION: 1. L4-L5 left central and subarticular disc extrusion with inferior migration of disc material up to 16 mm with marked severe spinal canal and bilateral neural foraminal stenosis. 2. L5-S1 moderate to severe bilateral neural foraminal stenosis
--- NOTE | 2022-12-15 14:18 | P.PN ---
Subjective Progress Note Date: 12/15/22 Patient is a 42-year-old female with PMH of hypertension, GERD presents the ED for back pain. She reports that her pulled on her leg in the bedroom 4 days ago which initiated the pain. Pain has been progressively getting worse since then. Pain is left-sided which starts at the buttocks and radiates down the leg. Pain is 10/10 in severity described at knife like. Pain is worsened with ambulation. She denies any bladder or bowel incontinence. She denies any saddle anesthesia. This prompted her to come to the ED. In the ED, her vital signs were stable, briefly bradycardic with heart rate as low as 52. BMP was pending at the time of this note. CT L-spine was done which showed disc bulge L4-L5 contributing to spinal canal stenosis, disc bulge L5-S1 with mild to moderate anterior thecal sac compression, disc bulge L3-L4 with moderate anterior thecal sac compression along with severe foraminal stenosis in those areas. Pelvic CT showed stool impaction. Patient is admitted for intractable back pain with orthopedic surgery on consultation. 12/14 Patient was seen and examined. No acute events overnight. She continues to report 10/10 severity back pain with ambulation. Denies any other complaints. Dr. Woodson request MRI lumbar spine. CBC and BMP is unremarkable. 12/15 Patient was seen and examined. No acute events overnight. She reports excruciating 10/10 pain which prevents her from moving. MRI L spine shows L4L5 severe spinal canal stenosis and foraminial stenosis (also in L5S1) General: no distress, appears at stated age Derm: warm, dry Head: atraumatic, normocephalic, symmetric Eyes: EOMI, no lid lag, anicteric sclera Cardiovascular: Good distal perfusion in all 4 extremities. Lungs: Breathing comfortably , no accessory muscle use Ext: no gross muscle atrophy, no edema, no contractures Neuro: no focal neuro deficits Psych: Alert, oriented, appropriate affect Intractable back pain Sciatica Spinal canal stenosis L4-L5 Foraminal stenosis L4-L5, L5-S1 Stool impaction Chronic conditions: Hypertension, GERD Based on my assessment of this patient, this patient meets a high complexity level of care. Patient has an acute diagnosis of intractable back pain requiring IV narcotics that poses a threat to life or bodily function. Intractable back pain: [place] 5 Q4H PRN and Dilaudid 0.5 mg IV Q3H PRN for pain. Fall precautions. Orthopedic surgery on board. MRI L spine as above. Pain management consulted. Spinal canal stenosis L4-L5 Foraminal stenosis L4-L5, L5-S1, L3-L4 Stool impaction: Aggressive bowel regimen. Significant other is the decision maker if she can't make decisions for herself. FULL CODE. SCDs for DVT prophylaxis. I have reviewed the following marketing sales consultant notes: Orthopedic surgery note. I have reviewed the results of the following tests: MRI L spine. I have ordered the following tests: I have discussed the care of this patient with the following independent historian: I have independently interpreted the following test below: I have discussed the management of this patient with the following physician: Objective - Vital Signs Vital signs: Vital Signs Temp 97.8 F 12/15/22 07:00 Pulse 65 12/15/22 07:00 Resp 16 12/15/22 07:00 BP 94/64 12/15/22 07:00 Pulse Ox 97 12/15/22 07:00 FiO2 Intake & Output 12/14/22 12/15/22 12/15/22 18:59 06:59 18:59 Intake Total 335 Balance 335 Intake: Oral 335 Other: Voiding Method Bedside Commode Bedside Commode Bedside Commode # Voids 1 - Labs CBC & Chem 7: 12/14/22 05:53 12/14/22 05:53
[2022-12-15] MEDS: GABAPENTIN 300 MG CAP PO SCH ×2 (15:10→21:39)
[2022-12-15] MEDS: ALPRAZolam 0.5 MG TAB PO PRN (23:06)
--- NOTE | 2022-12-16 08:03 | P.PN ---
Subjective Progress Note Date: 12/16/22 Principal diagnosis: Low back pain Patient seen and examined this morning. Patient is resting comfortably in bed. She states that her pain is managed on current regimen with IV Dilaudid and Gabapentin. She has remained NPO since ME. Patient is scheduled for L4-L5 YASSINE performed by Dr. Howell today. She has been transferring herself to bedside commode. Patient denies any fevers/chills, nausea/vomiting, or chest pain. Objective - Vital Signs Vital signs: Vital Signs Temp 98.0 F 12/16/22 07:00 Pulse 61 12/16/22 07:00 Resp 16 12/16/22 07:00 BP 121/78 12/16/22 07:00 Pulse Ox 98 12/16/22 07:00 FiO2 Intake & Output 12/15/22 12/16/22 12/16/22 18:59 06:59 18:59 Other: Voiding Method Bedside Commode Bedside Commode # Voids 2 2 - Exam Physical Examination General: The patient is awake and alert, in no acute distress Skin: Skin is warm and dry with no obvious rashes or lesions. Eye: Pupils are equal, round and reactive to light, extra-ocular movements are intact; there is normal conjunctiva bilaterally. Neck: The neck is supple, there is no tenderness and ROM intact. Cardiovascular: There is a regular rate and rhythm. No murmur, rub or gallop is appreciated. Respiratory: Lungs are clear to auscultation, respirations are non-labored, breath sounds are equal. Gastrointestinal: Soft, non-distended, non-tender abdomen. Back: There is mild tenderness to palpation in the midline region. There is no obvious deformity . Musculoskeletal: ROM limited secondary to pain and stiffness from surgical procedure. Muscle strength in all major muscle groups of bilateral upper extremities 5/5, right lower extremities 5/5, left lower extremity 4+/5 Neurological: CN 2-12 intact. There are no obvious motor or sensory deficits. Movement and coordination equal and intact. Sensory exam to light touch intact C5-T1 and intact from L2-S1. Reflexes 2/4 in bilateral upper and lower extremities. Negative Hoffmans, babinski, and clonus signs. Psychiatric: Cooperative, appropriate mood & affect, normal judgment. - Labs CBC & Chem 7: 12/14/22 05:53 12/14/22 05:53 Assessment and Plan Assessment: Low back pain Left lower extremity radiculopathy Left SIJ pain Plan: Remain NPO for Lumbar YASSINE 2. Appreciate medical management 3. Pain management - Continue with [place], IV dilaudid, Toradol, Gabapentin and IV steroids. 4. GI prophylaxis - senna, miralax 5. DVT prophylaxis - scds 6. PT/OT - weightbearing as tolerated with a walker as needed. 7. Appreciate consult
[2022-12-16] MEDS ORDERED: LACTATED RINGERS 1,000 ML IV ONE (09:28)
[2022-12-16] MEDS ORDERED: methylPREDNISolone ACETATE 80 MG/ML 1 ML VIAL ONE (09:49)
[2022-12-16] MEDS ORDERED: IOPAMIDOL M200 10 ML VIAL ONE (09:49)
--- NOTE | 2022-12-16 09:56 | P.PCN ---
Date of Procedure: 12/16/22 Procedure(s) Performed: PREOPERATIVE DIAGNOSIS: 1- Lumbar Degenerative Disc Diseases 2-Lumbar radiculopathy. 3-lumbar spinal stenosis POSTOPERATIVE DIAGNOSIS: 1-lumbar degenerative disc disease. 2-lumbar radiculopathy. 3-lumbar spinal stenosis. PROCEDURE 1. Lumbar epidural steroid injection under fluoroscopic guidance at the L4-5 level. (Fluoroscopy imaging was available in radiology department) 2. Lumbar epidurogram. ANESTHESIA: Lidocaine 1% 3 and then only. EBL: Minimal PROCEDURE INDICATION: The patient with low back pain and radiculitis symptoms unresponsive to conservative treatment. Fluoroscopy was used to optimize visualization of the needle placement and to maximize safety. PROCEDURE DESCRIPTION / TECHNIQUE: The patient was seen and identified in the preoperative area. Risks, benefits, complications including but not limited to infections ,bleeding ,allergic reaction to the medications ,nerve damage and not complete pain releife , and alternatives were discussed with the patient. The patient agreed to proceed with the procedure and signed the consent, and vital signs were stable. Patient was taken to the OR and time out was completed. The patient was placed in the prone position on procedure table and a pillow was placed under the abdomen to reduce lumbar lordosis. The lumbosacral area was prepped and draped in the usual sterile fashion.ere closely monitored during the procedure. Vital signs was monitered during the entire procedure. Using anterior-posterior fluoroscopy, the L4-5 interlaminar space was identified and the skin over this site was marked and then infiltrated with 1% lidocaine subcutaneously. Subsequently, a 20-gauge Tuohy epidural needle was inserted and advanced toward the epidural space using the ``Loss of resistance technique and guided by AP and lateral fluoroscopy. The correct needle position in the epidu ral space was verified with the injection of 2 mL of the water soluble contrast dye Isovue 200 contrast and observing an excellent epidurogram with the epidural spread of the dye, after negative aspiration for blood and CSF and in the absence of paresthesias. Again after negative aspiration, a 6 ml mixture containing 80 mg of Depo-medrol ( Preservetive Free ), and 2 ml of preservative free Normal Saline, and 2 ml of preservative free lidocaine 1% solution was injected and a washout of epidurogram was seen. Needle was withdrawn intact, skin was cleansed, and bandages were applied. COMPLICATIONS: None DISPOSITION / PLANS: The patient was placed in a supine position and transferred to the recovery area in a stable condition for observation. There was no evidence of lower extremity motor or sensory deficit after the procedure. Patient was discharged from the recovery room after meeting discharge criteria. Home discharge instructions were given to the patient by the staff. The patient was reexamined prior to discharge. The patient will schedule a follow up in the clinic in 2-4 weeks.
--- NOTE | 2022-12-16 10:03 | FL ---
Intraoperative/procedural fluoroscopic services were provided. Total fluoroscopy time is 2.2 seconds with a total of 1 submitted images to PACS. Please see the operative/procedural note for further deta ils. DAP: [id number] mGym2
[2022-12-16] MEDS: HYDROmorphone 0.5 MG/0.5 ML SYRINGE IVP PRN (10:37)
[2022-12-16] MEDS: PROPRANOLOL LA 60 MG CAP.SA.24H PO SCH (10:39)
[2022-12-16] MEDS: GABAPENTIN 300 MG CAP PO SCH (10:39)
[2022-12-16] MEDS: PANTOPRAZOLE 40 MG TABLET PO SCH (10:39)
[2022-12-16] MEDS: amLODIPine 5 MG TAB PO SCH (10:40)
[2022-12-16] MEDS: HYDROcodone/APAP 5-325MG 1 EACH TAB PO PRN (12:06)
--- NOTE | 2022-12-16 13:02 | P.DS ---
Providers Date of admission: 12/13/22 16:56 Expected date of discharge: 12/16/22 Attending physician: Guilherme Kam MD Consults: 12/13/22 18:15 Consult Physician Routine Consulting Provider: Rene Woodson Consult Reason/Comments: Back pain Do you want consulting provider notified?: Yes 12/14/22 08:58 Consult Physician Routine Consulting Provider: Adán Howell Consult Reason/Comments: intractable back pain Do you want consulting provider notified?: Yes 12/15/22 14:15 Consult Physician Urgent Consulting Provider: Adán Howell Consult Reason/Comments: L4-5 YASSINE Do you want consulting provider notified?: Yes Primary care physician: Alex Lee Hospital Course: Discharge Diagnosis: Lumbar stenosis with bulging disks L3 through L5 Acute lower back pain with left-sided sciatica Hypertension GERD Hospital Course: Patient is a pleasant 42-year-old female with a past medical history of hypertension, GERD, and former nicotine use. She presented to the emergency department on 12/13/22 with a chief complaint of back pain. Patient reported pain began approximately 4 days before arrival and is to lower left back radiating into her buttocks and down her left leg described as 10 out of 10 in severity. Patient denied having any neurological deficits including numbness/tingling/weakness. Denied having any saddlebag anesthesias or involuntary loss of bowel or bladder. She underwent full evaluation in the emergency department. CT lumbar spine without contrast was completed revealing disc bulge with facet hypertrophy in ligamentum flavum laxity L4 through L5 contributing to spinal canal stenosis and severe right foraminal stenosis, broad based disc bulge and mild to moderate anterior thecal sac compression L5 through S1 with severe right and moderate left foraminal stenosis present and broad- based disc bulge with moderate anterior thecal sac compression at L3 through L4 with severe right and moderate left foraminal stenosis. Labs were completed and reviewed. CBC revealed mild leukocytosis with WBC count of 13.4 and BMP was unremarkable. Patient was admitted under our services with consultation to orthospine specialist. MRI lumbar spine then completed showing L4 through L5 left central and subarticular disc extrusion with inferior migration of disc material up to 16 mm with marked severe spinal canal and bilateral neural foraminal stenosis. Orthospine specialist recommending epidural injection for initial management and patient to continue with weightbearing as tolerated with use of walker if needed. Anesthesiology was consulted and patient underwent lumbar epidural steroid injection under fluoroscopic guidance at the L4 through L5 level by Dr. Howell. Patient cleared by anesthesiology, orthospine surgery, and medically stable for discharge at this time. Patient discharged home on lidocaine patches, Neurontin, [place], and Robaxin. Patient follow up outpatient with PCP in 1-2 days and orthospine surgery in 1-2 weeks. Physical exam: Patient seen and examined at bedside upon return from L4 through L5 YASSINE. Patient currently reports pain remains to back but continues to deny having any neurological deficits including numbness/tingling/weakness and denies any saddle bag anesthesias or involuntary loss of bowel or bladder. She does report shooting pain down left lateral leg when pain in lower back is severe. Patient was educated we will achieve pain control prior to discharge and that she would be discharged home on pain medication as final injection may take up to 3 days prior to having pain control/improvement. Patient verbalized understanding and denied having any further questions, needs, or concerns at this time. Patient also educated on alternative pain measures including heating pad as needed. Vital signs reviewed and stable. General: Nontoxic, no distress and appears stated age. Derm: Skin warm and dry, normal coloration for ethnicity. Head: Atraumatic, normocephalic and symmetric. Eyes: EOMs intact, no lid lag, and anicteric sclera Mouth: no lip lesions, mucus membranes moist Cardiovascular: regular rate and rhythm with normal S1S2, no murmur, positive posterior tibial pulses bilaterally, and cap refill < 2 seconds. Lungs: Respirations even, regular, and unlabored on room air. Lungs CTA bilaterally, no rhonchi, no rales, no wheezing, and no accessory muscle usage. Abdominal: soft, nontender to palpation, no guarding, no appreciable organomegaly Ext: ROM intact. No gross muscle atrophy, no edema, no contractures Neuro: Speech clear, face symmetrical and CN II-XII grossly intact with no noted focal neuro deficits Psych: Alert and oriented to person, place, time, and situation. Appropriate and pleasant affect. A total of 32 minutes of time were spent preparing this complex discharge summary. Pt was discharged on 12/16/22 at 1 PM Patient was seen independently by Nurse Practitioner. This document was prepared using [employer] dictation software. Please allow for errors in assistant professor of communication while rare they do occur. Patient Condition at Discharge: Stable Plan - Discharge Summary New Discharge Prescriptions: New methocarbamoL [Robaxin-750] 750 mg PO QID PRN #60 tab PRN Reason: Muscle Spasm HYDROcodone/APAP 5-325MG [[place] 5-325] 1 each PO Q4HR PRN #18 tab PRN Reason: Moderate Pain (Scale 4 To 6) Gabapentin 300 mg PO TID #90 cap Lidocaine 5% Patch [Lidoderm 5% Patch] 1 patch TOPICAL DAILY 30 Days #30 patch Continue Propranolol HCl [Propranolol HCl ER] 120 mg PO DAILY Omeprazole 20 mg PO DAILY amLODIPine [Norvasc] 5 mg PO DAILY #30 tab Cholecalciferol [Vitamin D3 (25 Mcg = 1000 Iu)] 50 mcg PO DAILY ALPRAZolam [Xanax] 0.5 mg PO BID PRN PRN Reason: Anxiety Fluticasone Nasal [place] [Flonase Nasal [place]] 1 spray EA NOSTRIL DAILY PRN PRN Reason: Allergy Symptoms Super B Complex 1 tab PO DAILY Ferrous Sulfate [Iron (65 MG Elemental)] 325 mg PO DAILY Diclofenac Sodium [Voltaren] 25 mg PO BID PRN PRN Reason: Pain methocarbamoL [Methocarbamol] 750 mg PO Q4H PRN PRN Reason: Muscle Spasm Discontinued methylPREDNISolone Dose Pack [Medrol Dose Pack] See Taper PO DIRECTED Discharge Medication List ALPRAZolam [Xanax] 0.5 mg PO BID PRN 03/25/21 [History] Fluticasone Nasal [place] [Flonase Nasal [place]] 1 spray EA NOSTRIL DAILY PRN 05/09/22 [History] Omeprazole 20 mg PO DAILY 05/09/22 [History] Propranolol HCl [Propranolol HCl ER] 120 mg PO DAILY 05/09/22 [History] amLODIPine [Norvasc] 5 mg PO DAILY #30 tab 05/13/22 [Rx] Cholecalciferol [Vitamin D3 (25 Mcg = 1000 Iu)] 50 mcg PO DAILY 12/13/22 [History] Diclofenac Sodium [Voltaren] 25 mg PO BID PRN 12/13/22 [History] Ferrous Sulfate [Iron (65 MG Elemental)] 325 mg PO DAILY 12/13/22 [History] Super B Complex 1 tab PO DAILY 12/13/22 [History] methocarbamoL [Methocarbamol] 750 mg PO Q4H PRN 12/13/22 [History] Gabapentin 300 mg PO TID #90 cap 12/16/22 [Rx] HYDROcodone/APAP 5-325MG [[place] 5-325] 1 each PO Q4HR PRN #18 tab 12/16/22 [Rx] Lidocaine 5% Patch [Lidoderm 5% Patch] 1 patch TOPICAL DAILY 30 Days #30 patch 12/16/22 [Rx] methocarbamoL [Robaxin-750] 750 mg PO QID PRN #60 tab 12/16/22 [Rx] Follow up Appointment(s)/Referral(s): Alex Lee MD [Primary Care Provider] - 1-2 days Rene Woodson DO [Doctor of Osteopathic Medicine] - 2 Weeks Patient Instructions/Handouts: Lumbar Nerve Root Injection (DC), Back Pain (GEN), Lower Back Exercises (GEN) Discharge/Stand Alone Forms: Anes Pain/[place] Instructions Discharge Disposition: HOME SELF-CARE
[2022-12-16 14:35] VITALS: BP 112/76; PULSE 64; RESP 16; TEMP 98
== END 2022-12-16 15:36 | disposition home or self-care (01) | DRG 347 ==
LOC: EC 11:41 → 6NMEDSUR 16:56 → OBSVTOIN 16:56 → 6NMEDSUR 18:28
PROVIDERS: ADMIT Family Medicine; ATTEND Family Medicine
PROC: B01B1ZZ Fluoroscopy of Spinal Cord using Low Osmolar Contrast (ICD-10-PCS; 2022-12-16)
PROC: 3E0R33Z Introduction of Anti-inflammatory into Spinal Canal, Percutaneous Approach (ICD-10-PCS; principal; 2022-12-16 14:00)
DX: M48.061 Spinal stenosis, lumbar region without neurogenic claudication (principal); M51.16 Intervertebral disc disorders with radiculopathy, lumbar region; K21.9 Gastro-esophageal reflux disease without esophagitis; I10 Essential (primary) hypertension; K56.41 Fecal impaction; Z79.899 Other long term (current) drug therapy; Z80.1 Family history of malignant neoplasm of trachea, bronchus and lung; Z87.891 Personal history of nicotine dependence
CPT/HCPCS: 36415; 72131; 72148; 72192; 80048; 85025; 96361; 96374; 96375; 96376; 99285

== ENCOUNTER → 2023-01-07 | Outpatient (CLI) | payer OTHER ==
[2023-01-07 12:03] VITALS: BP 132/91; PULSE 93; RESP 16; TEMP 98.7
== END ==
LOC: PNWHC3 09:49
PROVIDERS: ATTEND Anesthesiology
DX: M47.816 Spondylosis without myelopathy or radiculopathy, lumbar region (principal)
CPT/HCPCS: 99211

== ENCOUNTER → 2023-02-18 | Outpatient (CLI) | payer OTHER ==
[2023-02-18 12:32] VITALS: BP 121/89; PULSE 82; RESP 16
--- NOTE | 2023-02-18 14:48 | P.PAINPG ---
PQRS Measure Charge Sheet Comment: HISTORY OF PRESENT ILLNESS: 42 yr old female as a referral from Dr Kam presents today w severe and chronic LBP secondary to DDD, spondylosis and facet arthropathy without myelopathy for evaluation s/p YASSINE L4-L5 #1. Pt states she experienced 50% pain relief x 4 wks s/p procedure. Pt states pain level is provoked at 5/10 in intensity, constant, localized in the lower lumbar spine, sharp in character without shooting pain. Pain is provoked by twisting, bending, lifting. Pain is alleviated slightly by medications, PT x 2 wks which she is currently in, heat, adding pressure, repositioning and rest. Interventional procedures include YASSINE L4-L5 x1 Medications include [place], Tyl, Ibu, Naproxen REVIEW OF ORGAN SYSTEMS: CONSTITUTIONAL: No fevers or chills. No recent weight loss. NEUROLOGICAL: + numbness and tingling along the distal extremities. No seizure disorders or headaches. MUSCULOSKELETAL: + pain PSYCHIATRIC: Denies current depression or suicidal thoughts. Physical Examinations : Constitutional : Cooperative , not in acute distress . Neurologic : Cranial nerve II to XII intact. No focal neurological deficits. Psychiatric : alert & oriented x 3. Matching mood & appropriate affect. Judgment & insight intact. Musculoskeletal : Cervical Spine Motor strength in the deltoid and biceps: Normal right side. Normal Left side Motor strength biceps and the wrist extensors: Normal right side . Normal left side Motor strength in the triceps muscle: Normal right side. Normal left side Deep tendon reflexes: Normal at the biceps. Normal at Brachioradialis. Normal at triceps Vertebral body tenderness to deep palpation over Cervical facet loading test: positive bilaterally Spurling test: positive bilaterally Neck distraction test: positive bilaterally Edilia sign: positive bilaterally Lumbar spine Motor strength lower extremities ,thigh and legs 5/5 Right side , 5/5 Left side Deep tendon reflexes : Normal Knee Jerk. Normal Ankle Jerk Vertebral body tenderness over L4 Garber Test positive Lumbar facet Loading Test: positive Right / positive Left Range of motion of the lumbar spine Flexion 30 degrees, extension 10 degrees Straight Leg Raise test: Left/ Right positive at 35 degrees Kerline test: positive right / positive left. Severe tenderness over the Sacroiliac joint on the Right / Left sides Gaenslen test: positive bilaterally Seated flexion test: positive bilaterally. Sacral spine : Severe tenderness over the Sacroiliac joint: right side / left side Range of motion: Flexion of the lumbar spine <60 degrees Range of motion: Extension of the lumbar spine <20 degrees Gaenslen's Test positive Juan Jose's Test positive Kerline test: positive right side / left side Thigh Thrust Test Sacral Thrust Test Imaging: CT without contrast of the lumbar spine from 12/13/22 reviewed Assessment/ Plan : L4-L5 disc herniation Will follow up w her Neurosurgeon and may RTC on an as needed basis. All questions answered. I have spent greater than 30 minutes on patient care today. Dr Howell was available by phone for the evaluation of this patient. The time was used to review the medical records including relevant urine studies and Prescription history (MAPs), review of the available imaging, evaluation and examination of the patient, coordination of care with the medical staff and if applicable referring physicians, as well as creation of the medical record PQRS Narrative: Smoking Status Never smoker Hx Alcohol Use (MH) No Home Medications: Ambulatory Orders ALPRAZolam [Xanax] 0.5 mg PO BID PRN 03/25/21 Fluticasone Nasal [place] [Flonase Nasal [place]] 1 spray EA NOSTRIL DAILY PRN 05/09/22 Omeprazole 20 mg PO DAILY 05/09/22 Propranolol HCl [Propranolol HCl ER] 120 mg PO DAILY 05/09/22 Cholecalciferol [Vitamin D3 (25 Mcg = 1000 Iu)] 50 mcg PO DAILY 12/13/22 Diclofenac Sodium [Voltaren] 25 mg PO BID PRN 12/13/22 Ferrous Sulfate [Iron (65 MG Elemental)] 325 mg PO DAILY 12/13/22 Super B Complex 1 tab PO DAILY 12/13/22 methocarbamoL 750 mg PO Q4H PRN 12/13/22 Gabapentin 300 mg PO TID #90 cap 12/16/22 HYDROcodone/APAP 5-325MG [[place] 5-325] 1 each PO Q4HR PRN #18 tab 12/16/22 Lidocaine 5% Patch [Lidoderm 5% Patch] 1 patch TOPICAL DAILY 30 Days #30 patch 12/16/22 methocarbamoL [Robaxin-750] 750 mg PO QID PRN #60 tab 12/16/22 Controlled Substance Measures - Controlled Substance Measures Is patient prescribed a controlled substance at discharge?: No
== END ==
LOC: PNWHC3 10:24
PROVIDERS: ATTEND Specialist
DX: M51.26 Other intervertebral disc displacement, lumbar region (principal); M47.816 Spondylosis without myelopathy or radiculopathy, lumbar region
CPT/HCPCS: 99211

== ENCOUNTER → 2023-07-08 | Outpatient (CLI) | payer OTHER ==
--- NOTE | 2023-07-08 22:07 | MM ---
Reason for Exam: Screening (asymptomatic). Last screening mammogram was performed 12 month(s) ago. Patient History: Menarche at age 11. First Full-Term at age 19. Patient has history of breast feeding. Hormonal Contraceptives for 2 months. Paternal grandmother had breast cancer at or over age 50. Risk Values: Kristen 5 year model risk: 0.7%. NCI Lifetime model risk: 8.6%. Prior Study Comparison: 06/10/2016 Bilateral Diagnostic Mammogram, [facility]. 06/25/2022 Bilateral Screening Mammogram, [facility]. Tissue Density: There are scattered fibroglandular densities. Findings: Analyzed By CAD. The pattern is symmetrical. No significant interval change is evident. No suspicious groups of microcalcifications, spiculated or lobular masses, architectural distortion or other secondary signs of malignancy are mammographically apparent. Overall Assessment: Benign, BI-RAD 2 Management: Screening Mammogram of both breasts in 1 year. A negative mammogram report should not preclude additional follow up of suspicious palpable abnormalities. Patient should continue monthly self breast exam. A clinical breast exam by your physician is recommended on an annual basis and results should be correlated with mammographic findings. Electronically signed and approved by: Vinicius Muñiz D.O. Radiologis
== END | disposition home or self-care (01) ==
LOC: RADMAMWWP 06-24 13:22
PROVIDERS: ATTEND Family Medicine
DX: Z12.31 Encounter for screening mammogram for malignant neoplasm of breast (principal); Z80.3 Family history of malignant neoplasm of breast
CPT/HCPCS: 77067

== ENCOUNTER 2024-05-27 09:14 | Day surgery (SDC) | payer OTHER ==
[2024-05-27 09:41] VITALS: RESP 16; TEMP 98.2
[2024-05-27] MEDS: LACTATED RINGERS 1,000 ML IV SCH (09:50)
[2024-05-27] MEDS: IV FLUID CONTINUATION 1,000 ML IV ONE (09:50)
[2024-05-27] MEDS: LIDOCAINE 1% (10MG/ML) FOR IV START INTRADERMA STA (09:50)
[2024-05-27] MEDS ORDERED: PROPOFOL 10 MG/ML 20 ML VIAL IV ONE (10:00)
--- NOTE | 2024-05-27 10:14 | P.PCN ---
Date of Procedure: 05/27/24 Procedure(s) Performed: BRIEF HISTORY: Patient is a 44-year-old pleasant white female scheduled for an elective colonoscopy as a part of screening for colon cancer. PROCEDURE PERFORMED: Colonoscopy. PREOPERATIVE DIAGNOSIS: Screening for colon cancer. IV sedation per Anesthesia. PROCEDURE: After informed consent was obtained, the patient, was brought into the endoscopy unit. IV sedation was administered by Anesthesia under continuous monitoring. Digital rectal examination was normal. Initially the Olympus CF-160 flexible video colonoscope was then inserted in the rectum, gradually advanced into the cecum without any difficulty. Careful examination was performed as the scope was gradually being withdrawn. Ileocecal valve and the appendiceal orifice were visualized and appeared normal. Prep was excellent. Mucosa of the cecum, ascending colon, transverse colon, descending colon, sigmoid colon, and rectum appeared normal. Retroflexion was performed in the rectum and no lesions were seen. The patient tolerated the procedure well. IMPRESSION: Normal-appearing colon from rectum to cecum with no evidence of colorectal neoplasia. RECOMMENDATIONS: Findings of this examination were discussed with the patient as well as her family. She was advised to have repeat screening colonoscopy in 10 years..
[2024-05-27 10:36] VITALS: BP 142/97; PULSE 74
== END 2024-05-27 10:52 | disposition home or self-care (01) ==
LOC: ORWHC2ENDO 09:14
PROVIDERS: ATTEND Internal Medicine Gastroenterology
DX: Z12.11 Encounter for screening for malignant neoplasm of colon (principal); I10 Essential (primary) hypertension; K21.9 Gastro-esophageal reflux disease without esophagitis; M54.50 Low back pain, unspecified; Z89.112 Acquired absence of left hand; Z79.899 Other long term (current) drug therapy
CPT/HCPCS: 81025; 45378; J2704